=== PATIENT | male | born 1975 | race African-American/Black ===

== ENCOUNTER 2016-07-02 17:03 | Inpatient (IN) | payer OTHER ==
[~2016-07-02] VITALS: Ht 177.8 cm; Wt 140.6 kg
--- NOTE | ~2016-07-02 | EKG ---
[address] [address] ELECTROCARDIOGRAM REPORT Name: JOSEFA DAILY Room #: 443-P ADM IN M.R.#: [id number] Admission: 07/02/16 Attend Phys: Jakub Olvera MD Discharge: Date of : 75 Report #: [id number] THIS REPORT FOR: //name// 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
--- NOTE | ~2016-07-02 | HC ---
[facility] [place] [address] CONSULTATION Name: ABIMBOLAJOSEFA ROBBIE Room #: 443-P ADM IN M.R.#: [id number] Admission: 07/02/16 Attend Phys: Jakub Olvera MD Discharge: Date of : 75 Report #: [id number] THIS REPORT FOR: //name// CC: Leon Olvera DATE OF CONSULTATION: 07/03/2016. REASON FOR CONSULTATION: Chronic kidney disease. HISTORY OF PRESENT ILLNESS: The patient is extremely well known to our service, had several recent admissions [facility] with longstanding diabetes, poorly controlled and now progressive renal disease with creatinine usually running between 2.5 and 3. Last admitted in last month. 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 PAST MEDICAL HISTORY: Hypertension, diabetes, poorly controlled, previous TIA. he has had some diastolic cardiac dysfunction as well. HOME MEDICATIONS: Include losartan I believe 50 mg a day, Bystolic 20 mg a day, insulin, atorvastatin, torsemide 40 mg a day. PAST SURGICAL HISTORY: Also had a laparoscopic cholecystectomy. FAMILY HISTORY: Positive for diabetes and hypertension as well as renal disease. SOCIAL HISTORY: No smoking, no recreational drug use. He is an occasional drinker. REVIEW OF SYSTEMS: GENERAL: He is just having a lot of trouble getting around, easily short-winded. EYES: Vision reasonably good. ENT: Hearing okay, swallows okay. No mouth sores or ulcers. ENDOCRINE: Positive for diabetes. RESPIRATORY: Very easily short-winded with orthopnea. CARDIAC: No chest pain. EXTREMITIES: Massive swelling of lower extremities. GASTROINTESTINAL: No nausea, vomiting, diarrhea or bloody stools. GENITOURINARY: Reasonably good urinary stream without dysuria, hematuria or renal stones. NEUROLOGIC: He has had some previous TIA, but apparently gets around okay, maybe just a little bit of neuropathy in his feet. [facility] [address] [place] [address] CONSULTATION Name: JOSEFA DAILY ROBBIE Room #: 443-P [facility] IN .R.#: [id number] Admission: 07/02/16 Attend Phys: Jakub Olvera MD Discharge: Date of : 75 Report #: [id number] PHYSICAL EXAMINATION: VITAL SIGNS: This is a reasonably comfortable patient in bed and gets very short-winded with minimal exertion. SKIN: Otherwise, unremarkable. SKELETAL: Very obese, developed, well nourished. HEENT: Extraocular movements are full. No icterus. Hearing and vision are intact. Mucous membranes moist. NECK: Supple. CHEST: Shows decreased breath sounds at the bases with some rhonchi. HEART: Regular. ABDOMEN: Soft. EXTREMITIES: There is massive lower extremity edema noted. NEUROLOGIC: Otherwise, grossly intact. LABORATORY DATA: In the past, he has had heavy proteinuria greater than 3 grams. Urinalysis at this time showed 2+ protein, his hemoglobin is 8.8, sodium 142, potassium 3.7, chloride 103, bicarbonate 25, creatinine 2.7, BUN 75. ASSESSMENT AND PLAN: 1. Diabetic nephropathy. He will need to get back on his losartan, try to decrease his proteinuria. 2. Massive fluid overload with nephrotic syndrome, aggressive diuresis underway with IV Lasix and spironolactone. 3. Elevated alkaline phosphatase, could be passive congestion, doubt metabolic bone disease. 4. Diabetes mellitus with poor control. <ELECTRONICALLY SIGNED> By: Tom Manriquez MD 07/04/16 1212 1204 1246 Tom Manriquez MD /nt
--- NOTE | ~2016-07-02 | HC ---
[facility] [place] [address] CONSULTATION Name: ABIMBOLAJOSEFA LEE Room #: 443-P [facility] IN .R.#: [id number] Admission: 07/02/16 Attend Phys: Jakub Olvera MD Discharge: 07/06/16 Date of : 75 Report #: [id number] THIS REPORT FOR: //name// CC: Leon Olvera DATE OF SERVICE: 07/03/2016 ATTENDING PHYSICIAN: Jakub Olvera M.D. REASON FOR CONSULTATION: The patient is a 40-year-old -[place] gentleman, seen in consultation for Dr. Jakub Olvera to assist with management of uncontrolled diabetes mellitus. HISTORY OF PRESENT ILLNESS: This very pleasant young man has been a diabetic for over 15 years. Glycemic control seems to have been chronically poor, with hemoglobin A1c usually in the 12-14 range. Late last year, his C-peptide level was noted to be undetectable. He is on q.i.d. insulin therapy. Presently, he is working with Dr. Leon Dalton and has made some progress in diabetes control, with the latest A1c relatively improved to 11. He has multiple other medical problems, including morbid obesity, malignant hypertension and chronic kidney disease. He was admitted yesterday with significant breathing difficulties and massive edema. Since then, he has been on IV diuretics and is relatively improved at this time. Blood glucose level on admission was over 500, but has now been restored to a normal range after IV insulin therapy on admission. He is now receiving Levemir twice a day and mealtime insulin is to be started soon. PAST MEDICAL HISTORY: 1. Insulin-requiring diabetes mellitus. 2. Hypertension. 3. History of TIA. 4. History of pancreatitis. 5. CKD stage 3. 6. ? CHF. MEDICATIONS: His medications at home include Levemir insulin 30 units b.i.d., Humalog insulin approximately 15-20 units before meals, losartan 50 mg a day, Bystolic 20 mg a day, atorvastatin 40 mg a day and torsemide 40 mg a day. ALLERGIES: No known drug allergies. PAST SURGICAL HISTORY: Status post laparoscopic cholecystectomy. SOCIAL HISTORY: The patient consumes alcohol occasionally. He denies cigarette smoking or any use of other recreational drugs. [address] [address] CONSULTATION Name: JOSEFA DAILY ROBBIE Room #: 443-P [facility] IN .R.#: [id number] Admission: 07/02/16 Attend Phys: Jakub Olvera MD Discharge: 07/06/16 Date of : 75 Report #: [id number] FAMILY MEDICAL HISTORY: Notable for diabetes mellitus, hypertension as well as renal disease. REVIEW OF SYSTEMS: Essentially notable for the features mentioned in the HPI. He denied any recent febrile syndrome. There is history of frequent headache. His visual acuity is fair. He denied any hearing problems. No recent sinus issues. Has not had any anterior neck swelling or pain. Denied dysphonia or dysphagia. He does have significant orthopnea and dyspnea on even mild exertion. Denied any chest pain or palpitations. His appetite is fair. No recent alteration of bowel or bladder habits. He denied any paresthesia. No recent history of any seizures or syncope. No new skin problems. PHYSICAL EXAMINATION: GENERAL: On examination, this is a very pleasant young man. He is morbidly obese. He is lying in bed and seems in no acute distress. There is mild mucosal pallor. No scleral icterus, peripheral cyanosis or clubbing. VITAL SIGNS: His temperature is normal. Heart rate is 82, blood pressure is 182/74 and respiratory rate is 18. He is 5 feet 10 inches and weighs 321 pounds. HEENT EXAMINATION: Mild facial puffiness. Oropharyngeal mucosa is moist. NECK: Supple. No masses. HEART: Heart tones are regular. LUNGS: Reveal decreased breath sounds, both bases. Low rhonchi at this time. ABDOMEN: Obese, nontender. EXTREMITIES: A 2-3+ pedal edema. NEUROLOGIC: No focal deficits. LABORATORY DATA: White count is 5.2, hemoglobin 8.8, hematocrit 27.4 and platelets 252,000. Sodium is 142, potassium 3.7, chloride 103, CO2 of 25, anion gap is 14, BUN is 75 and creatinine is 2.7. ALT is 41, AST is 30. Troponin is negative. ASSESSMENT: 1. Uncontrolled insulin-requiring diabetes mellitus. 2. Malignant hypertension. 3. Chronic kidney disease stage 3. 4. Fluid overload/congestive heart failure. 5. Morbid obesity. PLAN: 1. Continue the ADA diet and Accu-Chek schedule. 2. Agree with current treatment plan, i.e., b.i.d. Levemir. 3. Resume mealtime NovoLog - 15 units q.a.c. 4. I will follow along peripherally during this hospitalization. He will need outpatient followup with Dr. Leon Dalton and the diabetes education team. [facility] [address] [place] [address] CONSULTATION Name: JOSEFA DAILY Room #: 443-P DIS IN M.R.#: [id number] Admission: 07/02/16 Attend Phys: Jakub Olvera MD Discharge: 07/06/16 Date of : 75 Report #: [id number] I appreciate this opportunity to be of assistance in your patient's care. Thank you very much for this consultation. <ELECTRONICALLY SIGNED> By: Ronald Kennedy MD 07/15/16 1228 2024 2335 Ronald Kennedy MD /nt
[~2016-07-02 17:03] MED LIST: AMLODIPINE BESY10 MG PO; AMLODIPINE BESYL5 M1 PO; ASPIR 8181 MG PO; ATORVASTATIN CA10 MG PO; ATORVASTATIN CA40 MG PO; BYSTOLIC 5 MG5 M1 PO; BYSTOLIC10 MG PO; CATAPRES-TTS 20.2 MG TRANSDERM; CATAPRES0.1 MG PO; CATAPRES0.2 MG PO; CIALIS20 MG PO; CLONIDINE-TTS0.3 MG TRANSDERM; COZAAR100 MG PO; DEMADEX20 MG PO; DIOVAN HCT 3201 EAC1 PO; HUMALOG PE100 UNIT/M SC; HUMALOG100 UNIT/1 SUBQ; HUMALOG100 UNIT/2 SQ; HYDROCHLOROTH12.5 M1 PO; IRBESARTAN-HCT1 EAC1 PO; LANTUS100 UNIT/M SUBQ; LEVEMIR SUBQ; NEURONTIN 300300 M1 PO; NORVASC5 MG PO; NOVOLOG100 UNIT/1 SUBQ; POTASSIUM20 PO; TESTOSTERO200 MG/1 M IM; TORSEMIDE20 MG PO; TOUJEO SOL300 UNIT/1 SUBQ; TYLENOL325 MG PO; VICTOZA 3-0.6 MG/0.1 SQ; VICTOZA0.6 MG/0.1 SUBQ
[2016-07-02 17:04] VITALS: BP 213/106
[2016-07-02 18:15] LABS: ABSOLUTE NEUTROPHILS 3.4 thou/uL (1.4-8.2); EOSINOPHILS 8.7 % (0.0-3.0); HEMATOCRIT 27.4 % (42.0-52.0); HEMOGLOBIN 8.8 gm/dL (14.0-18.0); LYMPHOCYTES 15.1 % (24.0-44.0); MCH 25.6 pg (26.0-34.0); MCV 80.1 fL (80.0-100.0); MONOCYTES 10.2 % (1.0-8.0); PLATELET COUNT 252 thou/uL (150-400); RBC 3.42 mil/uL (4.50-6.00); WBC 5.2 thou/uL (4.0-11.0)
[2016-07-02 18:20] LABS: MANUAL DIFF NO
[2016-07-02 18:30] LABS: ANION GAP 13 mmol/L (7-16); BUN 73 mg/dL (7-18); CALCIUM 8.9 mg/dL (8.5-10.1); CHLORIDE 95 mmol/L (98-107); CO2 23 mmol/L (21-32); CREATININE 3.1 mg/dL (0.6-1.3); POTASSIUM 4.9 mmol/L (3.5-5.1); SODIUM 131 mmol/L (136-145)
[2016-07-02 18:40] LABS: NT-PRO BRAIN NAT PEPTIDE 2649 pg/mL (<300); TROPONIN-I < 0.04 ng/mL (<0.04-0.07)
[2016-07-02 18:52] LABS: GLUCOSE 799 mg/dL (70-99)
[2016-07-02 19:20] LABS: ABG SAMPLE TYPE ARTERIAL; BE(vivo) -4.3 mmol/L (-2 to +3); O2(CT) 12.3 mL/dL (15.0-23.0); O2Hb 93.5 % (92.0-98.0); PCO2 33.4 mmHg (35.0-45.0); PO2 78.1 mmHg (80.0-100.0); pH 7.395 (7.360-7.450); sO2 95.6 % (92.0-98.0)
[2016-07-02 19:21] LABS: STICK SITE L.RADIAL
[2016-07-02 21:38] LABS: URINE BILIRUBIN NEGATIVE (Negative); URINE BLOOD 1+ (Negative); URINE COLOR YELLOW; URINE GLUCOSE-RANDOM* 3+ (Negative); URINE KETONES TRACE (Negative); URINE NITRITE NEGATIVE (Negative); URINE PROTEIN (DIPSTICK) 2+ (Negative); URINE SPECIFIC GRAVITY 1.015 (1.003-1.035); URINE UROBILINOGEN 0.2 E.U./dl (0.2-1.0)
[2016-07-02 21:46] LABS: BACTERIA 1-9 Few /HPF (None Seen); CASTS None Seen /LPF (None Seen); CRYSTALS None Seen /LPF (None Seen); SQUAMOUS None Seen /LPF (0-3); URINE RBC 0-2 Rare /HPF (0-2); URINE WBC None Seen /HPF (0-5)
[2016-07-02 23:30] VITALS: BP 178/76
[2016-07-02 23:40] VITALS: BP 170/89
[2016-07-03] VITALS (7 sets, daily range): BP systolic 138–188; BP diastolic 54–88
[2016-07-03 07:25] LABS: ALBUMIN 2.8 g/dL (3.4-5.0); CALCIUM 9.3 mg/dL (8.5-10.1); CREATININE 2.7 mg/dL (0.6-1.3); TOTAL BILIRUBIN 0.4 mg/dL (<0.1-1.0); TOTAL PROTEIN 6.7 g/dL (6.4-8.2)
[2016-07-03 07:28] LABS: POTASSIUM 3.7 mmol/L (3.5-5.1)
[2016-07-04] VITALS (16 sets, daily range): BP systolic 148–197; BP diastolic 63–104
[2016-07-04 06:14] LABS: HEMATOCRIT 26.3 % (42.0-52.0); HEMOGLOBIN 8.6 gm/dL (14.0-18.0); MCH 25.3 pg (26.0-34.0); MCHC 32.8 % (28.0-37.0); MCV 77.2 fL (80.0-100.0); PLATELET COUNT 265 thou/uL (150-400); RBC 3.41 mil/uL (4.50-6.00)
[2016-07-04 06:22] LABS: MANUAL DIFF YES
[2016-07-04 06:29] LABS: ALBUMIN 2.6 g/dL (3.4-5.0); CALCIUM 9.3 mg/dL (8.5-10.1); CREATININE 2.9 mg/dL (0.6-1.3); PHOSPHORUS 4.1 mg/dL (2.5-4.9); POTASSIUM 3.6 mmol/L (3.5-5.1)
[2016-07-04 08:17] LABS: ABSOLUTE NEUTROPHILS 3.1 thou/uL (1.4-8.2); PLATELET ESTIMATE NORMAL; TOTAL CELL COUNT 100
[2016-07-05 00:07] VITALS: BP 146/64
[2016-07-05 03:39] VITALS: BP 193/95
[2016-07-05 04:44] LABS: HEMOGLOBIN 8.1 gm/dL (14.0-18.0); MCH 25.6 pg (26.0-34.0); MCHC 32.2 % (28.0-37.0); MCV 79.3 fL (80.0-100.0); PLATELET COUNT 238 thou/uL (150-400); RBC 3.16 mil/uL (4.50-6.00); RDW 15.5 % (10.5-14.5); WBC 5.6 thou/uL (4.0-11.0)
[2016-07-05 04:45] LABS: MANUAL DIFF YES
[2016-07-05 04:52] LABS: ALBUMIN 2.4 g/dL (3.4-5.0); CALCIUM 9.1 mg/dL (8.5-10.1); CREATININE 2.8 mg/dL (0.6-1.3); PHOSPHORUS 4.9 mg/dL (2.5-4.9)
[2016-07-05 07:32] VITALS: BP 186/88
[2016-07-05 07:49] LABS: ABSOLUTE NEUTROPHILS 2.6 thou/uL (1.4-8.2); TOTAL CELL COUNT 100
[2016-07-05 07:50] LABS: ANISOCYTOSIS 1+
[2016-07-05 11:43] VITALS: BP 149/70
[2016-07-05 14:13] LABS: % SATURATION 13 % (15-55); IRON 35 ug/dL (38-169); TIBC 267 ug/dL (250-450); UIBC 232 ug/dL (111-343)
[2016-07-05 15:45] VITALS: BP 167/86
[2016-07-05 20:41] VITALS: BP 158/73
[2016-07-06 05:15] VITALS: BP 143/57
[2016-07-06 05:39] VITALS: BP 198/98
[2016-07-06 05:47] LABS: HEMOGLOBIN 7.9 gm/dL (14.0-18.0); MCH 25.6 pg (26.0-34.0); MCHC 32.8 % (28.0-37.0); MCV 77.8 fL (80.0-100.0); PLATELET COUNT 246 thou/uL (150-400); RBC 3.08 mil/uL (4.50-6.00); RDW 15.4 % (10.5-14.5); WBC 5.5 thou/uL (4.0-11.0)
[2016-07-06 05:52] LABS: MANUAL DIFF YES
[2016-07-06 06:27] LABS: ALBUMIN 2.4 g/dL (3.4-5.0); CREATININE 2.8 mg/dL (0.6-1.3); MAGNESIUM 1.9 mg/dL (1.8-2.4); PHOSPHORUS 5.3 mg/dL (2.5-4.9); POTASSIUM 4.4 mmol/L (3.5-5.1)
[2016-07-06 08:32] LABS: ABSOLUTE NEUTROPHILS 2.7 thou/uL (1.4-8.2); ANISOCYTOSIS 1+; TOTAL CELL COUNT 100
[2016-07-06 08:59] VITALS: BP 187/78
[2016-07-06 12:58] VITALS: BP 153/65
[2016-07-06] MEDS ORDERED: VENTOLIN HFA 1818 GM INH (14:44)
[2016-07-06] MEDS ORDERED: CEFUROXIME500 MG PO (14:44)
[2016-07-06] MEDS ORDERED: SPIRONOLACTONE25 M1 PO (14:44)
[2016-07-06] MEDS ORDERED: CHLORTHALIDONE25 MG PO (14:44)
[2016-07-06] MEDS ORDERED: LEVEMIR SUBQ (14:44)
[2016-07-06] MEDS ORDERED: AZITHROMYCIN 2250 MG PO (14:44)
[2016-07-06] MEDS ORDERED: AMLODIPINE BESYL5 M1 PO (14:44)
[2016-07-06] MEDS ORDERED: TORSEMIDE20 MG PO (14:44)
[2016-07-06 14:56] VITALS: BP 153/65
[2016-08-08] MEDS ORDERED: BYSTOLIC 5 MG5 M1 PO (10:48)
[2016-08-18] MEDS ORDERED: LOSARTAN POTAS100 MG PO (19:59)
[2016-08-18] MEDS ORDERED: METOLAZONE 5 MG5 MG PO (20:00)
[2016-08-18] MEDS ORDERED: AMLODIPINE BESY10 MG PO (20:01)
[2016-08-18] MEDS ORDERED: HYDRALAZINE 2525 MG PO (21:52)
== END 2016-07-06 15:45 | disposition home or self-care (01) | DRG 177 ==
LOC: ER 17:03 → EROBS 22:40 → 4S 22:40
PROVIDERS: Emergency Medicine; Family Medicine; Internal Medicine; Internal Medicine Nephrology; Nurse Practitioner; Physician Assistant
PROC: 5A09457 Assistance with Respiratory Ventilation, 24-96 Consecutive Hours, Continuous Positive Airway Pressure (ICD-10-PCS; principal; 2016-07-02)
DX: J15.6 Pneumonia due to other Gram-negative bacteria (principal); N17.0 Acute kidney failure with tubular necrosis; I50.32 Chronic diastolic (congestive) heart failure; N18.4 Chronic kidney disease, stage 4 (severe); I13.0 Hypertensive heart and chronic kidney disease with heart failure and stage 1 through stage 4 chronic kidney disease, or unspecified chronic kidney disease; Z68.41 Body mass index [BMI] 40.0-44.9, adult; E11.22 Type 2 diabetes mellitus with diabetic chronic kidney disease; D64.9 Anemia, unspecified; E66.01 Morbid (severe) obesity due to excess calories; E11.21 Type 2 diabetes mellitus with diabetic nephropathy; E11.65 Type 2 diabetes mellitus with hyperglycemia; Z82.49 Family history of ischemic heart disease and other diseases of the circulatory system; Z91.19 Patient's noncompliance with other medical treatment and regimen; Z83.3 Family history of diabetes mellitus; Z83.6 Family history of other diseases of the respiratory system; Z84.1 Family history of disorders of kidney and ureter; Z86.73 Personal history of transient ischemic attack (TIA), and cerebral infarction without residual deficits; Z90.49 Acquired absence of other specified parts of digestive tract; Z79.899 Other long term (current) drug therapy; Z91.013 Allergy to seafood; Z79.4 Long term (current) use of insulin; Z23 Encounter for immunization
CPT/HCPCS: 10100

== ENCOUNTER 2016-09-23 12:49 | Inpatient (IN) | payer OTHER ==
[~2016-09-23] VITALS: Ht 177.8 cm; Wt 133.8 kg
--- NOTE | ~2016-09-23 | HC ---
[facility] [place] [address] CONSULTATION Name: ABIMBOLAJOSEFA LEE Room #: 308-P [facility] IN M.R.#: [id number] Admission: 09/23/16 Attend Phys: Maira Santiago Discharge: Date of : 75 Report #: [id number] THIS REPORT FOR: //name// CC: Leon Santiago DATE OF SERVICE: 09/24/2016 REASON FOR CONSULTATION: Progressive renal failure, edema, and uncontrolled blood pressure. HISTORY OF PRESENT ILLNESS: This is a 41-year-old male who we have seen on multiple prior admissions here to [facility]. He has a history of longstanding diabetes mellitus, progressive diabetic nephropathy. I last saw him in February of 2016, but he has been back in the hospital in March, April, May of 2016 and in June of 2016. During that time, he has shown progression of his diabetic nephropathy and chronic kidney disease. He has difficulty to control blood pressure. He has undergone multiple changes in his blood pressure medications. He has no nephrotic range proteinuria. When we first checked it late last year, it was in the about 3 gram range, but on a recent check in the office it was up to 9 grams. With that he has had further volume overload and edema. He has been unable to control with oral diuretics. He has been working hard on trying to control his diet, particularly from a sodium restriction standpoint. With that blood pressure has been difficult to control. He has had multiple different caregivers adjusting his blood pressure meds, so that has been a bit of an issue. Says he does not have any trouble voiding. He has had more dyspnea on exertion. Blood pressures have been documented and continued to be fairly elevated. PAST MEDICAL HISTORY: Diabetes mellitus since his mid 20s, longstanding severe obesity. He has also had severe hypertension, poorly controlled. He also last fall had episode of acute pancreatitis. That eventually resolved. Otherwise, as noted above. MEDICATIONS: From admission has listed here. I would note there are slight differences between this and our office list. Aspirin 81 mg daily, chlorthalidone 25 mg daily, hydralazine 25 mg b.i.d., Levemir 35 units b.i.d., Humalog on a sliding scale, losartan 100 mg daily, Bystolic 20 mg daily, spironolactone 50 mg daily and that had been at 50 mg b.i.d., but it was recently decreased due to some mild hyperkalemia. Torsemide is listed as 40 mg b.i.d., but that had also been changed in the office to 60 mg once a day. He denies any nonsteroidal exposures. ALLERGIES: Include CONTRAST MEDIA. FAMILY HISTORY: Grandmother had some renal failure at the time of her . [address] [address] CONSULTATION Name: JOSEFA DAILY Room #: 308-P [facility] IN M.R.#: [id number] Admission: 09/23/16 Attend Phys: Maira Santiago Discharge: Date of : 75 Report #: [id number] Great uncle also had renal disease and was on dialysis. No first order relatives with renal failure. SOCIAL HISTORY: The patient is , lives in [place], [place]. 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 He also is involved in caring for an elderly granddaughter. He is nonsmoker. REVIEW OF SYSTEMS: Worsening dyspnea with exertion. He has had some mild cough with occasional green sputum. No pleuritic chest pain. No exertional chest pain or palpitations. No nausea. He has been trying to work on his diet including his sodium restriction. He has noticed increasing swelling including abdominal girth as well as lower extremities and that has made him more difficult to ambulate. He is unaware of fevers, chills or sweats. No difficulty voiding urine. PHYSICAL EXAMINATION: GENERAL: A 41-year-old male, awake and responsive. VITAL SIGNS: Blood pressure 155/75, heart rate is 61, temperature 97.3. He was 191/80 actually on presentation to the emergency room. HEENT: Shows pupils are equal and reactive. Sclerae are nonicteric. Oral mucosa is moist. NECK: Veins are mildly distended more on the left than the right. Neck is otherwise supple without adenopathy. CHEST: Shows some decreased breath sounds in the bases. No CVA tenderness. HEART: Has a regular rate and rhythm. I hear no gallop at this time. ABDOMEN: Has active bowel sounds, is obese, is nontender. He has 2+ abdominal wall edema. I cannot palpate organomegaly or masses. EXTREMITIES: Show 1+ bilateral upper extremity edema, 2+ bilateral of the thighs and 3+ bilateral lower extremity edema below the knees. LABORATORY DATA: On admission, sodium 133, potassium 5.3, chloride 103, bicarbonate 18, BUN 94, creatinine 4.9, glucose 531, calcium 8.7, phosphorus 1.9, total protein 6.9, albumin 2.3, which is the lowest it has been in 6 months or more. White count 6.6, hemoglobin 8.5, hematocrit 26.5. That is the similar range that his hemoglobin has been in. Platelets 254,000. Blood gas, pH 7.33, pCO2 of 36, pO2 of 88. Urine was not done in the emergency room. Chest x-ray shows mild decrease in volume. No orestes pulmonary edema or infiltrates. ASSESSMENT: 1. Progressive chronic kidney disease, now stage V. Creatinine level is elevated above its baseline. On a recent office check, he had 9 g of proteinuria. Based upon his very low serum albumin and the amount of his edema, this nephrotic proteinuria is no doubt continued. At this point, we need to diuresis. We need to get his blood pressure down. Hopefully we will see [facility] [address] [place] [address] CONSULTATION Name: JOSEFA DAILY Room #: 308-P [facility] IN ..#: [id number] Admission: 09/23/16 Attend Phys: Maira Santiago Discharge: Date of : 75 Report #: [id number] some stabilization of his kidney function, but I reviewed with the patient that over the past year he has had a steady progressive decline in his overall renal function. He has been in the presence of discussion in the office concerning potential need for dialysis therapy. He does not absolutely need dialysis at this time, but he is having that direction. So we will work with him on that. I would like to get a vein mapping done and get a fistula of his arm for potentially needing that down the line. 2. Nephrotic proteinuria with massive edema. He fits the criteria of nephrotic syndrome. For some reason, he was not put on his angiotensin receptor dread on admission. I am going to put him back on that and actually double the dose to try to get his proteinuria down. 3. Edema, which is severe. Again we need blood pressure control, attempts in improving his proteinuria, and then intensify both his furosemide drip and adding a secondary diuretic in the form of a metolazone. We will likely want to add back some spironolactone down the line depending what his potassium level does. 4. Hypertension. He has been on a lot of different vasodilators. It does not make any sense to have him on amlodipine plus hydralazine plus taking the nebivolol. I will get him back on the losartan. I will continue some amlodipine and then we will try to get him diuresed and adjust from there going forward. 5. Longstanding diabetes mellitus, poorly controlled. We need to work in getting sugar improved. 6. Longstanding obesity. PLAN: 1. Increase Lasix to 20 mg per hour. 2. Start metolazone 5 mg daily as a secondary diuretic. 3. Continue amlodipine. 4. Get him back on losartan, but I will increase the dose to 100 mg b.i.d. 5. Recheck labs. 6. Recheck proteinuria. 7. Recheck hemoglobin and iron studies as he recently got on iron infusion as an outpatient. We will make sure that level is up adequately. If that is the case, we will get him started on some erythropoietin stimulating agents. 8. We will follow along closely in the care of this chronically ill patient. <ELECTRONICALLY SIGNED> By: Clement Otoole MD 09/24/16 1739 1011 1209 Clement Otoole MD /nt
--- NOTE | ~2016-09-23 | EKG ---
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
[~2016-09-23 12:49] MED LIST changes: +AZITHROMYCIN 2250 MG PO; +CEFUROXIME500 MG PO; +CHLORTHALIDONE25 MG PO; +HYDRALAZINE 2525 MG PO; +LOSARTAN POTAS100 MG PO; +METOLAZONE 5 MG5 MG PO; +SPIRONOLACTONE25 M1 PO; +VENTOLIN HFA 1818 GM INH
[2016-09-23 12:51] VITALS: BP 191/80
[2016-09-23 13:35] LABS: ABSOLUTE NEUTROPHILS 4.8 thou/uL (1.4-8.2); EOSINOPHILS 4.1 % (0.0-3.0); HEMATOCRIT 26.5 % (42.0-52.0); HEMOGLOBIN 8.5 gm/dL (14.0-18.0); LYMPHOCYTES 12.7 % (24.0-44.0); MCH 26.2 pg (26.0-34.0); MCHC 32.3 g/dL (28.0-37.0); MCV 81.2 fL (80.0-100.0); MONOCYTES 9.1 % (1.0-8.0); PLATELET COUNT 254 thou/uL (150-400); POLYS 73.1 % (36.0-66.0); RBC 3.26 mil/uL (4.50-6.00); RDW 17.1 % (10.5-14.5); WBC 6.6 thou/uL (4.0-11.0)
[2016-09-23 13:43] LABS: MANUAL DIFF NO
[2016-09-23] MEDS ORDERED: ASPIR 8181 MG PO (13:52)
[2016-09-23 13:58] LABS: ALBUMIN 2.3 g/dL (3.4-5.0); CALCIUM 8.7 mg/dL (8.5-10.1); CREATININE 4.9 mg/dL (0.6-1.3); TOTAL BILIRUBIN 0.4 mg/dL (<0.1-1.0); TOTAL PROTEIN 6.9 g/dL (6.4-8.2)
[2016-09-23 14:02] LABS: POTASSIUM 5.3 mmol/L (3.5-5.1)
[2016-09-23 14:36] LABS: ABG SAMPLE TYPE ARTERIAL; BE(vivo) -6.6 mmol/L (-2 to +3); HCO3 18.7 mmol/L (22.0-26.0); LACTATE 1.23 mmol/L (0.5-2.0); O2(CT) 12.4 mL/dL (15.0-23.0); O2Hb 95.1 % (92.0-98.0); PCO2 36.3 mmHg (35.0-45.0); PO2 88.1 mmHg (80.0-100.0); STICK SITE R.RADIAL; pH 7.329 (7.360-7.450); sO2 96.2 % (92.0-98.0); tCO2 19.8 mmol/L (24.0-30.0)
[2016-09-23 16:50] VITALS: BP 181/79
[2016-09-23 19:41] VITALS: BP 180/99
[2016-09-23 21:50] VITALS: BP 168/83
[2016-09-24 00:10] VITALS: BP 140/65
[2016-09-24 04:00] VITALS: BP 125/61
[2016-09-24 07:56] VITALS: BP 155/75
[2016-09-24 20:00] VITALS: BP 148/69
[2016-09-25 00:11] LABS: URINE CREATININE-RANDOM* 33.9 mg/dL (Not Estab.)
[2016-09-25 02:09] LABS: URINE PROTEIN-RANDOM* 180.1 mg/dL (Not Estab.)
[2016-09-25 04:15] VITALS: BP 143/42
[2016-09-25 05:24] LABS: HEMOGLOBIN 8.8 gm/dL (14.0-18.0); MCHC 32.8 g/dL (28.0-37.0); MCV 79.4 fL (80.0-100.0); RBC 3.4 mil/uL (4.50-6.00); WBC 5.9 thou/uL (4.0-11.0)
[2016-09-25 05:56] LABS: ALBUMIN 2.4 g/dL (3.4-5.0); CALCIUM 9.1 mg/dL (8.5-10.1); CREATININE 4.2 mg/dL (0.7-1.3); POTASSIUM 4.6 mmol/L (3.5-5.1)
[2016-09-25 07:55] VITALS: BP 184/88
[2016-09-25 16:24] VITALS: BP 140/60
[2016-09-25 20:00] VITALS: BP 118/76
[2016-09-26 01:06] LABS: GLYCOHEMOGLOBIN (HGB A1C) 9.1 % (4.8-5.6)
[2016-09-26 04:20] VITALS: BP 186/93
[2016-09-26 07:34] LABS: ALBUMIN 2.3 g/dL (3.4-5.0); CALCIUM 9.2 mg/dL (8.5-10.1); CREATININE 4.4 mg/dL (0.7-1.3); PHOSPHORUS 5.2 mg/dL (2.5-4.9); POTASSIUM 4.7 mmol/L (3.5-5.1)
[2016-09-26 08:02] VITALS: BP 178/84
[2016-09-26 15:09] VITALS: BP 155/72
[2016-09-26 20:00] VITALS: BP 141/73
[2016-09-27 04:00] VITALS: BP 156/88
[2016-09-27 05:39] LABS: ALBUMIN 2.3 g/dL (3.4-5.0); CALCIUM 9.1 mg/dL (8.5-10.1); CREATININE 4.6 mg/dL (0.7-1.3); POTASSIUM 4.6 mmol/L (3.5-5.1)
[2016-09-27 09:20] VITALS: BP 168/84
[2016-09-27 21:04] VITALS: BP 147/73
[2016-09-28 04:00] VITALS: BP 159/91
[2016-09-28 05:56] LABS: ALBUMIN 2.5 g/dL (3.4-5.0); CREATININE 4.6 mg/dL (0.7-1.3); PHOSPHORUS 5.9 mg/dL (2.5-4.9); POTASSIUM 4.4 mmol/L (3.5-5.1)
[2016-09-28 07:21] VITALS: BP 170/83
[2016-09-28] MEDS ORDERED: HUMALOG100 UNIT/1 SUBQ (13:19)
[2016-09-28] MEDS ORDERED: CARVEDILOL25 MG PO (13:19)
[2016-09-28] MEDS ORDERED: METOLAZONE 5 MG5 MG PO (13:19)
[2016-09-28 13:43] VITALS: BP 170/83
[2016-09-28 15:33] VITALS: BP 153/76
== END 2016-09-28 18:25 | disposition home or self-care (01) | DRG 682 ==
LOC: ER 12:49 → EROBS 15:19 → 3N 15:19
PROVIDERS: Hospitalist; Internal Medicine Nephrology; Physician Assistant
DX: N17.9 Acute kidney failure, unspecified (principal); J96.00 Acute respiratory failure, unspecified whether with hypoxia or hypercapnia; I12.0 Hypertensive chronic kidney disease with stage 5 chronic kidney disease or end stage renal disease; Z68.41 Body mass index [BMI] 40.0-44.9, adult; E10.65 Type 1 diabetes mellitus with hyperglycemia; N18.5 Chronic kidney disease, stage 5; E10.22 Type 1 diabetes mellitus with diabetic chronic kidney disease; E66.9 Obesity, unspecified; D64.9 Anemia, unspecified; Z86.73 Personal history of transient ischemic attack (TIA), and cerebral infarction without residual deficits; Z90.49 Acquired absence of other specified parts of digestive tract; Z91.14 Patient's other noncompliance with medication regimen; Z88.8 Allergy status to other drugs, medicaments and biological substances; Z91.013 Allergy to seafood; Z84.2 Family history of other diseases of the genitourinary system
CPT/HCPCS: 10096

== ENCOUNTER 2016-09-30 22:57 | Inpatient (IN) | payer OTHER ==
[~2016-09-30] VITALS: Ht 177.8 cm; Wt 129.3 kg
--- NOTE | ~2016-09-30 | EKG ---
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 <ELECTRONICALLY SIGNED> By: Tejinder Graff MD, [facility] 10/01/16 0836 2355 2355 Tejinder Graff MD, [facility] /EPI
[~2016-09-30 22:57] MED LIST changes: +CARVEDILOL25 MG PO
[2016-09-30 22:58] VITALS: BP 149/81
[2016-09-30 23:25] LABS: HEMOGLOBIN 9.9 gm/dL (14.0-18.0); MCHC 33.1 g/dL (28.0-37.0); MCV 78.5 fL (80.0-100.0); RBC 3.82 mil/uL (4.50-6.00); RDW 15.9 % (10.5-14.5); WBC 6.5 thou/uL (4.0-11.0)
[2016-09-30 23:38] LABS: APTT 27.1 Seconds (24.5-32.8); PROTIME 10.3 Seconds (9.3-11.4)
[2016-09-30 23:39] LABS: ANION GAP 10 mmol/L (7-16); BUN 114 mg/dL (7-18); CALCIUM 9.6 mg/dL (8.5-10.1); CHLORIDE 98 mmol/L (98-107); CO2 28 mmol/L (21-32); GLUCOSE 129 mg/dL (74-106); POTASSIUM 4.1 mmol/L (3.5-5.1); SODIUM 136 mmol/L (136-145); TROPONIN-I < 0.04 ng/mL (<0.04-0.07)
[2016-09-30 23:40] LABS: CREATININE 5.6 mg/dL (0.7-1.3)
[2016-10-01] VITALS (9 sets, daily range): BP systolic 92–187; BP diastolic 55–82
[2016-10-01] MEDS ORDERED: ASPIR 8181 MG PO (00:49)
[2016-10-01] MEDS ORDERED: HYDRALAZINE 2525 MG (00:49)
[2016-10-02 04:24] VITALS: BP 161/86
[2016-10-02 06:11] LABS: ABSOLUTE NEUTROPHILS 2.7 thou/uL (1.4-8.2); BASOPHILS 1.6 % (0.0-2.0); EOSINOPHILS 7.1 % (0.0-3.0); HEMATOCRIT 30.2 % (42.0-52.0); LYMPHOCYTES 21.4 % (24.0-44.0); MCH 26.2 pg (26.0-34.0); MCHC 33.3 g/dL (28.0-37.0); MCV 78.6 fL (80.0-100.0); MONOCYTES 11.7 % (1.0-8.0); PLATELET COUNT 331 thou/uL (150-400); POLYS 58.2 % (36.0-66.0); RBC 3.84 mil/uL (4.50-6.00); RDW 16.2 % (10.5-14.5); WBC 4.7 thou/uL (4.0-11.0)
[2016-10-02 06:18] LABS: MANUAL DIFF NO
[2016-10-02 06:31] LABS: ALBUMIN 2.5 g/dL (3.4-5.0); CREATININE 4.7 mg/dL (0.7-1.3); MAGNESIUM 2.2 mg/dL (1.8-2.4); PHOSPHORUS 5.3 mg/dL (2.5-4.9); TOTAL BILIRUBIN 0.3 mg/dL (<0.1-1.0); TOTAL PROTEIN 7.4 g/dL (6.4-8.2)
[2016-10-02 08:00] VITALS: BP 171/92
[2016-10-02 12:00] VITALS: BP 162/80
[2016-10-02 16:00] VITALS: BP 177/72
[2016-10-02 17:43] VITALS: BP 137/64
[2016-10-02 19:18] VITALS: BP 150/68
[2016-10-03 03:34] VITALS: BP 161/79
[2016-10-03 05:43] LABS: ALBUMIN 2.3 g/dL (3.4-5.0); CREATININE 4.7 mg/dL (0.7-1.3)
[2016-10-03 07:49] VITALS: BP 161/83
[2016-10-03] MEDS ORDERED: HYDRALAZINE 5050 MG PO (11:37)
[2016-10-03] MEDS ORDERED: LEVEMIR SUBQ ×2 (11:37)
[2016-10-03 12:40] VITALS: BP 161/83
[2016-10-03 13:37] VITALS: BP 161/83
== END 2016-10-03 13:30 | disposition home or self-care (01) | DRG 312 ==
LOC: ER 22:57 → 4S 10-01 01:18 → EROBS 10-01 01:18 → 4S 10-01 01:50
PROVIDERS: Emergency Medicine; Hospitalist; Nurse Practitioner
DX: I95.1 Orthostatic hypotension (principal); E43 Unspecified severe protein-calorie malnutrition; N17.9 Acute kidney failure, unspecified; I12.0 Hypertensive chronic kidney disease with stage 5 chronic kidney disease or end stage renal disease; N18.5 Chronic kidney disease, stage 5; E11.65 Type 2 diabetes mellitus with hyperglycemia; E11.22 Type 2 diabetes mellitus with diabetic chronic kidney disease; D63.8 Anemia in other chronic diseases classified elsewhere; Z90.49 Acquired absence of other specified parts of digestive tract; Z86.73 Personal history of transient ischemic attack (TIA), and cerebral infarction without residual deficits; Z91.041 Radiographic dye allergy status; Z91.013 Allergy to seafood; Z87.01 Personal history of pneumonia (recurrent); Z83.3 Family history of diabetes mellitus; Z82.49 Family history of ischemic heart disease and other diseases of the circulatory system; Z79.82 Long term (current) use of aspirin; Z79.899 Other long term (current) drug therapy; Z82.5 Family history of asthma and other chronic lower respiratory diseases
CPT/HCPCS: 10100

== ENCOUNTER 2016-10-11 01:46 | Inpatient (IN) | payer OTHER ==
[~2016-10-11] VITALS: Ht 172.7 cm; Wt 125.6 kg
[2016-10-11] VITALS (19 sets, daily range): BP systolic 98–172; BP diastolic 33–85
--- NOTE | ~2016-10-11 | HC ---
[facility] [place] [address] CONSULTATION Name: ABIMBOLAJOSEFA ROBBIE Room #: 237-P [facility] IN M.R.#: [id number] Admission: 10/11/16 Attend Phys: Wilfredo Smith MD Discharge: Date of : 75 Report #: [id number] THIS REPORT FOR: //name// CC: Leon Garrison [facility] REASON FOR PRESENTATION: Nausea and vomiting, lethargy. REASON FOR CONSULTATION: Acute on top of chronic kidney disease. HISTORY OF PRESENT ILLNESS: This is a very well known patient to me. He just got discharged from the hospital on the 10/03/2016. He has an extreme noncompliance history. He has long-standing diabetes mellitus and hypertension. He also has chronic kidney disease with baseline creatinine running in the 4. He presented to the hospital with a constellation of symptoms and was found to be in profound hyperglycemic status with profound acidosis, hyperkalemia, hyponatremia. The patient is currently not able to provide me with history as he has some mental status changes. Most of the history was obtained from his previous records. As I have stated, he is known to have chronic kidney disease with proteinuria, thought to be related to his diabetes mellitus. He has an extremely high hemoglobin A1c in the last couple of years. His blood pressure had been a major issue and there had been numerous adjustment of his blood pressure medications. PAST MEDICAL HISTORY: 1. Diabetes mellitus. 2. Obesity. 3. Hypertension. 4. Advanced chronic kidney disease. 5. Alkalosis status post cholecystitis. 6. Obstructive sleep apnea. 7. Anemia. 8. Remote history of diabetic ketoacidosis . MEDICATIONS: . 1. Torsemide. 2. Levemir. 3. Carvedilol. 4. Metolazone. 5. Lispro. ALLERGIES: IODINE. SOCIAL HISTORY: No drug or alcohol abuse. FIRST REVIEW OF SYSTEMS: [facility] [address] [place] [address] CONSULTATION Name: ABIMBOLAJOSEFA LEE Room #: 237-P [facility] IN [facility].#: [id number] Admission: 10/11/16 Attend Phys: Wilfredo Smith MD Discharge: Date of : 75 Report #: [id number] GENERAL: No fever or chills. CARDIOVASCULAR: No chest pain or palpitation. PULMONARY: No cough or hemoptysis. GASTROINTESTINAL: Significant for nausea, vomiting, diarrhea. GENITOURINARY: No frequency, no urgency. NEUROLOGICAL: Significant weakness. PHYSICAL EXAMINATION: GENERAL: The patient is currently asleep, he is a little lethargic. VITAL SIGNS: Most recent blood pressure values reviewed. He has a blood pressure of 108/42. He is afebrile with a temperature 36.3. HEAD AND NECK: Dry mucous membranes. CHEST: Decreased air entry bilaterally with no crackles. CARDIOVASCULAR: Regular with no rub detected. ABDOMEN: Soft, nontender with no hepatosplenomegaly. LOWER EXTREMITIES: No edema with intact peripheral pulses. LABORATORY VALUES: Reviewed. Blood gas revealed a pH of 7.20 with bicarbonate of . Hemoglobin 9.5. Chemistry from yesterday revealed a sodium of 111, potassium 7.3, chloride 73, carbon dioxide of 5 for BUN of 134 and a creatinine of 6.7, blood sugar of . KUB was not remarkable. ASSESSMENT, IMPRESSION AND PLAN: 1. Diabetic ketoacidosis with severe electrolyte derangements including the following. 2. Hyponatremia. 3. Hyperkalemia. 4. Ketosis status. 5. Agree with the ICU admission. 6. Initiate DKA protocol. 7. Serial blood gases. 8. Serial BMP. 9. IV fluids, add normal saline for now once the blood sugar gets down to around 250, will switch to D5 half normal. 10. Pending the repeat labs, we will decide about further treatment of his hyperkalemia; however, with correction of acidosis, his hyperkalemia should resolve. 11. Hold all antihypertensive medications. 12. Hold diuretics for now. 13. Compliance remains to be a major issue, he is an critically ill situation. <ELECTRONICALLY SIGNED> By: Santosh Perez MD 10/12/16 0921 0759 1001 Santosh Perez MD /nt
--- NOTE | ~2016-10-11 | EKG ---
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 : 1975 Requested By: Eddie Colon Order Number: [id number] MD: Tejinder Graff Measurements Intervals [place] Rate: 81 P: 71 NE: 172 QRS: 106 QRSD: 129 T: 20 QT: 428 QTc: 497 Interpretive Statements Sinus rhythm Hyperacute T wave abnormality, consider hyperkalemia Compared to ECG 09/30/2016 23:55:25 Intraventricular conduction delay now present ST (T wave) deviation now present Ventricular premature complex(es) no longer present Electronically Signed On 10-11-2016 9:02:25 CDT by Tejinder Graff [email or web address] <ELECTRONICALLY SIGNED> By: Tejinder Graff MD, [facility] 10/11/16 0902 0157 0157 Tejinder Graff MD, [facility] /EPI
--- NOTE | ~2016-10-11 | 2DMMODE ---
[facility] [address] [place] [address] 2 D/M-MODE ECHOCARDIOGRAM Name: ABIMBOLAJOSEFA ROBBIE Room #: 237-P [facility] IN .R.#: [id number] Admission: 10/11/16 Attend Phys: Meli Warren MD Discharge: Date of : 75 Date of Service: 10/11/16 1439 Report #: [id number] THIS REPORT FOR: //name// APPROVED REPORT Study performed: 10/11/2016 12:12:33 EXAM: Comprehensive 2D, Doppler, and color-flow Echocardiogram Patient Location: Bedside Room #: 237 Blood Pressure: 118/52 mmHg HR: 72 bpm Rhythm: NSR Other Information Study Quality: Good Indications Diabetes Chest Pain Hypertension/HDD 2D Dimensions LVEF(%): 66.43 (>50%) IVSd: 14.08 (7-11mm) LVOT Diam: 22.42 (18-24mm) LVDd: 50.43 mm PWd: 13.61 (7-11mm) Ascending Aorta: 26.66 mm LVDs: 31.85 (25-40mm) Aortic Root: 30.83 mm Younger's LVEF: 66.43 % Volumes Left Atrial Volume (Systole) Single Plane 4CH: 68.08 mL Single Plane 2CH: 50.59 mL LA ESV Index: 29.00 mL/m2 Aortic Valve AoV Peak Sandro.: 1.43 m/s AO Peak Gr.: 8.54 mmHg LV Max P.15 mmHg LV Max: 1.02 m/s Mitral Valve E/A Ratio: 1.2 [facility] [address] [place] [address] 2 D/M-MODE ECHOCARDIOGRAM Name: JOSEFA DAILY Room #: 237-P [facility] IN [facility]#: [id number] Admission: 10/11/16 Attend Phys: Meli Warren MD Discharge: Date of : 75 Date of Service: 10/11/16 1439 Report #: [id number] MV Decel. Time: 246.99 ms MV E Max Sandro.: 1.01 m/s MV A Sandro.: 0.81 m/s MV PHT: 71.63 ms Pulmonary Valve PV Peak Sandro.: 1.02 m/s PV Peak Gr.: 4.16 mmHg Pulmonary Vein P Vein S: 46.6 m/s P Vein D: 64.3 m/s P Vein A Dur.: 27.9 m/s PVa Duration: 125 Tricuspid Valve RAP Estimate: 10.00 mmHg Left Ventricle The left ventricle is normal size. There is normal LV segmental wall motion. Mild to moderate concentric left ventricular hypertrophy. Left ventricular systolic function is normal. The left ventricular ejection fraction is within the normal range. LVEF: 66% The left ventricular diastolic function is normal. Right Ventricle The right ventricle is normal size. The right ventricular systolic function is normal. Atria The left atrium size is normal. The right atrium size is normal. Aortic Valve The aortic valve is normal in structure. No aortic regurgitation is present. There is no aortic valvular stenosis. Mitral Valve The mitral valve is normal in structure. There is no mitral valve regurgitation noted. No evidence of mitral valve stenosis. Tricuspid Valve The tricuspid valve is normal in structure. There is no tricuspid valve regurgitation noted. Pulmonic Valve The pulmonary valve is normal in structure. Trace pulmonic regurgitation. [facility] [place] [address] 2 D/M-MODE ECHOCARDIOGRAM Name: JOSEFA DAILY Room #: 237-P [facility] IN M.R.#: [id number] Admission: 10/11/16 Attend Phys: Meli Warren MD Discharge: Date of : 75 Date of Service: 10/11/16 1439 Report #: [id number] Great Vessels The aortic root is normal in size. IVC is normal in size and collapses with >50% inspiration Pericardium There is no pericardial effusion. <Conclusion> The left ventricle is normal size. LVEF: 66% The aortic valve is normal in structure. No aortic regurgitation is present. The mitral valve is normal in structure. There is no mitral valve regurgitation noted. The tricuspid valve is normal in structure. The pulmonary valve is normal in structure. Trace pulmonic regurgitation. <ELECTRONICALLY SIGNED> By: Altaf Corado MD 10/11/16 1439 1439 1439 Altaf Corado MD /INF
--- NOTE | ~2016-10-11 | EKG ---
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 : 1975 Requested By: Eddie Colon Order Number: [id number] MD: Tejinder Graff Measurements Intervals [place] Rate: 83 P: 57 [place]: 169 QRS: 102 QRSD: 131 T: 19 QT: 412 QTc: 485 Interpretive Statements Sinus rhythm Nonspecific intraventricular conduction delay Hyperacute T wave abnormality, consider hyperkalemia Compared to ECG 09/30/2016 23:55:25 no significant change was found Electronically Signed On 10-11-2016 9:03:04 CDT by Tejinder Graff [email or web address] <ELECTRONICALLY SIGNED> By: Tejinder Graff MD, [facility] 10/11/16 0903 2 2 Tejinder Graff MD, [facility] /EPI
[~2016-10-11 01:46] MED LIST changes: +HYDRALAZINE 2525 MG; +HYDRALAZINE 5050 MG PO
[2016-10-11 02:13] LABS: HEMATOCRIT 33.4 % (42.0-52.0); HEMOGLOBIN 9.5 gm/dL (14.0-18.0); MCH 26.5 pg (26.0-34.0); MCHC 28.5 g/dL (28.0-37.0); MCV 92.9 fL (80.0-100.0); PLATELET COUNT 244 thou/uL (150-400); RBC 3.59 mil/uL (4.50-6.00); RDW 15.9 % (10.5-14.5)
[2016-10-11 02:14] LABS: MANUAL DIFF YES
[2016-10-11 02:25] LABS: APTT 32.4 Seconds (24.5-32.8); PROTIME 10.6 Seconds (9.3-11.4)
[2016-10-11 02:40] LABS: ALBUMIN 2.6 g/dL (3.4-5.0); ALKALINE PHOSPHATASE 390 U/L (46-116); BUN 134 mg/dL (7-18); CHLORIDE 73 mmol/L (98-107); CK-MB MASS 5.5 ng/mL (<0.5-3.6); CREATININE 6.7 mg/dL (0.7-1.3); MAGNESIUM 2.6 mg/dL (1.8-2.4); NT-PRO BRAIN NAT PEPTIDE 1495 pg/mL (<300); SGOT 21 U/L (15-37); SGPT 25 U/L (30-65); TOTAL BILIRUBIN 0.7 mg/dL (<0.1-1.0); TOTAL PROTEIN 7.3 g/dL (6.4-8.2); TROPONIN-I < 0.04 ng/mL (<0.04-0.07)
[2016-10-11 02:41] LABS: ANION GAP 33 mmol/L (7-16)
[2016-10-11 02:45] LABS: SODIUM 111 mmol/L (136-145)
[2016-10-11 02:46] LABS: CO2 5 mmol/L (21-32); GLUCOSE 1539 mg/dL (74-106); POTASSIUM 7.3 mmol/L (3.5-5.1)
[2016-10-11 02:52] LABS: ABSOLUTE NEUTROPHILS 8.2 thou/uL (1.4-8.2); TOTAL CELL COUNT 100
[2016-10-11 03:06] LABS: URINE BILIRUBIN NEGATIVE (Negative); URINE BLOOD 1+ (Negative); URINE COLOR YELLOW; URINE GLUCOSE-RANDOM* 3+ (Negative); URINE KETONES TRACE (Negative); URINE LEUKOCYTES-REFLEX NEGATIVE (Negative); URINE PROTEIN (DIPSTICK) 3+ (Negative); URINE SPECIFIC GRAVITY 1.025 (1.003-1.035); URINE UROBILINOGEN 0.2 E.U./dl (0.2-1.0)
[2016-10-11 03:17] LABS: CASTS None Seen /LPF (None Seen); SQUAMOUS 0-3 Few /LPF (0-3); URINE WBC-REFLEX None Seen /HPF (0-5)
[2016-10-11 03:18] LABS: CRYSTALS None Seen /LPF (None Seen); FINE GRANULAR CASTS 0-3 Few /LPF (None Seen); HYALINE CASTS 0-3 Few /LPF (None Seen); URINE RBC None Seen /HPF (0-2)
[2016-10-11 04:21] LABS: PHOSPHORUS 11.3 mg/dL (2.5-4.9); TROPONIN-I < 0.04 ng/mL (<0.04-0.07)
[2016-10-11 04:25] LABS: GLUCOSE 1528 mg/dL (74-106); POTASSIUM 6.9 mmol/L (3.5-5.1)
[2016-10-11 04:53] LABS: ABG SAMPLE TYPE ARTERIAL; BE(vivo) -24.2 mmol/L (-2 to +3); HCO3 5.2 mmol/L (22.0-26.0); LACTATE 3.42 mmol/L (0.5-2.0); O2(CT) 12.9 mL/dL (15.0-23.0); O2Hb 96.7 % (92.0-98.0); PO2 123.6 mmHg (80.0-100.0); sO2 96.5 % (92.0-98.0); tCO2 5.9 mmol/L (24.0-30.0)
[2016-10-11 04:57] LABS: PCO2 21.3 mmHg (35.0-45.0); STICK SITE R.RADIAL; pH 7.007 (7.360-7.450)
[2016-10-11 08:22] LABS: ABG SAMPLE TYPE ARTERIAL; BE(vivo) -17.4 mmol/L (-2 to +3); HCO3 9.5 mmol/L (22.0-26.0); LACTATE 2.06 mmol/L (0.5-2.0); O2(CT) 12.3 mL/dL (15.0-23.0); O2Hb 95.8 % (92.0-98.0); PCO2 26.4 mmHg (35.0-45.0); PO2 98.2 mmHg (80.0-100.0); STICK SITE R.RADIAL; pH 7.175 (7.360-7.450); sO2 95.9 % (92.0-98.0); tCO2 10.3 mmol/L (24.0-30.0)
[2016-10-11 08:50] LABS: ALBUMIN 2.2 g/dL (3.4-5.0); BUN 138 mg/dL (7-18); CALCIUM 8.8 mg/dL (8.5-10.1); CHLORIDE 81 mmol/L (98-107); CREATININE 6.8 mg/dL (0.7-1.3); MAGNESIUM 2.5 mg/dL (1.8-2.4); TROPONIN-I < 0.04 ng/mL (<0.04-0.07)
[2016-10-11 08:53] LABS: ANION GAP 24 mmol/L (7-16); POTASSIUM 4.6 mmol/L (3.5-5.1)
[2016-10-11 09:08] LABS: CO2 11 mmol/L (21-32); GLUCOSE 1287 mg/dL (74-106); SODIUM 116 mmol/L (136-145)
[2016-10-11 12:22] LABS: ABG SAMPLE TYPE ARTERIAL; BE(vivo) -11.6 mmol/L (-2 to +3); HCO3 14.3 mmol/L (22.0-26.0); LACTATE 1.88 mmol/L (0.5-2.0); O2(CT) 11.6 mL/dL (15.0-23.0); O2Hb 95.6 % (92.0-98.0); PCO2 32.1 mmHg (35.0-45.0); PO2 97.2 mmHg (80.0-100.0); sO2 96.6 % (92.0-98.0); tCO2 15.3 mmol/L (24.0-30.0)
[2016-10-11 12:23] LABS: STICK SITE R.RADIAL; pH 7.266 (7.360-7.450)
[2016-10-11 13:22] LABS: ALBUMIN 2.2 g/dL (3.4-5.0); CALCIUM 8.4 mg/dL (8.5-10.1); CREATININE 6.8 mg/dL (0.7-1.3); MAGNESIUM 2.2 mg/dL (1.8-2.4); PHOSPHORUS 6.5 mg/dL (2.5-4.9); POTASSIUM 3.8 mmol/L (3.5-5.1)
[2016-10-11 18:19] LABS: ALBUMIN 2.3 g/dL (3.4-5.0); CALCIUM 8.9 mg/dL (8.5-10.1); CREATININE 6.7 mg/dL (0.7-1.3); MAGNESIUM 2.2 mg/dL (1.8-2.4); PHOSPHORUS 4.8 mg/dL (2.5-4.9); POTASSIUM 3.3 mmol/L (3.5-5.1)
[2016-10-12] VITALS (27 sets, daily range): BP systolic 106–213; BP diastolic 57–93
[2016-10-12 02:10] LABS: GLYCOHEMOGLOBIN (HGB A1C) 11.1 % (4.8-5.6)
[2016-10-12 04:29] LABS: HEMATOCRIT 26.9 % (42.0-52.0); HEMOGLOBIN 9.3 gm/dL (14.0-18.0); MCH 26.2 pg (26.0-34.0); MCHC 34.7 g/dL (28.0-37.0); PLATELET COUNT 259 thou/uL (150-400); RBC 3.55 mil/uL (4.50-6.00); RDW 15.4 % (10.5-14.5); WBC 11.5 thou/uL (4.0-11.0)
[2016-10-12 04:37] LABS: ABG SAMPLE TYPE ARTERIAL; BE(vivo) -3.9 mmol/L (-2 to +3); HCO3 21.6 mmol/L (22.0-26.0); LACTATE 2.13 mmol/L (0.5-2.0); O2(CT) 13.1 mL/dL (15.0-23.0); O2Hb 95.4 % (92.0-98.0); PCO2 40.9 mmHg (35.0-45.0); PO2 84.2 mmHg (80.0-100.0); sO2 95.8 % (92.0-98.0); tCO2 22.8 mmol/L (24.0-30.0)
[2016-10-12 04:37] LABS: MCV 75.7 fL (80.0-100.0)
[2016-10-12 04:38] LABS: STICK SITE L.RADIAL
[2016-10-12 04:38] LABS: MANUAL DIFF YES
[2016-10-12 04:41] LABS: ALBUMIN 2.3 g/dL (3.4-5.0); CALCIUM 8.8 mg/dL (8.5-10.1); CREATININE 6.5 mg/dL (0.7-1.3); MAGNESIUM 2.1 mg/dL (1.8-2.4); TOTAL BILIRUBIN 0.3 mg/dL (<0.1-1.0); TOTAL PROTEIN 6.5 g/dL (6.4-8.2)
[2016-10-12 05:51] LABS: ABSOLUTE NEUTROPHILS 10.4 thou/uL (1.4-8.2); METAMYELOCYTES 1 %; TOTAL CELL COUNT 100
[2016-10-12 12:25] LABS: CALCIUM 8.6 mg/dL (8.5-10.1); POTASSIUM 3.4 mmol/L (3.5-5.1)
[2016-10-13 04:05] VITALS: BP 164/87
[2016-10-13 06:28] LABS: ALBUMIN 2.1 g/dL (3.4-5.0); CALCIUM 8.4 mg/dL (8.5-10.1); CREATININE 5.2 mg/dL (0.7-1.3); POTASSIUM 3.4 mmol/L (3.5-5.1); TOTAL BILIRUBIN 0.2 mg/dL (<0.1-1.0); TOTAL PROTEIN 6.4 g/dL (6.4-8.2)
[2016-10-13 07:35] VITALS: BP 189/101
[2016-10-13 12:00] VITALS: BP 167/93
[2016-10-13 16:00] VITALS: BP 180/98
[2016-10-13 20:00] VITALS: BP 169/93
[2016-10-14 04:00] VITALS: BP 155/72
[2016-10-14 04:30] LABS: ALBUMIN 2.2 g/dL (3.4-5.0); PHOSPHORUS 3.2 mg/dL (2.5-4.9); POTASSIUM 3.6 mmol/L (3.5-5.1)
[2016-10-14 04:32] LABS: CREATININE 4.2 mg/dL (0.7-1.3)
[2016-10-14 08:00] VITALS: BP 165/85
[2016-10-14 10:20] LABS: HEMATOCRIT 28.1 % (42.0-52.0); HEMOGLOBIN 9.5 gm/dL (14.0-18.0); MCH 26.2 pg (26.0-34.0); MCHC 33.9 g/dL (28.0-37.0); MCV 77.2 fL (80.0-100.0); RBC 3.64 mil/uL (4.50-6.00); RDW 15.8 % (10.5-14.5)
[2016-10-14 12:00] VITALS: BP 158/98
[2016-10-14 16:00] VITALS: BP 149/87
[2016-10-14 19:18] VITALS: BP 151/85
[2016-10-15 04:23] VITALS: BP 173/94
[2016-10-15 06:16] LABS: ALBUMIN 2.2 g/dL (3.4-5.0); CALCIUM 8.8 mg/dL (8.5-10.1); CREATININE 3.6 mg/dL (0.7-1.3); POTASSIUM 3.7 mmol/L (3.5-5.1)
[2016-10-15 08:06] VITALS: BP 180/87
[2016-10-15 11:23] VITALS: BP 150/83
[2016-10-15 15:30] VITALS: BP 134/77
[2016-10-15 20:00] VITALS: BP 167/92
[2016-10-16 04:00] VITALS: BP 194/105
[2016-10-16 06:53] LABS: HEMOGLOBIN 9.3 gm/dL (14.0-18.0); MCH 25.8 pg (26.0-34.0); MCHC 33.2 g/dL (28.0-37.0); MCV 77.8 fL (80.0-100.0); RBC 3.6 mil/uL (4.50-6.00)
[2016-10-16 07:11] LABS: ALBUMIN 2.2 g/dL (3.4-5.0); CALCIUM 8.6 mg/dL (8.5-10.1); PHOSPHORUS 3.4 mg/dL (2.5-4.9); POTASSIUM 3.8 mmol/L (3.5-5.1)
[2016-10-16 08:21] VITALS: BP 188/82
[2016-10-16 11:23] VITALS: BP 145/96
[2016-10-16 16:29] VITALS: BP 162/80
[2016-10-16 19:20] VITALS: BP 140/74
[2016-10-17 03:30] VITALS: BP 205/97
[2016-10-17 06:36] LABS: HEMATOCRIT 27.2 % (42.0-52.0); MCH 25.8 pg (26.0-34.0); MCHC 33.1 g/dL (28.0-37.0); MCV 78.1 fL (80.0-100.0); RBC 3.48 mil/uL (4.50-6.00); WBC 4.7 thou/uL (4.0-11.0)
[2016-10-17 06:53] LABS: ALBUMIN 2.2 g/dL (3.4-5.0); ALKALINE PHOSPHATASE 231 U/L (46-116); DIRECT BILIRUBIN < 0.1 mg/dL (<0.1-0.3); SGOT 59 U/L (15-37); SGPT 33 U/L (30-65); TOTAL BILIRUBIN 0.2 mg/dL (<0.1-1.0); TOTAL PROTEIN 6.2 g/dL (6.4-8.2)
[2016-10-17 06:54] LABS: ALBUMIN 2.3 g/dL (3.4-5.0); CALCIUM 8.3 mg/dL (8.5-10.1); CREATININE 2.8 mg/dL (0.7-1.3); PHOSPHORUS 3.8 mg/dL (2.5-4.9); POTASSIUM 4.7 mmol/L (3.5-5.1)
[2016-10-17 08:46] VITALS: BP 168/78
[2016-10-17 13:42] VITALS: BP 151/88
[2016-10-17 15:49] VITALS: BP 146/74
[2016-10-17 19:55] VITALS: BP 135/79
[2016-10-18 03:30] VITALS: BP 181/96
[2016-10-18 06:00] LABS: HEMATOCRIT 27.9 % (42.0-52.0); HEMOGLOBIN 9.3 gm/dL (14.0-18.0); MCHC 33.3 g/dL (28.0-37.0); RBC 3.57 mil/uL (4.50-6.00); RDW 15.2 % (10.5-14.5); WBC 5.9 thou/uL (4.0-11.0)
[2016-10-18 06:14] LABS: ALBUMIN 2.5 g/dL (3.4-5.0); ALKALINE PHOSPHATASE 280 U/L (46-116); DIRECT BILIRUBIN < 0.1 mg/dL (<0.1-0.3); SGOT 72 U/L (15-37); SGPT 44 U/L (30-65); TOTAL BILIRUBIN 0.2 mg/dL (<0.1-1.0); TRIGLYCERIDE 98 mg/dL (<150)
[2016-10-18 06:14] LABS: ALBUMIN 2.4 g/dL (3.4-5.0); CALCIUM 8.9 mg/dL (8.5-10.1); CREATININE 3.1 mg/dL (0.7-1.3); PHOSPHORUS 3.8 mg/dL (2.5-4.9); POTASSIUM 4.9 mmol/L (3.5-5.1)
[2016-10-18 09:52] VITALS: BP 200/104
[2016-10-18] MEDS ORDERED: HYDRALAZINE 2525 MG PO (09:57)
[2016-10-18] MEDS ORDERED: METOLAZONE 5 MG5 MG PO (09:57)
[2016-10-18] MEDS ORDERED: LOSARTAN POTAS100 MG PO (09:57)
[2016-10-18] MEDS ORDERED: HUMALOG100 UNIT/1 SUBQ (09:57)
[2016-10-18 11:01] VITALS: BP 200/104
== END 2016-10-18 12:55 | disposition home or self-care (01) | DRG 682 ==
LOC: ER 01:46 → ICU 03:06 → EROBS 03:06 → ICU 03:40 → 3N 10-12 23:50
PROVIDERS: Emergency Medicine; Family Medicine; Hospitalist; Internal Medicine; Internal Medicine Gastroenterology; Nurse Practitioner; Nurse Practitioner Adult Health
DX: N17.9 Acute kidney failure, unspecified (principal); G93.41 Metabolic encephalopathy; E13.10 Other specified diabetes mellitus with ketoacidosis without coma; K85.90 Acute pancreatitis without necrosis or infection, unspecified; I12.0 Hypertensive chronic kidney disease with stage 5 chronic kidney disease or end stage renal disease; E87.1 Hypo-osmolality and hyponatremia; Z68.41 Body mass index [BMI] 40.0-44.9, adult; N18.5 Chronic kidney disease, stage 5; E13.22 Other specified diabetes mellitus with diabetic chronic kidney disease; E87.5 Hyperkalemia; E66.9 Obesity, unspecified; G47.33 Obstructive sleep apnea (adult) (pediatric); D63.8 Anemia in other chronic diseases classified elsewhere; I95.9 Hypotension, unspecified; E78.00 Pure hypercholesterolemia, unspecified; K59.00 Constipation, unspecified; E78.5 Hyperlipidemia, unspecified; D50.9 Iron deficiency anemia, unspecified; Z82.49 Family history of ischemic heart disease and other diseases of the circulatory system; Z83.3 Family history of diabetes mellitus; Z86.73 Personal history of transient ischemic attack (TIA), and cerebral infarction without residual deficits; Z90.49 Acquired absence of other specified parts of digestive tract; Z91.013 Allergy to seafood; Z91.041 Radiographic dye allergy status; Z82.3 Family history of stroke; Z91.19 Patient's noncompliance with other medical treatment and regimen; Z83.6 Family history of other diseases of the respiratory system
CPT/HCPCS: 10078; 10096

== ENCOUNTER 2016-11-08 11:29 | Emergency (ER) | payer OTHER ==
[~2016-11-08] VITALS: Ht 175.3 cm; Wt 131.5 kg
[2016-11-08 11:44] LABS: HEMATOCRIT 25.2 % (42.0-52.0); HEMOGLOBIN 8.5 gm/dL (14.0-18.0); MCH 26.7 pg (26.0-34.0); MCHC 33.6 g/dL (28.0-37.0); MCV 79.6 fL (80.0-100.0); PLATELET COUNT 219 thou/uL (150-400); RBC 3.17 mil/uL (4.50-6.00); RDW 15.4 % (10.5-14.5); WBC 6.1 thou/uL (4.0-11.0)
[2016-11-08 11:45] LABS: MANUAL DIFF YES
[2016-11-08 11:52] LABS: ANION GAP 10 mmol/L (7-16); BUN 104 mg/dL (7-18); CALCIUM 8.6 mg/dL (8.5-10.1); CHLORIDE 102 mmol/L (98-107); CO2 27 mmol/L (21-32); GLUCOSE 80 mg/dL (74-106); POTASSIUM 4.1 mmol/L (3.5-5.1); SODIUM 139 mmol/L (136-145)
[2016-11-08 11:56] LABS: ALBUMIN 2.5 g/dL (3.4-5.0); ALKALINE PHOSPHATASE 266 U/L (46-116); SGOT 27 U/L (15-37); SGPT 26 U/L (30-65); TOTAL BILIRUBIN 0.2 mg/dL (<0.1-1.0); TOTAL PROTEIN 6.7 g/dL (6.4-8.2)
[2016-11-08 12:05] LABS: DIRECT BILIRUBIN < 0.1 mg/dL (<0.1-0.3)
[2016-11-08 12:39] LABS: ABSOLUTE NEUTROPHILS 2.9 thou/uL (1.4-8.2); PLATELET ESTIMATE NORMAL; TOTAL CELL COUNT 100
== END 2016-11-08 12:58 | disposition home or self-care (01) ==
LOC: ER 11:29
PROVIDERS: Emergency Medicine
DX: E11.649 Type 2 diabetes mellitus with hypoglycemia without coma (principal); I12.0 Hypertensive chronic kidney disease with stage 5 chronic kidney disease or end stage renal disease; E11.22 Type 2 diabetes mellitus with diabetic chronic kidney disease; N18.5 Chronic kidney disease, stage 5; Z90.49 Acquired absence of other specified parts of digestive tract; Z86.2 Personal history of diseases of the blood and blood-forming organs and certain disorders involving the immune mechanism; Z86.73 Personal history of transient ischemic attack (TIA), and cerebral infarction without residual deficits; Z91.041 Radiographic dye allergy status; Z91.013 Allergy to seafood; Z79.4 Long term (current) use of insulin

== ENCOUNTER 2016-11-13 12:25 | Inpatient (IN) | payer OTHER ==
[~2016-11-13] VITALS: Ht 177.8 cm; Wt 131.1 kg
--- NOTE | ~2016-11-13 | EKG ---
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 : 1975 Requested By: Eddie Colon Order Number: [id number] MD: Tejinder Graff Measurements Intervals [place] Rate: 72 P: 62 VT: 136 QRS: 70 QRSD: 102 T: -27 QT: 377 QTc: 413 Interpretive Statements Sinus rhythm Nonspecific ST and T-wave abnormality Compared to ECG 10/11/2016 03:03:28 Hyperacute T-wave abnormality no longer present Electronically Signed On 11-14-2016 7:41:48 CDT by Tejinder Graff [email or web address] <ELECTRONICALLY SIGNED> By: Tejinder Graff MD, [facility] 11/14/16 0741 1237 1237 Tejinder Graff MD, [facility] /EPI
--- NOTE | ~2016-11-13 | EEG ---
[facility] [place] [address] ELECTROENCEPHALOGRAM Name: JOSEFA DAILY Room #: 218-P [facility] IN M.R.#: [id number] Admission: 11/13/16 Attend Phys: Jakub Olvera MD Discharge: Date of : 75 Report #: [id number] THIS REPORT FOR: //name// CC: Leon Olvera DATE OF SERVICE: 11/15/2016 This patient is being evaluated for altered mental status and the possibility of seizure. EEG was done by placing the electrodes by standard 10-20 system of electrode placement. Both referential and sequential montages were used for recording. Background activity in this patient's EEG is about 10 Hz and 30 microvolts. Significant portion of this EEG was obtained when the patient was asleep and that is associated with bilaterally symmetrical sleep spindle and vertex sharp waves. Photic stimulation was unremarkable. Throughout the record, no active epileptiform activity was noticed. IMPRESSION: This patient's EEG is within normal limit. Thank you very much for this referral. <ELECTRONICALLY SIGNED> By: Bello Wade MD 11/18/16 1246 1718 0038 Bello Wade MD /nt
--- NOTE | ~2016-11-13 | HC ---
[facility] [place] [address] CONSULTATION Name: ABIMBOLAJOSEFA LEE Room #: 218-P ADM IN M.R.#: [id number] Admission: 11/13/16 Attend Phys: Jakub Olvera MD Discharge: Date of : 75 Report #: [id number] THIS REPORT FOR: //name// CC: Leon Olvera DATE OF SERVICE: 11/13/2016 PATIENT IDENTIFICATION: This 41-year-old male has a longstanding history of diabetes mellitus and chronic kidney disease. His baseline creatinine is in the 2 range. He has had repeated [facility] hospitalizations over the last 18 months related to poorly controlled diabetes mellitus and acute kidney injury. His serum creatinine has been elevated as high as 6.8 in the past and subsequently returned to a baseline value of 2.8. The patient reports that he has not been feeling well for several days. He was in fact seen in the emergency room on November 08 at which time, his creatinine was elevated from his previous value in September of 2.8 to 5.0. He presents on the day of admission with a creatinine elevated at 6.1 and a glucose of greater than 600. He is poorly communicative and not able to provide much history. PAST MEDICAL HISTORY: Otherwise remarkable for longstanding diabetes mellitus and hypertension. He has undergone previous laparoscopic cholecystectomy. He has a history of pancreatitis. He has a history of prior TIA. MEDICATIONS: On admission include aspirin 81 mg daily, hydralazine 25 mg t.i.d., torsemide 40 mg daily, metolazone 5 mg daily, amlodipine 10 mg daily, gabapentin 300 mg at bedtime, carvedilol 25 mg p.o. b.i.d., Humalog sliding scale insulin, losartan 100 mg daily, Levemir 40 mg daily. ALLERGIES: Reported to IODINE AND SHELL FISH. FAMILY HISTORY: Negative for renal disease. PERSONAL AND SOCIAL HISTORY: The patient does not smoke, use alcohol or have any history of substance abuse. REVIEW OF SYSTEMS: Remarkable for intermittent pedal edema. He denies cellulitis, loss of consciousness, vertigo. He denies shortness of breath, productive cough, hemoptysis, chest pain, palpitations, nausea, vomiting, diarrhea or constipation. PHYSICAL EXAMINATION: GENERAL: Reveals a well-developed, well-nourished male appearing his stated age, in no acute distress. VITAL SIGNS: Blood pressure 114/65, temperature 97.9, pulse 78, respirations [address] [address] CONSULTATION Name: JOSEFA DAILY Room #: 218-P [facility] IN ..#: [id number] Admission: 11/13/16 Attend Phys: Jakub Olvera MD Discharge: Date of : 75 Report #: [id number]. SKIN: Warm and dry without rash or erythema. There is no gross clubbing, cyanosis, edema or adenopathy. HEENT: The head is normocephalic and atraumatic. The sclerae are white. Conjunctivae are not injected. The pharynx is benign. NECK: Supple. LUNGS: Swenson reveal scattered rhonchi without evidence of consolidation. CARDIOVASCULAR: Reveals a regular rate and rhythm without rub. ABDOMEN: Soft and nontender, without palpable mass or organomegaly. NEUROLOGIC: Reveals the patient to be alert and cooperative with a nonfocal exam. LABORATORY STUDIES: Available at the time of consultation include sodium 135, potassium 4.1, chloride 98, CO2 of 27, BUN 116, creatinine 6.1, glucose 208. White blood cell count 5300, hemoglobin 9.5, hematocrit 28.0, platelet count 268,000. Urinalysis reveals 2+ protein, 1+ blood. ASSESSMENT: 1. Acute kidney injury secondary to dehydration. He has had poor glucose control and I am certain has had osmotic diuresis related to his hyperglycemia as well as ongoing combination diuretic therapy. We will administer isotonic fluids and discontinue the diuretics at this time. I expect his creatinine value to improve as it has in the past and hopefully it will return to his previous baseline value in the 2 range. 2. Poorly controlled diabetes mellitus. 3. Diet and medication noncompliance. 4. History of prior transient ischemic attack. PLAN: The patient needs vigorous counseling with regard to proper medical management as these recurrent episodes will ultimately lead to either his demise or his need for dialysis therapy. Please see orders. <ELECTRONICALLY SIGNED> By: Diallo Pruitt MD 11/17/16 0747 1433 2212 Diallo Pruitt MD /nt
[2016-11-13 12:27] VITALS: BP 114/65
[2016-11-13] MEDS ORDERED: HYDRALAZINE 2525 MG PO (12:52)
[2016-11-13] MEDS ORDERED: TORSEMIDE20 MG PO (12:53)
[2016-11-13] MEDS ORDERED: METOLAZONE 5 MG5 MG PO (12:54)
[2016-11-13] MEDS ORDERED: NORVASC10 MG PO (12:55)
[2016-11-13] MEDS ORDERED: NEURONTIN 300300 M1 PO (12:56)
[2016-11-13 12:58] LABS: HEMOGLOBIN 9.5 gm/dL (14.0-18.0); MANUAL DIFF YES; MCH 26.6 pg (26.0-34.0); MCV 78.5 fL (80.0-100.0); PLATELET COUNT 268 thou/uL (150-400); RBC 3.57 mil/uL (4.50-6.00); RDW 15.2 % (10.5-14.5); WBC 5.3 thou/uL (4.0-11.0)
[2016-11-13 13:03] LABS: ANION GAP 10 mmol/L (7-16); BUN 116 mg/dL (7-18); CALCIUM 9.1 mg/dL (8.5-10.1); CHLORIDE 98 mmol/L (98-107); CO2 27 mmol/L (21-32); CREATININE 6.1 mg/dL (0.7-1.3); GLUCOSE 208 mg/dL (74-106); POTASSIUM 4.1 mmol/L (3.5-5.1); SODIUM 135 mmol/L (136-145)
[2016-11-13 13:13] LABS: ALBUMIN 2.7 g/dL (3.4-5.0); ALKALINE PHOSPHATASE 270 U/L (46-116); MAGNESIUM 2.1 mg/dL (1.8-2.4); NT-PRO BRAIN NAT PEPTIDE 1145 pg/mL (<300); SGOT 24 U/L (15-37); SGPT 23 U/L (30-65); TOTAL BILIRUBIN 0.3 mg/dL (<0.1-1.0); TOTAL PROTEIN 7.2 g/dL (6.4-8.2); TROPONIN-I < 0.04 ng/mL (<0.04-0.07)
[2016-11-13 13:40] LABS: ABSOLUTE NEUTROPHILS 2.8 thou/uL (1.4-8.2); PLATELET ESTIMATE NORMAL; TOTAL CELL COUNT 100
[2016-11-13 14:57] VITALS: BP 161/87
[2016-11-13 15:40] VITALS: BP 152/82
[2016-11-13 20:05] VITALS: BP 109/52
[2016-11-13 23:44] VITALS: BP 157/81
[2016-11-14 03:46] LABS: ALBUMIN 2.3 g/dL (3.4-5.0); CALCIUM 8.5 mg/dL (8.5-10.1); CREATININE 5.7 mg/dL (0.7-1.3); PHOSPHORUS 5.1 mg/dL (2.5-4.9); POTASSIUM 3.6 mmol/L (3.5-5.1)
[2016-11-14 04:18] LABS: ABSOLUTE NEUTROPHILS 2.5 thou/uL (1.4-8.2); BASOPHILS 1.1 % (0.0-2.0); EOSINOPHILS 6.1 % (0.0-3.0); HEMATOCRIT 25.5 % (42.0-52.0); HEMOGLOBIN 8.6 gm/dL (14.0-18.0); LYMPHOCYTES 32.4 % (24.0-44.0); MCH 26.5 pg (26.0-34.0); MCHC 33.8 g/dL (28.0-37.0); MCV 78.7 fL (80.0-100.0); MONOCYTES 11.8 % (1.0-8.0); PLATELET COUNT 234 thou/uL (150-400); POLYS 48.6 % (36.0-66.0); RBC 3.25 mil/uL (4.50-6.00); RDW 15.4 % (10.5-14.5); WBC 5.1 thou/uL (4.0-11.0)
[2016-11-14 04:21] LABS: MANUAL DIFF NO
[2016-11-14 04:32] VITALS: BP 162/95
[2016-11-14 05:10] LABS: GLYCOHEMOGLOBIN (HGB A1C) 9.8 % (4.8-5.6)
[2016-11-14 08:24] LABS: URINE BILIRUBIN NEGATIVE (Negative); URINE BLOOD 1+ (Negative); URINE COLOR YELLOW; URINE GLUCOSE-RANDOM* NEGATIVE (Negative); URINE KETONES NEGATIVE (Negative); URINE NITRITE NEGATIVE (Negative); URINE PROTEIN (DIPSTICK) 2+ (Negative); URINE UROBILINOGEN 0.2 E.U./dl (0.2-1.0)
[2016-11-14 09:00] LABS: CASTS None Seen /LPF (None Seen); CRYSTALS None Seen /LPF (None Seen); SQUAMOUS 4-10 Moderate /LPF (0-3)
[2016-11-14 09:01] LABS: URINE RBC 0-2 Rare /HPF (0-2); URINE WBC None Seen /HPF (0-5)
[2016-11-14 09:03] LABS: BACTERIA 1-9 Few /HPF (None Seen)
[2016-11-14 09:25] VITALS: BP 163/91
[2016-11-14 11:46] VITALS: BP 164/83
[2016-11-14 14:12] LABS: URINE CREATININE-RANDOM* 73.2 mg/dL (Not Estab.)
[2016-11-14 16:03] VITALS: BP 121/62
[2016-11-14 21:12] VITALS: BP 152/70
[2016-11-15] VITALS (7 sets, daily range): BP systolic 142–188; BP diastolic 70–95
[2016-11-15 04:00] LABS: ALBUMIN 2.4 g/dL (3.4-5.0); CALCIUM 8.3 mg/dL (8.5-10.1); CREATININE 5.2 mg/dL (0.7-1.3); PHOSPHORUS 4.6 mg/dL (2.5-4.9); POTASSIUM 4.1 mmol/L (3.5-5.1)
[2016-11-15 04:20] LABS: HEMATOCRIT 25.3 % (42.0-52.0); HEMOGLOBIN 8.6 gm/dL (14.0-18.0); MCH 27.1 pg (26.0-34.0); MCHC 34.1 g/dL (28.0-37.0); MCV 79.4 fL (80.0-100.0); RBC 3.19 mil/uL (4.50-6.00); RDW 15.4 % (10.5-14.5); WBC 4.5 thou/uL (4.0-11.0)
[2016-11-15 06:08] LABS: GLYCOHEMOGLOBIN (HGB A1C) 10.3 % (4.8-5.6)
[2016-11-15 10:10] LABS: URINE PROTEIN-RANDOM* 239.2 mg/dL (Not Estab.)
[2016-11-16] VITALS (8 sets, daily range): BP systolic 111–193; BP diastolic 49–96
[2016-11-16 11:33] LABS: CALCIUM 8.6 mg/dL (8.5-10.1); CREATININE 4.4 mg/dL (0.7-1.3); POTASSIUM 4.4 mmol/L (3.5-5.1)
[2016-11-17 00:15] VITALS: BP 145/77
[2016-11-17 02:48] LABS: HEMATOCRIT 24.4 % (42.0-52.0); HEMOGLOBIN 8.1 gm/dL (14.0-18.0); MCH 26.6 pg (26.0-34.0); MCHC 33.2 g/dL (28.0-37.0); MCV 79.9 fL (80.0-100.0); RBC 3.06 mil/uL (4.50-6.00); RDW 15.2 % (10.5-14.5); WBC 5.3 thou/uL (4.0-11.0)
[2016-11-17 03:07] LABS: ALBUMIN 2.3 g/dL (3.4-5.0); CALCIUM 8.6 mg/dL (8.5-10.1); CREATININE 4.7 mg/dL (0.7-1.3); PHOSPHORUS 4.2 mg/dL (2.5-4.9); POTASSIUM 4.3 mmol/L (3.5-5.1)
[2016-11-17 03:13] VITALS: BP 132/67
[2016-11-17 07:48] VITALS: BP 157/90
[2016-11-17 12:11] VITALS: BP 144/76
[2016-11-17 16:11] VITALS: BP 142/68
[2016-11-17 19:14] VITALS: BP 150/72
[2016-11-18 03:22] LABS: CALCIUM 8.6 mg/dL (8.5-10.1); CREATININE 4.8 mg/dL (0.7-1.3)
[2016-11-18 03:55] VITALS: BP 139/68
[2016-11-18 08:45] VITALS: BP 162/83
[2016-11-18 11:00] VITALS: BP 150/74
[2016-11-18 15:55] VITALS: BP 151/78
[2016-11-18 20:21] VITALS: BP 146/76
[2016-11-19 03:42] LABS: HEMATOCRIT 23.9 % (42.0-52.0); HEMOGLOBIN 7.9 gm/dL (14.0-18.0); MCH 26.7 pg (26.0-34.0); MCHC 33.1 g/dL (28.0-37.0); MCV 80.7 fL (80.0-100.0); RBC 2.96 mil/uL (4.50-6.00); RDW 15.8 % (10.5-14.5)
[2016-11-19 03:54] LABS: ALBUMIN 2.2 g/dL (3.4-5.0); CALCIUM 8.3 mg/dL (8.5-10.1); CREATININE 4.6 mg/dL (0.7-1.3); PHOSPHORUS 4.9 mg/dL (2.5-4.9); POTASSIUM 4.5 mmol/L (3.5-5.1)
[2016-11-19 04:26] VITALS: BP 152/83
[2016-11-19 08:15] VITALS: BP 158/84
[2016-11-19 09:51] LABS: % SATURATION 18 % (20-39); IRON 38 ug/dL (65-175); TIBC 217 ug/dL (250-450); UIBC 179 ug/dL
[2016-11-19 11:50] VITALS: BP 151/72
[2016-11-19 16:30] VITALS: BP 123/66
[2016-11-19 19:31] VITALS: BP 136/72
[2016-11-20 03:04] VITALS: BP 141/66
[2016-11-20 03:53] LABS: CALCIUM 8.6 mg/dL (8.5-10.1); CREATININE 4.6 mg/dL (0.7-1.3); POTASSIUM 4.7 mmol/L (3.5-5.1)
[2016-11-20 07:45] VITALS: BP 154/80
[2016-11-20 11:30] VITALS: BP 146/79
[2016-11-20 20:15] VITALS: BP 150/76
[2016-11-21 04:12] VITALS: BP 150/57
[2016-11-21 04:21] LABS: ALBUMIN 2.3 g/dL (3.4-5.0); CALCIUM 8.4 mg/dL (8.5-10.1); CREATININE 4.7 mg/dL (0.7-1.3); PHOSPHORUS 5.2 mg/dL (2.5-4.9); POTASSIUM 4.7 mmol/L (3.5-5.1)
[2016-11-21 07:59] VITALS: BP 170/82
[2016-11-21] MEDS ORDERED: AMLODIPINE BESYL5 M1 PO (10:00)
[2016-11-21] MEDS ORDERED: TORSEMIDE20 MG PO (10:01)
[2016-11-21] MEDS ORDERED: LANTUS100 UNIT/M SUBQ (10:02)
[2016-11-21] MEDS ORDERED: NORVASC10 MG PO (10:16)
[2016-11-21 11:02] VITALS: BP 170/82
== END 2016-11-21 12:01 | disposition home or self-care (01) | DRG 682 ==
LOC: ER 12:25 → EROBS 13:41 → 2N 13:41
PROVIDERS: Emergency Medicine; Family Medicine; Hospitalist; Internal Medicine Nephrology
DX: N17.9 Acute kidney failure, unspecified (principal); G93.41 Metabolic encephalopathy; I13.0 Hypertensive heart and chronic kidney disease with heart failure and stage 1 through stage 4 chronic kidney disease, or unspecified chronic kidney disease; Z68.41 Body mass index [BMI] 40.0-44.9, adult; E86.0 Dehydration; D64.9 Anemia, unspecified; I95.9 Hypotension, unspecified; E11.22 Type 2 diabetes mellitus with diabetic chronic kidney disease; G47.33 Obstructive sleep apnea (adult) (pediatric); E66.9 Obesity, unspecified; E11.42 Type 2 diabetes mellitus with diabetic polyneuropathy; F32.9 Major depressive disorder, single episode, unspecified; E11.649 Type 2 diabetes mellitus with hypoglycemia without coma; N18.4 Chronic kidney disease, stage 4 (severe); E11.65 Type 2 diabetes mellitus with hyperglycemia; Z91.14 Patient's other noncompliance with medication regimen; Z90.49 Acquired absence of other specified parts of digestive tract; Z86.73 Personal history of transient ischemic attack (TIA), and cerebral infarction without residual deficits; Z87.01 Personal history of pneumonia (recurrent); Z79.4 Long term (current) use of insulin; Z79.899 Other long term (current) drug therapy; Z91.041 Radiographic dye allergy status; Z91.013 Allergy to seafood; Z82.5 Family history of asthma and other chronic lower respiratory diseases; Z84.1 Family history of disorders of kidney and ureter; Z83.3 Family history of diabetes mellitus; Z82.49 Family history of ischemic heart disease and other diseases of the circulatory system
CPT/HCPCS: 10081

== ENCOUNTER 2016-12-03 14:11 | Emergency (ER) | payer OTHER ==
[~2016-12-03] VITALS: Ht 177.8 cm; Wt 127.0 kg
[~2016-12-03 14:11] MED LIST changes: +NORVASC10 MG PO
[2016-12-03 14:53] LABS: ABSOLUTE NEUTROPHILS 4.5 thou/uL (1.4-8.2); BASOPHILS 1.3 % (0.0-2.0); EOSINOPHILS 5.6 % (0.0-3.0); HEMATOCRIT 31.9 % (42.0-52.0); HEMOGLOBIN 10.6 gm/dL (14.0-18.0); LYMPHOCYTES 13.3 % (24.0-44.0); MANUAL DIFF NO; MCH 26.7 pg (26.0-34.0); MCHC 33.2 g/dL (28.0-37.0); MCV 80.3 fL (80.0-100.0); MONOCYTES 7.3 % (1.0-8.0); PLATELET COUNT 246 thou/uL (150-400); POLYS 72.5 % (36.0-66.0); RBC 3.98 mil/uL (4.50-6.00); WBC 6.3 thou/uL (4.0-11.0)
[2016-12-03 15:09] LABS: ANION GAP 9 mmol/L (7-16); BUN 78 mg/dL (7-18); CALCIUM 8.8 mg/dL (8.5-10.1); CHLORIDE 106 mmol/L (98-107); CO2 23 mmol/L (21-32); CREATININE 4.4 mg/dL (0.7-1.3); GLUCOSE 437 mg/dL (74-106); POTASSIUM 4.1 mmol/L (3.5-5.1); SODIUM 138 mmol/L (136-145)
[2016-12-03 15:14] LABS: ALBUMIN 2.6 g/dL (3.4-5.0); ALKALINE PHOSPHATASE 259 U/L (46-116); DIRECT BILIRUBIN < 0.1 mg/dL (<0.1-0.3); SGOT 22 U/L (15-37); SGPT 20 U/L (30-65); TOTAL BILIRUBIN 0.4 mg/dL (<0.1-1.0); TOTAL PROTEIN 6.6 g/dL (6.4-8.2)
[2016-12-03] MEDS ORDERED: PHENERGAN 25 MG25 M1 PO (15:44)
[2016-12-03] MEDS ORDERED: ZOFRAN ODT4 MG PO (15:44)
[2016-12-03] MEDS ORDERED: PROMS25 WY RECTAL (15:44)
== END 2016-12-03 16:25 | disposition home or self-care (01) ==
LOC: ER 14:11
PROVIDERS: Emergency Medicine
DX: K52.9 Noninfective gastroenteritis and colitis, unspecified (principal); E66.9 Obesity, unspecified; I12.0 Hypertensive chronic kidney disease with stage 5 chronic kidney disease or end stage renal disease; E11.22 Type 2 diabetes mellitus with diabetic chronic kidney disease; N18.5 Chronic kidney disease, stage 5; Z86.2 Personal history of diseases of the blood and blood-forming organs and certain disorders involving the immune mechanism; Z86.73 Personal history of transient ischemic attack (TIA), and cerebral infarction without residual deficits; Z79.4 Long term (current) use of insulin; Z68.41 Body mass index [BMI] 40.0-44.9, adult; Z91.041 Radiographic dye allergy status; Z91.013 Allergy to seafood

== ENCOUNTER 2016-12-17 10:47 | Emergency (ER) | payer OTHER ==
[~2016-12-17] VITALS: Ht 177.8 cm; Wt 127.0 kg
--- NOTE | ~2016-12-17 | EKG ---
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
[~2016-12-17 10:47] MED LIST changes: +PHENERGAN 25 MG25 M1 PO; +PROMS25 WY RECTAL; +ZOFRAN ODT4 MG PO
[2016-12-17 12:04] LABS: HEMATOCRIT 30.3 % (42.0-52.0); MANUAL DIFF YES; MCH 26.8 pg (26.0-34.0); MCHC 32.9 g/dL (28.0-37.0); MCV 81.5 fL (80.0-100.0); PLATELET COUNT 361 thou/uL (150-400); RBC 3.72 mil/uL (4.50-6.00); RDW 15.8 % (10.5-14.5); WBC 5.5 thou/uL (4.0-11.0)
[2016-12-17 12:09] LABS: CALCIUM 8.3 mg/dL (8.5-10.1); CREATININE 4.8 mg/dL (0.7-1.3); POTASSIUM 3.5 mmol/L (3.5-5.1)
[2016-12-17 12:25] LABS: ABSOLUTE NEUTROPHILS 3.1 thou/uL (1.4-8.2); PLATELET ESTIMATE NORMAL; TOTAL CELL COUNT 100
== END 2016-12-17 13:04 | disposition home or self-care (01) ==
LOC: ER 10:47
PROVIDERS: Emergency Medicine
DX: I12.0 Hypertensive chronic kidney disease with stage 5 chronic kidney disease or end stage renal disease (principal); E11.22 Type 2 diabetes mellitus with diabetic chronic kidney disease; N18.5 Chronic kidney disease, stage 5; R51 Headache; Z90.49 Acquired absence of other specified parts of digestive tract; Z86.2 Personal history of diseases of the blood and blood-forming organs and certain disorders involving the immune mechanism; Z86.73 Personal history of transient ischemic attack (TIA), and cerebral infarction without residual deficits; Z91.041 Radiographic dye allergy status; Z91.013 Allergy to seafood; Z79.4 Long term (current) use of insulin

== ENCOUNTER 2017-01-01 05:45 | Inpatient (IN) | payer OTHER ==
[~2017-01-01] VITALS: Ht 177.8 cm; Wt 128.4 kg
[2017-01-01 08:38] LABS: HEMATOCRIT 35.4 % (42.0-52.0); HEMOGLOBIN 11.4 gm/dL (14.0-18.0); MANUAL DIFF YES; MCH 26.3 pg (26.0-34.0); MCHC 32.3 % (28.0-37.0); MCV 81.6 fL (80.0-100.0); PLATELET COUNT 241 thou/uL (150-400); RBC 4.33 mil/uL (4.50-6.00); RDW 14.2 % (10.5-14.5); WBC 4.8 thou/uL (4.0-11.0)
[2017-01-01 08:41] LABS: ABSOLUTE NEUTROPHILS 2.4 thou/uL (1.4-8.2); TOTAL CELL COUNT 100
[2017-01-01 08:43] LABS: ANISOCYTOSIS SLIGHT
[2017-01-01 09:45] VITALS: BP 237/108
[2017-01-01 10:15] LABS: APTT 27.7 Seconds (24.5-32.8); SODIUM 142 mmol/L (136-145)
[2017-01-01 10:16] LABS: ALBUMIN 2.8 g/dL (3.4-5.0); ALKALINE PHOSPHATASE 200 U/L (46-116); ANION GAP 12 mmol/L (7-16); BUN 102 mg/dL (7-18); CHLORIDE 104 mmol/L (98-107); CO2 26 mmol/L (21-32); CREATININE 6.2 mg/dL (0.7-1.3); GLUCOSE 231 mg/dL (74-106); SGOT 24 U/L (15-37); SGPT 21 U/L (30-65); TOTAL BILIRUBIN 0.3 mg/dL (<0.1-1.0); TOTAL PROTEIN 7.4 g/dL (6.4-8.2)
[2017-01-01 10:17] LABS: TROPONIN-I < 0.04 ng/mL (<0.04-0.07)
[2017-01-01 10:50] LABS: URINE BILIRUBIN NEGATIVE (Negative); URINE BLOOD 1+ (Negative); URINE COLOR YELLOW; URINE GLUCOSE-RANDOM* 1+ (Negative); URINE KETONES NEGATIVE (Negative); URINE NITRITE NEGATIVE (Negative); URINE PROTEIN (DIPSTICK) 3+ (Negative); URINE SPECIFIC GRAVITY 1.015 (1.003-1.035); URINE UROBILINOGEN 0.2 E.U./dl (0.2-1.0)
[2017-01-01 10:54] LABS: AMP/METHAMP Negative (Negative); BARBITURATES Negative (Negative); BENZODIAZEPINES Negative (Negative); COCAINE Negative (Negative); METHADONE Negative (Negative); OPIATES Negative (Negative); PCP Negative (Negative); THC Negative (Negative)
[2017-01-01 11:06] VITALS: BP 165/84
[2017-01-01 11:06] LABS: FINE GRANULAR CASTS 0-3 Few /LPF (None Seen); HYALINE CASTS 0-3 Few /LPF (None Seen); SQUAMOUS 0-3 Few /LPF (0-3)
[2017-01-01 11:07] LABS: CRYSTALS None Seen /LPF (None Seen); URINE RBC 3-10 Few /HPF (0-2); URINE WBC 0-5 Rare /HPF (0-5)
[2017-01-01 11:08] LABS: BACTERIA 1-9 Few /HPF (None Seen)
[2017-01-01 15:05] VITALS: BP 182/94
[2017-01-01 20:00] VITALS: BP 152/81
[2017-01-02 04:00] VITALS: BP 186/89
[2017-01-02 04:12] LABS: HEMATOCRIT 31.9 % (42.0-52.0); HEMOGLOBIN 10.5 gm/dL (14.0-18.0); MCH 26.6 pg (26.0-34.0); MCHC 32.8 g/dL (28.0-37.0); PLATELET COUNT 223 thou/uL (150-400); RBC 3.94 mil/uL (4.50-6.00); RDW 14.2 % (10.5-14.5); WBC 4.3 thou/uL (4.0-11.0)
[2017-01-02 04:14] LABS: MANUAL DIFF YES
[2017-01-02 04:26] LABS: ALBUMIN 2.5 g/dL (3.4-5.0); CALCIUM 8.4 mg/dL (8.5-10.1); CREATININE 6.2 mg/dL (0.7-1.3); MAGNESIUM 1.8 mg/dL (1.8-2.4); POTASSIUM 3.8 mmol/L (3.5-5.1); TOTAL BILIRUBIN 0.3 mg/dL (<0.1-1.0); TOTAL PROTEIN 6.4 g/dL (6.4-8.2)
[2017-01-02 04:54] LABS: ANISOCYTOSIS 1+; ATYPICAL LYMPHS 1 %; TOTAL CELL COUNT 100
[2017-01-02 05:19] LABS: LARGE PLATELETS OCCASIONAL
[2017-01-02 07:34] VITALS: BP 178/91
[2017-01-02 11:08] VITALS: BP 138/80
[2017-01-02 20:30] VITALS: BP 145/83
[2017-01-03 04:04] VITALS: BP 204/100
[2017-01-03 05:38] VITALS: BP 183/78
[2017-01-03 06:27] LABS: HEMATOCRIT 33.2 % (42.0-52.0); HEMOGLOBIN 10.8 gm/dL (14.0-18.0); MCH 26.1 pg (26.0-34.0); MCHC 32.6 g/dL (28.0-37.0); MCV 80.1 fL (80.0-100.0); PLATELET COUNT 225 thou/uL (150-400); RBC 4.14 mil/uL (4.50-6.00); RDW 14.4 % (10.5-14.5); WBC 5.1 thou/uL (4.0-11.0)
[2017-01-03 06:41] LABS: ALBUMIN 2.5 g/dL (3.4-5.0); CALCIUM 8.6 mg/dL (8.5-10.1); CREATININE 5.7 mg/dL (0.7-1.3); PHOSPHORUS 4.5 mg/dL (2.5-4.9); POTASSIUM 4.1 mmol/L (3.5-5.1)
[2017-01-03 06:52] LABS: MANUAL DIFF YES
[2017-01-03 08:00] VITALS: BP 164/85
[2017-01-03 08:08] LABS: ABSOLUTE NEUTROPHILS 2.8 thou/uL (1.4-8.2); PLATELET ESTIMATE NORMAL; TOTAL CELL COUNT 100
[2017-01-03 16:00] VITALS: BP 173/91
[2017-01-03 19:53] VITALS: BP 173/76
[2017-01-03 23:41] VITALS: BP 202/99
[2017-01-04] VITALS (7 sets, daily range): BP systolic 123–206; BP diastolic 63–106
[2017-01-04 03:54] LABS: HEMATOCRIT 31.5 % (42.0-52.0); HEMOGLOBIN 10.4 gm/dL (14.0-18.0); MCH 26.6 pg (26.0-34.0); MCHC 32.9 g/dL (28.0-37.0); MCV 80.8 fL (80.0-100.0); PLATELET COUNT 204 thou/uL (150-400); RDW 14.3 % (10.5-14.5); WBC 4.3 thou/uL (4.0-11.0)
[2017-01-04 03:55] LABS: MANUAL DIFF YES
[2017-01-04 04:18] LABS: ALBUMIN 2.2 g/dL (3.4-5.0); CALCIUM 8.3 mg/dL (8.5-10.1); CREATININE 5.2 mg/dL (0.7-1.3); MAGNESIUM 1.7 mg/dL (1.8-2.4); PHOSPHORUS 4.6 mg/dL (2.5-4.9); POTASSIUM 4.5 mmol/L (3.5-5.1)
[2017-01-04 05:21] LABS: ABSOLUTE NEUTROPHILS 2.1 thou/uL (1.4-8.2); TOTAL CELL COUNT 100
[2017-01-05 04:27] VITALS: BP 198/99
[2017-01-05 05:52] LABS: ALBUMIN 2.4 g/dL (3.4-5.0); CALCIUM 8.8 mg/dL (8.5-10.1); CREATININE 5.3 mg/dL (0.7-1.3); PHOSPHORUS 4.4 mg/dL (2.5-4.9); POTASSIUM 4.4 mmol/L (3.5-5.1)
[2017-01-05 08:00] VITALS: BP 198/106
[2017-01-05 10:00] VITALS: BP 208/95
[2017-01-05 16:00] VITALS: BP 156/76
[2017-01-05 19:56] VITALS: BP 154/74
[2017-01-06 03:04] VITALS: BP 178/90
[2017-01-06 05:45] LABS: ALBUMIN 2.3 g/dL (3.4-5.0); CALCIUM 8.7 mg/dL (8.5-10.1); CREATININE 4.9 mg/dL (0.7-1.3); PHOSPHORUS 4.2 mg/dL (2.5-4.9); POTASSIUM 4.3 mmol/L (3.5-5.1)
[2017-01-06 08:14] VITALS: BP 190/93
[2017-01-06 16:09] VITALS: BP 184/93
[2017-01-06 19:30] VITALS: BP 181/85
[2017-01-07 00:21] VITALS: BP 131/70
[2017-01-07 04:33] VITALS: BP 179/93
[2017-01-07 05:08] LABS: HEMATOCRIT 31.2 % (42.0-52.0); HEMOGLOBIN 10.3 gm/dL (14.0-18.0); MCH 26.7 pg (26.0-34.0); MCV 80.9 fL (80.0-100.0); PLATELET COUNT 205 thou/uL (150-400); RBC 3.86 mil/uL (4.50-6.00); RDW 14.5 % (10.5-14.5); WBC 4.2 thou/uL (4.0-11.0)
[2017-01-07 05:10] LABS: MANUAL DIFF YES
[2017-01-07 05:19] LABS: CALCIUM 8.6 mg/dL (8.5-10.1); CREATININE 5.1 mg/dL (0.7-1.3); POTASSIUM 4.5 mmol/L (3.5-5.1)
[2017-01-07 08:00] VITALS: BP 188/86
[2017-01-07 08:18] LABS: ABSOLUTE NEUTROPHILS 2.3 thou/uL (1.4-8.2); TOTAL CELL COUNT 100
[2017-01-07 08:19] LABS: ANISOCYTOSIS SLIGHT
[2017-01-07 09:41] VITALS: BP 150/76
[2017-01-07] MEDS ORDERED: COZAAR100 MG PO (12:04)
[2017-01-07] MEDS ORDERED: LANTUS100 UNIT/M SUBQ (12:04)
[2017-01-07] MEDS ORDERED: HYDRALAZINE 2525 MG PO (12:11)
[2017-01-07 12:24] VITALS: BP 150/76
== END 2017-01-07 13:37 | disposition home or self-care (01) | DRG 682 ==
LOC: ER 05:45 → EROBS 09:32 → 3N 09:32
PROVIDERS: Emergency Medicine; Hospitalist; Internal Medicine Endocrinology, Diabetes & Metabolism; Internal Medicine Nephrology; Nurse Practitioner
DX: N17.9 Acute kidney failure, unspecified (principal); G93.41 Metabolic encephalopathy; I16.1 Hypertensive emergency; E44.1 Mild protein-calorie malnutrition; Z68.41 Body mass index [BMI] 40.0-44.9, adult; E11.22 Type 2 diabetes mellitus with diabetic chronic kidney disease; G43.909 Migraine, unspecified, not intractable, without status migrainosus; E86.0 Dehydration; E11.65 Type 2 diabetes mellitus with hyperglycemia; D63.8 Anemia in other chronic diseases classified elsewhere; E66.9 Obesity, unspecified; G47.30 Sleep apnea, unspecified; N18.4 Chronic kidney disease, stage 4 (severe); I12.9 Hypertensive chronic kidney disease with stage 1 through stage 4 chronic kidney disease, or unspecified chronic kidney disease; Z91.14 Patient's other noncompliance with medication regimen; Z83.3 Family history of diabetes mellitus; Z82.49 Family history of ischemic heart disease and other diseases of the circulatory system; Z90.49 Acquired absence of other specified parts of digestive tract; Z86.73 Personal history of transient ischemic attack (TIA), and cerebral infarction without residual deficits; Z87.01 Personal history of pneumonia (recurrent); Z79.899 Other long term (current) drug therapy; Z91.041 Radiographic dye allergy status; Z91.013 Allergy to seafood; Z82.5 Family history of asthma and other chronic lower respiratory diseases; Z84.1 Family history of disorders of kidney and ureter; Z87.891 Personal history of nicotine dependence
CPT/HCPCS: 10096

== ENCOUNTER 2017-01-16 09:12 | Inpatient (IN) | payer OTHER ==
[2017-01-16] VITALS (39 sets, daily range): BP systolic 175–246; BP diastolic 65–188
[~2017-01-16] VITALS: Ht 177.8 cm; Wt 136.1 kg
--- NOTE | ~2017-01-16 | 2DMMODE ---
[facility] [address] [place] [address] 2 D/M-MODE ECHOCARDIOGRAM Name: JOSEFA DAILY Room #: 240-P [facility] IN ..#: [id number] Admission: 01/16/17 Attend Phys: Torey Blake, Discharge: Date of : 75 Date of Service: 01/17/17 0908 Report #: [id number] THIS REPORT FOR: //name// APPROVED REPORT Study performed: 01/17/2017 06:59:30 EXAM: Comprehensive 2D, Doppler, and color-flow Echocardiogram Patient Location: Bedside Room #: 240 Other Information Study Quality: Adequate Technically limited study due to inability to position patient, body habitus, uncooperative patient. Indications COPD CVA/TIA Diabetes Chest Pain Hypertension/HDD Echo Enhancing Agent Indication: Rule out Shunt Agent(s) / Amount(s) Used: Agitated Saline 6 cc 2D Dimensions RVDd: 32.61 mm LVEF(%): 64.78 (>50%) IVSd: 17.00 (7-11mm) LVOT Diam: 22.47 (18-24mm) LVDd: 48.77 mm PWd: 17.15 (7-11mm) Ascending Ao: 29.91 (22-36mm) LVDs: 31.46 (25-40mm) Aortic Root: 29.80 mm IVC: 24.00 mm Younger's LVEF: 64.78 % Volumes Left Atrial Volume (Systole) Single Plane 4CH: 36.94 mL Single Plane 2CH: 54.27 mL LA ESV Index: 22.00 mL/m2 Aortic Valve AoV Peak Sandro.: 1.34 m/s AO Peak Gr.: 7.18 mmHg LVOT Max P.97 mmHg [facility] [address] [place] [address] 2 D/M-MODE ECHOCARDIOGRAM Name: JOSEFA DAILY Room #: [facility] IN ..#: [id number] Admission: 01/16/17 Attend Phys: Torey Blake, Discharge: Date of : 75 Date of Service: 01/17/17 0908 Report #: [id number] LVOT Max V: 1.11 m/s BRETT Vmax: 3.30 cm2 Mitral Valve E/A Ratio: 1.1 MV Decel. Time: 217.04 ms MV E Max Sadnro.: 0.95 m/s MV A Sandro.: 0.84 m/s MV PHT: 62.94 ms IVRT: 76.12 ms Pulmonary Valve PV Peak Sandro.: 1.15 m/s PV Peak Gr.: 5.30 mmHg Pulmonary Vein P Vein S: 0.44 m/s P Vein A: 0.13 m/s P Vein D: 0.40 m/s P Vein A Dur.: 79.6 msec P Vein S/D Ratio: 1.10 Tricuspid Valve RAP Estimate: 10.00 mmHg Left Ventricle The left ventricle is normal size. There is normal LV segmental wall motion. Moderate concentric left ventricular hypertrophy. Left ventricular systolic function is normal. LVEF is 65%. The left ventricular diastolic function appears normal. Right Ventricle The right ventricle is normal size. The right ventricular systolic function is normal. Atria The left atrium size is normal. Injection of bubbles documented no interatrial shunt. The right atrium size is normal. Aortic Valve The aortic valve is normal in structure. No aortic regurgitation is present. There is no aortic valvular stenosis. Mitral Valve The mitral valve is normal in structure. There is no mitral valve regurgitation noted. No evidence of mitral valve stenosis. Tricuspid Valve The tricuspid valve is normal in structure. There is no tricuspid [address] [address] 2 D/M-MODE ECHOCARDIOGRAM Name: JOSEFA DAILY Room #: 240-P [facility] IN [facility]#: [id number] Admission: 01/16/17 Attend Phys: Torey Blake, Discharge: Date of : 75 Date of Service: 01/17/17 0908 Report #: [id number] valve regurgitation noted. Pulmonic Valve The pulmonary valve is normal in structure. Trace pulmonic regurgitation. Great Vessels The aortic root is normal in size. IVC is dilated and collapses >50% with inspiration. Pericardium There is no pericardial effusion. <Conclusion> Left ventricular systolic function is normal. There is normal LV segmental wall motion. Moderate concentric left ventricular hypertrophy. LVEF is 65%. Injection of bubbles documented no interatrial shunt. The aortic valve is normal in structure. No aortic regurgitation or stenosis The mitral valve is normal in structure, no mitral valve regurgitation noted. Pulmonary artery pressure could not be reilaibly ascertained. There is no pericardial effusion. <ELECTRONICALLY SIGNED> By: Tejinder Graff MD, FACC 01/17/17907 7 7 Tejinder Graff MD, FACC /INF
--- NOTE | ~2017-01-16 | HC ---
[facility] [place] [address] CONSULTATION Name: ABIMBOLAJOSEFA LEE Room #: 306-P [facility] IN .R.#: [id number] Admission: 01/16/17 Attend Phys: Torey Blake DO Discharge: Date of : 75 Report #: [id number] THIS REPORT FOR: //name// CC: Leon Blake DATE OF SERVICE: 01/20/2017 SUBJECTIVE: One of multiple admissions for this 41-year-old black male with diabetes mellitus out of control, chronic renal disease and other problems. The patient is an extremely poor and evasive historian. He states he developed diabetes in approximately the year 1999. He does not remember his weight at that time. He states that he has never been on a specific diet. He was started on oral therapy, but switched to insulin approximately 1-2 years after diagnosis. Most recently, he has been on what appears to be 30 units of Glargine insulin at bedtime and some scheduled dose and sliding scale of lispro during the day. The patient has not been on any specific diet. He has very limited physical activity. He monitors his sugar with an OneTouch meter but less than once daily and does not remember any of the results. He thinks his last hemoglobin A1c may have been 9 or 10%, but he does not remember when that was done. He does not recall his last comprehensive eye exam. He has had multiple recent admissions for chronic renal failure as well as what appears to be an episode of hyperosmolar coma. The patient has a very significant family history of diabetes, occurring in maternal grandmother, mother, 2 brothers and a number of cousins. During his hospitalization, the patient has been given b.i.d. detemir and prandial lispro with variable glucose control. CURRENT MEDICATIONS: Include diltiazem, torsemide, detemir insulin as mentioned above, carvedilol, spironolactone, losartan, lispro insulin by sliding scale, ondansetron, acetaminophen, labetalol, lorazepam, potassium chloride, and possibly other medication. Otherwise, there is no past or family history available at this time that has not previously been dictated. LABORATORY DATA: From earlier on this admission, sodium 138, potassium 3.8, chloride 106, CO2 of 21, BUN 75, creatinine 5.9. Variable glucoses as high as 940 and as low as 75, AST 17, lipase 428, bilirubin 0.4, calcium 8.3, phosphorus 4.7, magnesium 1.6, SGPT 14, total protein 5.5, albumin 2.0. PHYSICAL EXAMINATION: GENERAL: Well-nourished, well-developed, significantly obese 41-year-old black male who is somewhat lethargic, but able to answer questions and appears to be in no acute distress. VITAL SIGNS: The patient is afebrile, heart rate 72 and regular, blood pressure 180/80, height is reported to be 5 feet 10 inches, weight [address] [place] [address] CONSULTATION Name: JOSEFA DAILY Room #: 306-P [facility] IN M.R.#: [id number] Admission: 01/16/17 Attend Phys: Torey Blake DO Discharge: Date of : 75 Report #: [id number] SKIN: Warm and moist without abnormality. HEENT: PERRL. NECK: Supple, without masses, tenderness or thyromegaly. CHEST: Shows scattered rhonchi. HEART: Regular rhythm without murmurs, rubs or gallops. ABDOMEN: Obese without masses, tenderness or organomegaly. Bowel sounds active. EXTREMITIES: Show mild edema. Peripheral pulses slightly decreased bilaterally. NEUROLOGIC: Grossly intact. ASSESSMENT: 1. Diabetes mellitus, out of control. 2. Significant obesity with severe insulin resistant and hyperinsulinemia. 3. Complications of diabetes including chronic renal failure with significant azotemia. PLAN: 1. I have given the patient initial diet and diabetes education, suggested full outpatient education since those services are not available during this hospitalization. 2. Will evaluate prior control with hemoglobin A1c and check for endogenous insulin secretion with C-peptide to see whether oral therapy and/or noninsulin injections would be of value for glucose control. 3. Will place the patient on a calorie restricted diet to decrease weight, insulin resistance and insulin requirement, will then readjust insulin using Glargine for true 24-hour basal insulin coverage and lispro as needed prandially in an effort to improve glucose control in an attempt to prevent further progression of diabetes complications. Thank you very much for this consultation. I will follow the patient with you and attempt to improve glucose control, which will depend significantly on future patient compliance. <ELECTRONICALLY SIGNED> By: Brady Darby MD 01/21/17 0825 1322 2148 Brady Darby MD /nt
--- NOTE | ~2017-01-16 | HC ---
[facility] [place] [address] CONSULTATION Name: ABIMBOLAJOSEFA LEE Room #: 306-P [facility] IN M.R.#: [id number] Admission: 01/16/17 Attend Phys: Torey Blake DO Discharge: Date of : 75 Report #: [id number] THIS REPORT FOR: //name// CC: Leon Blake REASON FOR CONSULTATION: I was asked to evaluate concerning fever, encephalopathy, and diabetic ketoacidosis. HISTORY OF PRESENT ILLNESS: The patient was a 41-year-old diabetic with a stage 5 kidney disease and hypertension, hospitalized several times in the last year, most recently in November with confusion, nausea, vomiting, . This persisted and he was brought into the emergency room where he was found to have a fever with temperature of 101 degrees, hypertension. He was transferred to the intensive care unit. His blood sugar was over 900. His creatinine was 7. He was placed on oxygen at 2 liters of oxygen per nasal cannula. He has remained lethargic. No further vomiting. He had a large liquid stool. He has now an indwelling Leong catheter with good urine output. There have been no rashes or decubiti. There has been no cough or sputum production. No reported urinary discomfort prior to his admission. He has had no travel. PAST MEDICAL HISTORY: Hypertension, diabetes, chronic kidney disease, cholecystectomy, TIA, anemia, pancreatitis, ataxia, pneumonia, DKA. MEDICATIONS: As noted on his MAR, which were reviewed. His antibiotics currently include vancomycin, Levaquin, and Zosyn. FAMILY HISTORY: Otherwise, noncontributory. SOCIAL HISTORY: Otherwise, noncontributory. PHYSICAL EXAMINATION: VITAL SIGNS: The patient's temperature 101 degrees, heart rate 108, respiratory rate 26, blood pressure 214/104, on 2 liters of oxygen per nasal cannula. GENERAL: He has a right IJ catheter in place. He was obtunded, would awaken to verbal stimuli and would move all 4 extremities. He would not; however, maintain a conversation. He would answer occasional yes or no answer. Was trying to get out of bed and was in restraints from his previous actions. HEENT: Eyes were unremarkable. Pupils reacted to light. Had no oral lesions. NECK: Supple. LUNGS: Clear. HEART: Regular, without murmur. ABDOMEN: Soft and nontender. No hepatosplenomegaly or mass. GENITOURINARY: External genitalia unremarkable with indwelling Leong catheter. EXTREMITIES: Unremarkable. [facility] [address] [place] [address] CONSULTATION Name: JOSEFA DAILY Room #: 306-P [facility] IN [facility]#: [id number] Admission: 01/16/17 Attend Phys: Torey Blake DO Discharge: Date of : 75 Report #: [id number] SKIN: Unremarkable with no decubiti. NEUROLOGICAL: Unremarkable other than his lethargy. LABORATORY STUDIES: Sodium 138, potassium 3.9, bicarbonate 22, creatinine 6.9, blood glucose 900 initially and now 537. Lactate was 2.5. Hemoglobin 10.9, white count 7.5 with 86% segs and platelet count 302,000. Urinalysis, 3+ protein and glucose, otherwise unremarkable. Chest x-ray was clear. Liver function test normal. ABG on presentation showed a pO2 75, pCO2 32 and pH 7.34. IMPRESSION: A 41-year old with diabetes, chronic kidney disease, hypertension, presents now with hypertension urgency along with diabetic ketoacidosis, fever, gastrointestinal upset with nausea, vomiting and now with diarrhea. Source of infection that would cause is fever is yet to be determined. Concerned about enteritis right now. No other evidence of pneumonia, urinary tract infection or skin or soft tissue infection at this point in time. We will also evaluate for pancreatitis. RECOMMENDATIONS: We will continue IV antibiotic adjusted for his renal failure. Continue ICU care. Control his blood sugars and his hypertension. We will adjust his antibiotics as his renal function improves. I have discussed the case with nursing and family. <ELECTRONICALLY SIGNED> By: Eddie Perry MD 01/18/17 1534 33 Eddie Perry MD /nt
--- NOTE | ~2017-01-16 | HC ---
[facility] [place] [address] CONSULTATION Name: JOSEFA DAILY Room #: 306-P [facility] IN M.R.#: [id number] Admission: 01/16/17 Attend Phys: Torey Blake DO Discharge: Date of : 75 Report #: [id number] THIS REPORT FOR: //name// CC: Leon Blake DATE OF SERVICE: 01/22/2017 Glucose continued to improve on insulin readjustment. FBS stable at 148. Highest glucose past day equals 236 at 2200. Total insulin dosage yesterday decreased to less than 50 units. The patient is scheduled for dismissal. We will provide him with insulin doses and medication that have been appropriate for him over the last 48 hours. If he follows dietary restrictions and increased level physical activity these parameters should be successful in keeping glucoses in a much improved condition and he can follow up with his primary care physician. <ELECTRONICALLY SIGNED> By: Brady Darby MD 01/22/17 1319 1254 1307 Brady Darby MD /nt
--- NOTE | ~2017-01-16 | HC ---
[place] [address] CONSULTATION Name: ABIMBOLAJOSEFA ROBBIE Room #: 240-[facility] IN M.R.#: [id number] Admission: 01/16/17 Attend Phys: Torey Blake DO Discharge: Date of : 75 Report #: [id number] THIS REPORT FOR: //name// CC: Leon Blake DATE OF SERVICE: 01/16/2017 HISTORY OF PRESENT ILLNESS: This is a 41-year-old male patient admitted through the emergency room due to mental status changes. The patient apparently had missed 2 of his dosing of his diuretic medications due to nausea, vomiting and became obtunded. He was brought to the emergency room hyperglycemic and confused. The history was obtained from the , son, chart and nursing. Apparently, the patient has not had any chest pain, pressure, tightness or heaviness, but has had significant hypertension for quite some time. States that usually in the last 3-4 years, his blood pressure readings have been in the 150s systolic and 90s diastolic. He does not describe in the past any significant visual changes or secondary hypertensive findings. No chest pain, pressure, tightness or heaviness is described. PAST MEDICAL HISTORY: Significant for: 1. Hypertension. 2. Diabetes mellitus. 3. Chronic kidney disease, end-stage. 4. TIA times 4. 5. History of pancreatitis. 6. Acute respiratory failure due to multiple factors. PAST SURGICAL HISTORY: Significant for laparoscopic cholecystectomy. MEDICATIONS: At home are torsemide, insulin lispro, carvedilol, losartan, Lantus, hydralazine. ALLERGIES: IODINE. SOCIAL HISTORY: The patient is . Does not smoke or consume alcohol. Does not follow a particular exercise regimen or dietary restriction. REVIEW OF SYSTEMS: Except for symptoms previously mentioned and those commensurate with comorbid states, the 10-point review of systems is negative. ELECTROCARDIOGRAM: Sinus rhythm, nonspecific ST-T wave changes. RADIOLOGIC: Noted in the chart. LABORATORY DATA: Reviewed and can be identified in the chart. [address] [address] CONSULTATION Name: ABIMBOLAJOSEFA LEE Room #: [facility] IN M.R.#: [id number] Admission: 01/16/17 Attend Phys: Torey Blake DO Discharge: Date of : 75 Report #: [id number] PHYSICAL EXAMINATION: GENERAL: An obese -Stateless male, resting comfortably and poorly arousable. HEENT: Normocephalic, atraumatic. Pupils are equal, round, reactive to light and accommodation. Extraocular muscles are intact. Sclerae and conjunctivae are anicteric. NECK: JVD is normal. Carotid upstrokes are bilaterally symmetrical. No bruits are heard. No thyromegaly. No lymphadenopathy. LUNGS: Clear to auscultation. No wheezes, rhonchi or crackles. No CVA tenderness. CARDIAC: Demonstrates a regular rhythm. Normal first and second heart sounds. No ventricular or atrial gallops, no rubs noted. No murmurs. No lifts or heaves, PMI normal. ABDOMEN: Soft, nontender, nondistended. Normal bowel sounds. EXTREMITIES: Without cyanosis, clubbing or edema. Distal pulses are intact. DTR symmetrical. NEUROLOGIC: Cranial nerves 2-12 are grossly normal and symmetrical. PSYCHIATRIC: Alert, oriented with normal affect. SKIN: Warm and dry. IMPRESSION: 1. Hypertension crisis. I am going to initiate Cardene drip since the is not affecting him at all. We may need to consider a central agent in view of his kidney function, likely being the aggravating cause to an underlying essential hypertension. We will try and bring his blood pressure down, but not lower than 150 systolic, since we do not want to create any neurologic issues. 2. Diabetes mellitus, slowly coming down, apparently secondary to an infection of some type, which is being treated. 3. End-stage renal disease, as per nephrology and primary care. <ELECTRONICALLY SIGNED> By: Altaf Corado MD 01/17/17 1849 2117 0027 Altaf Corado MD /nt
--- NOTE | ~2017-01-16 | HC ---
[facility] [place] [address] CONSULTATION Name: ABIMBOLAJOSEFA ROBBIE Room #: 240-P [facility] IN M.R.#: [id number] Admission: 01/16/17 Attend Phys: Torey Blake DO Discharge: Date of : 75 Report #: [id number] THIS REPORT FOR: //name// CC: Leon Blake DATE OF SERVICE: 01/16/2017 REASON FOR CONSULTATION: Known chronic kidney disease. REASON FOR PRESENTATION: Nausea, vomiting, abdominal pain, decreased p.o. intake. HISTORY OF PRESENT ILLNESS: The patient is well known to me. He is a 41-year-old with extreme noncompliance. He is known to have obstructive sleep apnea, CKD. He had repeated admissions, was seen in clinic presentation including high blood pressure, out of control blood sugar with episodes of diabetic ketoacidosis. He has decreased p.o. intake in the last few days with emesis. He became more lethargic. His was not able to record his blood sugar at home and he presented to the emergency room where he was found to be in acute diabetic ketoacidosis. He was admitted to the Intensive Care Unit for further evaluation and management. I was consulted to manage his chronic kidney disease. PAST MEDICAL HISTORY: Numerous and extensive includin. Chronic kidney disease with baseline creatinine of around 2. 2. Diabetes mellitus. 3. Hypertension. 4. Repeated episodes of diabetic ketoacidosis. 5. Obstructive sleep apnea. 6. Status post lap cholecystectomy. MEDICATIONS: 1. Torsemide. 2. Losartan. 3. Carvedilol. 4. Hydralazine. 5. Lantus. ALLERGIES: IODINE . FAMILY HISTORY: Significant for diabetes mellitus and hypertension. SOCIAL HISTORY: No drug or alcohol abuse. [facility] [place] [address] CONSULTATION Name: JOSEFA DAILY Room #: 240-P [facility] IN M.R.#: [id number] Admission: 01/16/17 Attend Phys: Torey Blake DO Discharge: Date of : 75 Report #: [id number] REVIEW OF SYSTEMS: Unobtainable from the patient due to the mental status. PHYSICAL EXAMINATION: GENERAL: He is alert, oriented, in no apparent distress. VITAL SIGNS: Blood pressure is 136/74. HEAD AND NECK: Dry mucous membrane. CHEST: Decreased air entry bilaterally. CARDIOVASCULAR: No rub detected. LOWER EXTREMITIES: +2 edema. LABORATORY DATA: Reviewed. Most recent values revealed that his BUN is 91, creatinine 6.7, his anion gap is down to 12. Sodium is 141, potassium is 3.7. Chest x-ray from today was reviewed. ASSESSMENT, IMPRESSION, PLAN: 1. Chronic kidney disease. 2. Diabetic ketoacidosis. 3. Acute kidney injury. 4. Hypertension. 5. Extreme noncompliance with medical care. 6. The patient was admitted to the Intensive Care Unit. 7. Currently, he is being managed with diabetic ketoacidosis protocol. We will slow reintroduce his home blood pressure medications. 8. As for now, continue to hold his ARB. Continue to hold his torsemide. We will continue to follow along. <ELECTRONICALLY SIGNED> By: Santosh Perez MD 01/17/17829 9 7 Santosh Perez MD /nt
--- NOTE | ~2017-01-16 | HC ---
[facility] [place] [address] CONSULTATION Name: ABIMBOLAJOSEFA ROBBIE Room #: 306-P [facility] IN M.R.#: [id number] Admission: 01/16/17 Attend Phys: Torey Blake DO Discharge: Date of : 75 Report #: [id number] THIS REPORT FOR: //name// CC: Leon Blake DATE OF SERVICE: 01/21/2017 Endocrine Progress Note Glucose is lower with readjustment in diet and insulin. The patient is now on Glargine insulin, which is a true basal insulin. He is also receiving oral linagliptin to stimulate endogenous insulin secretion as well as a caloric restricted diet. FBS today 142 (lower). Total insulin dosage after consultation began significantly lower than prior sliding scale and will attempt to continue to reduce insulin dosage while improving glucose control if possible. <ELECTRONICALLY SIGNED> By: Brady Darby MD 01/21/17 1300 0831 0847 Brady Darby MD /nt
[2017-01-16 09:44] LABS: HEMATOCRIT 34.3 % (42.0-52.0); HEMOGLOBIN 10.9 gm/dL (14.0-18.0); MCH 26.6 pg (26.0-34.0); MCHC 31.7 g/dL (28.0-37.0); MCV 83.9 fL (80.0-100.0); PLATELET COUNT 302 thou/uL (150-400); RBC 4.08 mil/uL (4.50-6.00); RDW 14.4 % (10.5-14.5); WBC 7.5 thou/uL (4.0-11.0)
[2017-01-16 09:46] LABS: MANUAL DIFF YES
[2017-01-16 09:54] LABS: CALCIUM 8.7 mg/dL (8.5-10.1); CREATININE 7.3 mg/dL (0.7-1.3); POTASSIUM 5.6 mmol/L (3.5-5.1)
[2017-01-16 09:54] LABS: ABG SAMPLE TYPE VENOUS; BE(vivo) -7.6 mmol/L (-2 to +3); HCO3 16.9 mmol/L (22.0-26.0); O2(CT) 14.7 mL/dL (15.0-23.0); O2Hb VENOUS 91.2 (65.0-85.0); PCO2 VENOUS 30.8 mmHg (41.0-51.0); PO2 VENOUS 65.8 mmHg (35.0-45.0); sO2 VENOUS 92.5 % (65.0-85.0); tCO2 17.8 mmol/L (24.0-30.0)
[2017-01-16 09:55] LABS: STICK SITE LINE
[2017-01-16 09:56] LABS: ABG COMMENT NO COMPLICATIONS
[2017-01-16 09:57] LABS: ALBUMIN 2.8 g/dL (3.4-5.0); TOTAL BILIRUBIN 0.6 mg/dL (<0.1-1.0); TOTAL PROTEIN 7.2 g/dL (6.4-8.2)
[2017-01-16 10:30] LABS: ABSOLUTE NEUTROPHILS 6.6 thou/uL (1.4-8.2); PLATELET ESTIMATE NORMAL; TOTAL CELL COUNT 100
[2017-01-16 10:52] LABS: URINE BILIRUBIN NEGATIVE (Negative); URINE BLOOD 2+ (Negative); URINE COLOR YELLOW; URINE GLUCOSE-RANDOM* 3+ (Negative); URINE KETONES 1+ (Negative); URINE NITRITE NEGATIVE (Negative); URINE PROTEIN (DIPSTICK) 3+ (Negative); URINE SPECIFIC GRAVITY 1.015 (1.003-1.035); URINE UROBILINOGEN 0.2 E.U./dl (0.2-1.0)
[2017-01-16 11:00] LABS: AMP/METHAMP Negative (Negative); BARBITURATES Negative (Negative); BENZODIAZEPINES Negative (Negative); COCAINE Negative (Negative); METHADONE Negative (Negative); OPIATES Negative (Negative); PCP Negative (Negative); THC Negative (Negative)
[2017-01-16 11:01] LABS: AMORPHOUS URATES Few /LPF (None Seen); BACTERIA 1-9 Few /HPF (None Seen); CASTS None Seen /LPF (None Seen); CRYSTALS None Seen /LPF (None Seen); SQUAMOUS None Seen /LPF (0-3); URINE RBC None Seen /HPF (0-2); URINE WBC 0-5 Rare /HPF (0-5)
[2017-01-16 12:37] LABS: CALCIUM 8.2 mg/dL (8.5-10.1); CREATININE 6.8 mg/dL (0.7-1.3); POTASSIUM 4.9 mmol/L (3.5-5.1)
[2017-01-16 15:27] LABS: CALCIUM 8.1 mg/dL (8.5-10.1); CREATININE 6.9 mg/dL (0.7-1.3); POTASSIUM 4.9 mmol/L (3.5-5.1)
[2017-01-16 17:20] LABS: ABG SAMPLE TYPE ARTERIAL; BE(vivo) -7.6 mmol/L (-2 to +3); HCO3 17.2 mmol/L (22.0-26.0); LACTATE 3.15 mmol/L (0.5-2.0); O2(CT) 14.9 mL/dL (15.0-23.0); PCO2 32.4 mmHg (35.0-45.0); PO2 75.1 mmHg (80.0-100.0); pH 7.342 (7.360-7.450); sO2 94.5 % (92.0-98.0); tCO2 18.2 mmol/L (24.0-30.0)
[2017-01-16 17:23] LABS: STICK SITE R.RADIAL
[2017-01-16 18:49] LABS: ALBUMIN 2.6 g/dL (3.4-5.0); CALCIUM 8.1 mg/dL (8.5-10.1); MAGNESIUM 1.9 mg/dL (1.8-2.4); PHOSPHORUS 5.1 mg/dL (2.5-4.9); POTASSIUM 4.1 mmol/L (3.5-5.1)
[2017-01-16 20:29] LABS: CALCIUM 8.5 mg/dL (8.5-10.1); CREATININE 6.9 mg/dL (0.7-1.3); POTASSIUM 3.9 mmol/L (3.5-5.1)
[2017-01-16 23:01] LABS: ALBUMIN 2.5 g/dL (3.4-5.0); CALCIUM 8.6 mg/dL (8.5-10.1); CREATININE 6.9 mg/dL (0.7-1.3); MAGNESIUM 1.8 mg/dL (1.8-2.4); PHOSPHORUS 4.5 mg/dL (2.5-4.9); POTASSIUM 3.4 mmol/L (3.5-5.1)
[2017-01-17] VITALS (34 sets, daily range): BP systolic 127–202; BP diastolic 61–165
[2017-01-17 02:08] LABS: ALBUMIN 2.5 g/dL (3.4-5.0); CALCIUM 8.7 mg/dL (8.5-10.1); CREATININE 6.6 mg/dL (0.7-1.3); MAGNESIUM 1.9 mg/dL (1.8-2.4); PHOSPHORUS 4.6 mg/dL (2.5-4.9); POTASSIUM 3.8 mmol/L (3.5-5.1)
[2017-01-17 04:27] LABS: CALCIUM 8.5 mg/dL (8.5-10.1); CREATININE 6.7 mg/dL (0.7-1.3); POTASSIUM 3.9 mmol/L (3.5-5.1)
[2017-01-17 05:16] LABS: ABG SAMPLE TYPE ARTERIAL; BE(vivo) -2.9 mmol/L (-2 to +3); HCO3 21.4 mmol/L (22.0-26.0); LACTATE 1.59 mmol/L (0.5-2.0); O2(CT) 14.2 mL/dL (15.0-23.0); O2Hb 97.1 % (92.0-98.0); PCO2 35.5 mmHg (35.0-45.0); PO2 105.8 mmHg (80.0-100.0); pH 7.399 (7.360-7.450); sO2 97.9 % (92.0-98.0); tCO2 22.5 mmol/L (24.0-30.0)
[2017-01-17 05:22] LABS: STICK SITE L.RADIAL
[2017-01-17 05:23] LABS: Pressure Support 8 cm H20
[2017-01-17 06:15] LABS: ALBUMIN 2.3 g/dL (3.4-5.0); CALCIUM 8.5 mg/dL (8.5-10.1); CREATININE 6.7 mg/dL (0.7-1.3); MAGNESIUM 1.8 mg/dL (1.8-2.4); PHOSPHORUS 4.5 mg/dL (2.5-4.9); POTASSIUM 3.7 mmol/L (3.5-5.1)
[2017-01-17 09:32] LABS: ALBUMIN 2.2 g/dL (3.4-5.0); CALCIUM 8.2 mg/dL (8.5-10.1); CREATININE 6.7 mg/dL (0.7-1.3); MAGNESIUM 1.7 mg/dL (1.8-2.4); PHOSPHORUS 4.6 mg/dL (2.5-4.9); POTASSIUM 3.5 mmol/L (3.5-5.1)
[2017-01-18] VITALS (26 sets, daily range): BP systolic 116–158; BP diastolic 59–79
[2017-01-18 04:59] LABS: MAGNESIUM 1.6 mg/dL (1.8-2.4)
[2017-01-18 05:00] LABS: ABSOLUTE NEUTROPHILS 4.5 thou/uL (1.4-8.2); BASOPHILS 0.7 % (0.0-2.0); EOSINOPHILS 5.3 % (0.0-3.0); HEMOGLOBIN 9.3 gm/dL (14.0-18.0); LYMPHOCYTES 17.9 % (24.0-44.0); MCH 26.8 pg (26.0-34.0); MCHC 33.3 g/dL (28.0-37.0); MCV 80.4 fL (80.0-100.0); POLYS 66.1 % (36.0-66.0); RBC 3.49 mil/uL (4.50-6.00); RDW 14.4 % (10.5-14.5); WBC 6.9 thou/uL (4.0-11.0)
[2017-01-18 05:02] LABS: ALBUMIN 1.9 g/dL (3.4-5.0); CALCIUM 7.8 mg/dL (8.5-10.1); CREATININE 6.8 mg/dL (0.7-1.3); POTASSIUM 3.8 mmol/L (3.5-5.1); TOTAL BILIRUBIN 0.4 mg/dL (<0.1-1.0); TOTAL PROTEIN 5.5 g/dL (6.4-8.2)
[2017-01-18 05:12] LABS: PLATELET COUNT 227 thou/uL (150-400)
[2017-01-18 05:14] LABS: MANUAL DIFF NO
[2017-01-18 05:42] LABS: ABG SAMPLE TYPE ARTERIAL; BE(vivo) -4.1 mmol/L (-2 to +3); HCO3 19.9 mmol/L (22.0-26.0); LACTATE 0.94 mmol/L (0.5-2.0); O2(CT) 14.3 mL/dL (15.0-23.0); O2Hb 95.2 % (92.0-98.0); PCO2 32.7 mmHg (35.0-45.0); PO2 83.1 mmHg (80.0-100.0); pH 7.402 (7.360-7.450); sO2 96.3 % (92.0-98.0); tCO2 20.9 mmol/L (24.0-30.0)
[2017-01-18 05:43] LABS: ABG COMMENT ROOM AIR; STICK SITE R.RADIAL
[2017-01-19 03:53] LABS: CREATININE 6.5 mg/dL (0.7-1.3); PHOSPHORUS 4.2 mg/dL (2.5-4.9); POTASSIUM 3.7 mmol/L (3.5-5.1)
[2017-01-19 04:50] VITALS: BP 158/63
[2017-01-19 08:25] VITALS: BP 174/69
[2017-01-19 16:15] VITALS: BP 156/76
[2017-01-19 20:00] VITALS: BP 129/72
[2017-01-20 04:00] VITALS: BP 187/85
[2017-01-20 06:31] LABS: CALCIUM 8.3 mg/dL (8.5-10.1); CREATININE 5.9 mg/dL (0.7-1.3); PHOSPHORUS 4.7 mg/dL (2.5-4.9); POTASSIUM 3.8 mmol/L (3.5-5.1)
[2017-01-20 07:35] VITALS: BP 185/75
[2017-01-20 10:27] VITALS: BP 184/86
[2017-01-20 20:00] VITALS: BP 182/90
[2017-01-20 23:06] LABS: GLYCOHEMOGLOBIN (HGB A1C) 9.8 % (4.8-5.6)
[2017-01-21] VITALS (8 sets, daily range): BP systolic 158–208; BP diastolic 76–108
[2017-01-21 02:05] LABS: C-PEPTIDE 0.1 ng/mL (1.1-4.4)
[2017-01-21 04:48] LABS: HEMATOCRIT 26.2 % (42.0-52.0); HEMOGLOBIN 8.8 gm/dL (14.0-18.0); MCH 26.6 pg (26.0-34.0); MCHC 33.6 g/dL (28.0-37.0); MCV 79.4 fL (80.0-100.0); PLATELET COUNT 209 thou/uL (150-400); RDW 13.8 % (10.5-14.5); WBC 5.2 thou/uL (4.0-11.0)
[2017-01-21 04:52] LABS: MANUAL DIFF YES
[2017-01-21 05:25] LABS: CALCIUM 8.3 mg/dL (8.5-10.1); CREATININE 5.5 mg/dL (0.7-1.3); PHOSPHORUS 5.1 mg/dL (2.5-4.9); POTASSIUM 3.8 mmol/L (3.5-5.1); TOTAL BILIRUBIN 0.2 mg/dL (<0.1-1.0); TOTAL PROTEIN 5.8 g/dL (6.4-8.2)
[2017-01-21 07:18] LABS: TOTAL CELL COUNT 100
[2017-01-21 07:19] LABS: ANISOCYTOSIS SLIGHT; POLYCHROMASIA OCCASIONAL
[2017-01-22] VITALS (7 sets, daily range): BP systolic 162–188; BP diastolic 82–91
[2017-01-22 07:20] LABS: ALBUMIN 2.3 g/dL (3.4-5.0); CALCIUM 8.2 mg/dL (8.5-10.1); CREATININE 5.4 mg/dL (0.7-1.3); PHOSPHORUS 5.5 mg/dL (2.5-4.9); POTASSIUM 3.8 mmol/L (3.5-5.1)
[2017-01-22] MEDS ORDERED: TRADJENTA5 MG PO (09:31)
[2017-01-22] MEDS ORDERED: CARDIZEM CD 30300 M1 PO (09:31)
== END 2017-01-22 13:36 | disposition home health service (06) | DRG 871 ==
LOC: ER 09:12 → ICU 10:35 → EROBS 10:35 → ICU 13:57 → 3N 01-18 11:38
PROVIDERS: Family Medicine; Hospitalist; Internal Medicine Endocrinology, Diabetes & Metabolism; Internal Medicine Nephrology; Internal Medicine Pulmonary Disease; Nurse Practitioner Acute Care; Nurse Practitioner Family; Physician Assistant
PROC: 02HV33Z Insertion of Infusion Device into Superior Vena Cava, Percutaneous Approach (ICD-10-PCS; principal; 2017-01-16)
PROC: 5A09457 Assistance with Respiratory Ventilation, 24-96 Consecutive Hours, Continuous Positive Airway Pressure (ICD-10-PCS; 2017-01-17)
DX: A41.9 Sepsis, unspecified organism (principal); E13.10 Other specified diabetes mellitus with ketoacidosis without coma; N18.6 End stage renal disease; E13.01 Other specified diabetes mellitus with hyperosmolarity with coma; K85.90 Acute pancreatitis without necrosis or infection, unspecified; G93.40 Encephalopathy, unspecified; E43 Unspecified severe protein-calorie malnutrition; I12.0 Hypertensive chronic kidney disease with stage 5 chronic kidney disease or end stage renal disease; N17.9 Acute kidney failure, unspecified; Z68.41 Body mass index [BMI] 40.0-44.9, adult; I16.0 Hypertensive urgency; E78.5 Hyperlipidemia, unspecified; E13.22 Other specified diabetes mellitus with diabetic chronic kidney disease; G47.33 Obstructive sleep apnea (adult) (pediatric); E66.9 Obesity, unspecified; Z91.19 Patient's noncompliance with other medical treatment and regimen; Z90.49 Acquired absence of other specified parts of digestive tract; Z91.041 Radiographic dye allergy status; Z91.013 Allergy to seafood; Z82.49 Family history of ischemic heart disease and other diseases of the circulatory system; Z83.3 Family history of diabetes mellitus; Z82.5 Family history of asthma and other chronic lower respiratory diseases; Z86.73 Personal history of transient ischemic attack (TIA), and cerebral infarction without residual deficits; Z87.01 Personal history of pneumonia (recurrent); Z87.891 Personal history of nicotine dependence
CPT/HCPCS: 10078; 10795; 27000

== ENCOUNTER 2017-07-07 10:18 | Emergency (ER) | payer OTHER ==
[~2017-07-07] VITALS: Ht 175.3 cm; Wt 119.8 kg
[~2017-07-07 10:18] MED LIST changes: +BASAGLAR K100 UNIT/1 SUBQ; +CARDIZEM CD 30300 M1 PO; +LASIX 80 MG TAB80 MG PO; +LISINOPRIL20 MG PO; +PAXIL10 MG PO; +RENVELA800 MG PO; +TRADJENTA5 MG PO
[2017-07-07 10:38] LABS: HEMATOCRIT 36.3 % (42.0-52.0); MCH 26.6 pg (26.0-34.0); MCV 80.7 fL (80.0-100.0); PLATELET COUNT 314 thou/uL (150-400); RDW 15.1 % (10.5-14.5); WBC 4.7 thou/uL (4.0-11.0)
[2017-07-07 10:45] LABS: CALCIUM 8.6 mg/dL (8.5-10.1); CREATININE 6.3 mg/dL (0.7-1.3); POTASSIUM 3.9 mmol/L (3.5-5.1)
[2017-07-07 10:54] LABS: ABSOLUTE NEUTROPHILS 2.3 thou/uL (1.4-8.2); PLATELET ESTIMATE NORMAL
[2017-07-07 12:13] VITALS: BP 185/93
[2017-10-20] MEDS ORDERED: CLONIDINE HCL0.3 M3 PO (23:56)
[2017-10-23] MEDS ORDERED: AMLODIPINE BESYL5 M1 PO (16:47)
== END 2017-07-07 12:54 | disposition home or self-care (01) ==
LOC: ER 10:18
PROVIDERS: Nurse Practitioner
DX: E11.649 Type 2 diabetes mellitus with hypoglycemia without coma (principal); R51 Headache; E11.22 Type 2 diabetes mellitus with diabetic chronic kidney disease; I12.0 Hypertensive chronic kidney disease with stage 5 chronic kidney disease or end stage renal disease; N18.5 Chronic kidney disease, stage 5; E11.10 Type 2 diabetes mellitus with ketoacidosis without coma; Z90.49 Acquired absence of other specified parts of digestive tract; Z86.73 Personal history of transient ischemic attack (TIA), and cerebral infarction without residual deficits; Z86.2 Personal history of diseases of the blood and blood-forming organs and certain disorders involving the immune mechanism; Z79.4 Long term (current) use of insulin; Z91.013 Allergy to seafood; Z91.041 Radiographic dye allergy status

== ENCOUNTER 2017-08-27 17:44 | Inpatient (IN) | payer OTHER ==
[~2017-08-27] VITALS: Ht 177.8 cm; Wt 118.9 kg
--- NOTE | ~2017-08-27 | HC ---
[facility] [place] [address] CONSULTATION Name: ABIMBOLAJOSEFA ROBBIE Room #: 353-P [facility]#: [id number] Admission: 08/27/17 Attend Phys: Nilesh Marino MD Discharge: 08/29/17 Date of : 75 Report #: [id number] THIS REPORT FOR: //name// CC: [place]ATO physician/PCP Nilesh Marino REASON FOR PRESENTATION: Nausea and vomiting. REASON FOR CONSULTATION: End-stage renal disease. HISTORY OF PRESENT ILLNESS: This is a very well known patient to me. He is an extremely noncompliant patient with past medical history of diabetes mellitus, hypertension and all complications related to that. He has repeated episodes of ketoacidosis, gastroparesis. He presented from his dialysis unit reporting that his blood pressure was high and he had some vomiting. I had been trying to manage his blood pressure as an outpatient; however, due to extreme noncompliance we were never able to get his blood pressure under control. I am being asked to evaluate his dialysis needs. PAST MEDICAL HISTORY: 1. End-stage renal disease. 2. Longstanding diabetes mellitus. 3. Hypertension. 4. Obstructive sleep apnea. 5. Noncompliance. 6. Post laparoscopic cholecystectomy. 7. Ketoacidosis. 8. Gastroparesis. ALLERGIES: IODINE. FAMILY HISTORY: Significant for diabetes mellitus and hypertension. SOCIAL HISTORY: No drug or alcohol abuse. He is currently disabled. REVIEW OF SYSTEMS: GENERAL: No fever or chills. CARDIOVASCULAR: Significant for some shortness of breath. PULMONARY: Shortness of breath, but no cough or hemoptysis. GASTROINTESTINAL: As per the history of present illness. GENITOURINARY: No frequency, no urgency, he still makes some urine. MEDICATIONS: 1. Carvedilol. 2. Lisinopril. 3. Aspirin. 4. Renagel. [facility] [address] [place] [address] CONSULTATION Name: JOSEFA DAILY Room #: 353-P [facility]#: [id number] Admission: 08/27/17 Attend Phys: Nilesh Marino MD Discharge: 08/29/17 Date of : 75 Report #: [id number] 5. Furosemide. 6. Recently switched from clonidine to hydralazine. PHYSICAL EXAMINATION: GENERAL: Alert, oriented, no apparent distress, sitting on the edge of the bed, comfortable. VITAL SIGNS: Pulse rate is 87, blood pressure is 169/78. HEAD AND NECK: No jugular venous distention, no bruit, no thyromegaly. CHEST: Clear to auscultation bilaterally. CARDIOVASCULAR: Regular with no rub. ABDOMEN: Soft, nontender with no hepatosplenomegaly. LOWER EXTREMITIES: No edema. LABORATORY DATA: Reviewed. Hemoglobin 12.5, blood sugar is greater than 500. BUN is 28, creatinine is 5. Head CT negative. ASSESSMENT, IMPRESSION AND PLAN: 1. End-stage renal disease. 2. Hypertensive urgency. 3. Diabetes mellitus. 4. Noncompliance with medical care. 5. Admission. 6. Blood pressure control. 7. Dialysis will be arranged for tomorrow. 8. Resume his outpatient blood pressure medications. 9. Titrate off Cardene. 10. Blood sugar control. 11. Counseling about his compliance issues. <ELECTRONICALLY SIGNED> By: Santosh Perez MD 09/02/17 0957 1018 1027 Santosh Perez MD /nt
--- NOTE | ~2017-08-27 | EKG ---
[address] [address] ELECTROCARDIOGRAM REPORT Name: DAQUAN DAIYLVIN AVALOS Room #: 170-9 ADM IN M.R.#: [id number] Admission: 08/27/17 Attend Phys: Nilesh Marino MD Discharge: Date of : 75 Report #: [id number] THIS REPORT FOR: //name// [facility] ED Test Date: 2017-08-27 Test Time: 20:39:20 Pat Name: JOSEFA DAILY Department: Room: 170 Gender: M Web Programmer: LISA : 1975 Requested By: Cruz Curtis Order Number: [id number] MD: Tejinder Graff Measurements Intervals [place] Rate: 73 P: 63 PA: 135 QRS: 55 QRSD: 95 T: -15 QT: 425 QTc: 469 Interpretive Statements Sinus rhythm Left atrial enlargement Borderline T wave abnormalities Compared to ECG 06/07/2017 07:50:29 No significant change was found Electronically Signed On 08-28-2017 8:08:51 MAIL ORDER CLERK by Tejinder Graff [email or web address] <ELECTRONICALLY SIGNED> By: Tejinder Graff MD, [facility] 08/28/17 0808 38 38 Tejinder Graff MD, [facility] /EPI
[2017-08-27 17:45] VITALS: BP 231/88
[2017-08-27 19:10] LABS: ABSOLUTE NEUTROPHILS 5.5 thou/uL (1.4-8.2); BASOPHILS 0.9 % (0.0-2.0); EOSINOPHILS 4.3 % (0.0-3.0); HEMATOCRIT 37.5 % (42.0-52.0); HEMOGLOBIN 12.5 gm/dL (14.0-18.0); MCH 27.3 pg (26.0-34.0); MCHC 33.4 g/dL (28.0-37.0); MCV 81.7 fL (80.0-100.0); MONOCYTES 7.7 % (1.0-8.0); PLATELET COUNT 302 thou/uL (150-400); POLYS 78.1 % (36.0-66.0); RBC 4.59 mil/uL (4.50-6.00); RDW 16.7 % (10.5-14.5)
[2017-08-27 19:21] LABS: CALCIUM 8.9 mg/dL (8.5-10.1)
[2017-08-27 19:26] LABS: ALBUMIN 3.1 g/dL (3.4-5.0); TOTAL BILIRUBIN 0.5 mg/dL (<0.1-1.0); TOTAL PROTEIN 8.6 g/dL (6.4-8.2)
[2017-08-27 22:10] VITALS: BP 181/85
[2017-08-28] VITALS (8 sets, daily range): BP systolic 156–176; BP diastolic 78–96
[2017-08-28 20:09] LABS: HAV IgM AB (ANTI-HAV IgM) Negative (Negative); HEPATITIS B SURFACE AG Negative (Negative); HEPATITIS C VIRUS AB <0.1 (0.0-0.9)
[2017-08-29 04:41] VITALS: BP 170/83
[2017-08-29 10:34] VITALS: BP 231/117
[2017-08-29 11:50] VITALS: BP 180/83
[2017-10-20] MEDS ORDERED: CLONIDINE HCL0.3 M3 PO (23:56)
[2017-10-23] MEDS ORDERED: AMLODIPINE BESYL5 M1 PO (16:47)
== END 2017-08-29 12:59 | disposition home or self-care (01) | DRG 304 ==
LOC: ER 17:44 → EROBS 20:45 → 3W 20:45 → ENTRNSPT 08-29 12:49 → EDTRNSPTSTS 08-29 12:56 → 3W 08-29 12:59
PROVIDERS: Nurse Practitioner Acute Care; Physician Assistant
PROC: 5A1D70Z Performance of Urinary Filtration, Intermittent, Less than 6 Hours Per Day (ICD-10-PCS; principal; 2017-08-28)
DX: I16.0 Hypertensive urgency (principal); N18.6 End stage renal disease; I13.2 Hypertensive heart and chronic kidney disease with heart failure and with stage 5 chronic kidney disease, or end stage renal disease; K59.00 Constipation, unspecified; E11.22 Type 2 diabetes mellitus with diabetic chronic kidney disease; R74.0 Nonspecific elevation of levels of transaminase and lactic acid dehydrogenase [LDH]; G47.33 Obstructive sleep apnea (adult) (pediatric); Z91.14 Patient's other noncompliance with medication regimen; Z90.49 Acquired absence of other specified parts of digestive tract; Z86.73 Personal history of transient ischemic attack (TIA), and cerebral infarction without residual deficits; Z91.041 Radiographic dye allergy status; Z91.013 Allergy to seafood; Z83.3 Family history of diabetes mellitus; Z82.49 Family history of ischemic heart disease and other diseases of the circulatory system; Z83.6 Family history of other diseases of the respiratory system; Z84.1 Family history of disorders of kidney and ureter; Z79.82 Long term (current) use of aspirin; Z79.899 Other long term (current) drug therapy
CPT/HCPCS: 10879; 32100

== ENCOUNTER 2018-07-08 04:54 | Emergency (ER) | payer OTHER ==
[~2018-07-08] VITALS: Ht 175.3 cm; Wt 117.9 kg
[~2018-07-08 04:54] MED LIST changes: +CLONIDINE HCL0.3 M3 PO
[2018-07-08 05:11] LABS: HEMATOCRIT 37.8 % (42.0-52.0); HEMOGLOBIN 12.4 gm/dL (14.0-18.0); MCH 27.6 pg (26.0-34.0); MCHC 32.7 g/dL (28.0-37.0); MCV 84.5 fL (80.0-100.0); RBC 4.48 mil/uL (4.50-6.00); RDW 14.3 % (10.5-14.5); WBC 4.3 thou/uL (4.0-11.0)
[2018-07-08] MEDS ORDERED: NOVOLOG100 UNIT/1 SUBQ (05:11)
[2018-07-08] MEDS ORDERED: TRESIBA FL100 UNIT/1 SUBQ (05:11)
[2018-07-08] MEDS ORDERED: REGLAN 5 MG TAB5 MG PO (05:18)
[2018-07-08 05:19] LABS: ANION GAP 7 mmol/L (7-16); BUN 19 mg/dL (7-18); CALCIUM 8.5 mg/dL (8.5-10.1); CHLORIDE 96 mmol/L (98-107); CO2 33 mmol/L (21-32); CREATININE 4.3 mg/dL (0.7-1.3); GLUCOSE 201 mg/dL (74-106); POTASSIUM 3.6 mmol/L (3.5-5.1); SODIUM 136 mmol/L (136-145)
[2018-07-08] MEDS ORDERED: SENSIPAR 30 MG30 M1 PO (05:20)
[2018-07-08] MEDS ORDERED: MINOXIDIL2.5 MG PO (05:21)
[2018-07-08 05:28] LABS: ALBUMIN 3.5 g/dL (3.4-5.0); SGOT 23 U/L (15-37); SGPT 23 U/L (30-65); TOTAL BILIRUBIN 0.3 mg/dL (<0.1-1.0); TOTAL PROTEIN 8.3 g/dL (6.4-8.2); TROPONIN-I <0.06 ng/mL (<0.06)
[2018-07-08 08:16] VITALS: BP 127/75
--- NOTE | 2018-07-08 09:24 | EKG ---
[place] [address] [facility] [address] [place] [address] ELECTROCARDIOGRAM REPORT Name: JOSEFA DAILY [id number] Admission: 07/08/18 Attend Phys: Discharge: 07/08/18 Date of : 75 Report #: [id number] THIS REPORT FOR: //name// [facility] ED Test Date: 2018-07-08 Test Time: 05:22:19 Pat Name: JOSEFA DAILY Department: Room: Gender: Telex Operator: quinton evans : 1975 Requested By: Elia Alcala Order Number: [id number] MD: Tejinder Graff Measurements Intervals [place] Rate: 80 P: 64 MT: 132 QRS: 56 QRSD: 95 T: 40 QT: 396 QTc: 457 Interpretive Statements Sinus rhythm Atrial premature complex Abnormal R-wave progression, late transition Baseline wander in lead(s) V6 Compared to ECG 10/20/2017 06:06:00 Atrial premature complex(es) now present ST and T wave abnormality less pronounced Electronically Signed On 07-08-2018 9:24:12 AUDOGRAPH OPERATOR by Tejinder Graff [email or web address] <ELECTRONICALLY SIGNED> By: Tejinder Graff MD, [facility] 07/08/18 0924 0522 Tejinder Graff MD, [facility] /EPI
== END 2018-07-08 08:51 | disposition home or self-care (01) ==
LOC: ER 04:54
PROVIDERS: Emergency Medicine
DX: R42 Dizziness and giddiness (principal); R53.1 Weakness; I12.0 Hypertensive chronic kidney disease with stage 5 chronic kidney disease or end stage renal disease; E11.22 Type 2 diabetes mellitus with diabetic chronic kidney disease; N18.6 End stage renal disease; Z90.49 Acquired absence of other specified parts of digestive tract; Z86.73 Personal history of transient ischemic attack (TIA), and cerebral infarction without residual deficits; Z87.01 Personal history of pneumonia (recurrent); Z79.4 Long term (current) use of insulin; Z91.041 Radiographic dye allergy status; Z91.013 Allergy to seafood

== ENCOUNTER → 2019-04-30 | Outpatient (CLI) | payer OTHER ==
[~2019-04-30] MED LIST changes: +MINOXIDIL2.5 MG PO; +REGLAN 5 MG TAB5 MG PO; +SENSIPAR 30 MG30 M1 PO; +TRESIBA FL100 UNIT/1 SUBQ
== END ==
LOC: MRI 10:07
DX: S14.2XXA Injury of nerve root of cervical spine, initial encounter (principal); X58.XXXA Exposure to other specified factors, initial encounter; Y93.89 Activity, other specified; Y92.89 Other specified places as the place of occurrence of the external cause; Y99.8 Other external cause status

== ENCOUNTER → 2019-07-31 | Outpatient (CLI) | payer OTHER ==
[~2019-07-31] MED LIST changes: +EDARBI40 MG PO; +LEVEMIR100 UNIT/1 SUBQ; +LIPITOR 20 MG T20 M1 PO; +NEURONTIN300 MG PO; +PAXIL40 MG PO; +VELPHORO500 MG PO; +VIAGRA25 MG PO
== END ==
LOC: SJCVC 15:19
DX: R94.31 Abnormal electrocardiogram [ECG] [EKG] (principal); I13.10 Hypertensive heart and chronic kidney disease without heart failure, with stage 1 through stage 4 chronic kidney disease, or unspecified chronic kidney disease; E11.22 Type 2 diabetes mellitus with diabetic chronic kidney disease; N18.9 Chronic kidney disease, unspecified; E78.5 Hyperlipidemia, unspecified; Z79.4 Long term (current) use of insulin; Z79.899 Other long term (current) drug therapy

== ENCOUNTER → 2019-08-27 | Outpatient (CLI) | payer OTHER | LOC: SJCVCIMAG 08:45 | DX: I10 Essential (primary) hypertension (principal); R06.00 Dyspnea, unspecified; E11.42 Type 2 diabetes mellitus with diabetic polyneuropathy; F17.200 Nicotine dependence, unspecified, uncomplicated ==

== ENCOUNTER → 2019-08-28 | Outpatient (CLI) | payer OTHER | LOC: SJCVCIMAG 09:34 | DX: R06.00 Dyspnea, unspecified (principal); I12.9 Hypertensive chronic kidney disease with stage 1 through stage 4 chronic kidney disease, or unspecified chronic kidney disease; N18.9 Chronic kidney disease, unspecified; E78.5 Hyperlipidemia, unspecified; E11.9 Type 2 diabetes mellitus without complications; Z79.4 Long term (current) use of insulin; Z87.891 Personal history of nicotine dependence; Z79.899 Other long term (current) drug therapy ==

== ENCOUNTER 2019-09-01 21:32 | Inpatient (IN) | payer OTHER ==
[~2019-09-01] VITALS: Ht 177.8 cm; Wt 143.3 kg
[~2019-09-01 21:32] MED LIST changes: -EDARBI40 MG PO; -LEVEMIR100 UNIT/1 SUBQ; -LIPITOR 20 MG T20 M1 PO; -NEURONTIN300 MG PO; -PAXIL40 MG PO; -VELPHORO500 MG PO; -VIAGRA25 MG PO
[2019-09-01 21:38] VITALS: BP 162/111
[2019-09-01] MEDS ORDERED: REGLAN 5 MG TAB5 MG PO ×2 (21:50)
[2019-09-01] MEDS ORDERED: LEVEMIR100 UNIT/1 SUBQ ×2 (21:50)
[2019-09-01] MEDS ORDERED: VELPHORO500 MG PO ×2 (21:52)
[2019-09-01] MEDS ORDERED: EDARBI40 MG PO ×2 (21:53)
[2019-09-01] MEDS ORDERED: PAXIL40 MG PO ×2 (21:53)
[2019-09-01] MEDS ORDERED: NEURONTIN300 MG PO ×2 (21:54)
[2019-09-01] MEDS ORDERED: LIPITOR 20 MG T20 M1 PO ×2 (21:55)
[2019-09-01] MEDS ORDERED: VIAGRA25 MG PO (21:55)
[2019-09-01 22:22] LABS: BE(vivo) 0.3 mmol/L (-2 to +3); HCO3 25.7 mmol/L (22.0-26.0); PCO2 VENOUS 44.9 mmHg (41.0-51.0)
[2019-09-01 22:35] LABS: HEMATOCRIT 32.7 % (42.0-52.0); HEMOGLOBIN 10.6 gm/dL (14.0-18.0); MCH 27.1 pg (26.0-34.0); MCHC 32.3 g/dL (28.0-37.0); MCV 83.9 fL (80.0-100.0); PLATELET COUNT 200 thou/uL (150-400); RBC 3.89 mil/uL (4.50-6.00); RDW 14.6 % (10.5-14.5)
[2019-09-01 22:45] LABS: ALBUMIN 3.1 g/dL (3.4-5.0); CALCIUM 7.9 mg/dL (8.5-10.1); CREATININE 6.9 mg/dL (0.7-1.3); POTASSIUM 3.4 mmol/L (3.5-5.1); TOTAL BILIRUBIN 0.6 mg/dL (<0.1-1.0); TOTAL PROTEIN 7.2 g/dL (6.4-8.2)
[2019-09-01 22:47] LABS: TROPONIN-I <0.06 ng/mL (<0.06)
[2019-09-01 23:15] LABS: ABSOLUTE NEUTROPHILS 3.6 thou/uL (1.4-8.2); ANISOCYTOSIS 1+; LARGE PLATELETS OCCASIONAL
[2019-09-02] VITALS (8 sets, daily range): BP systolic 134–215; BP diastolic 63–90
--- NOTE | 2019-09-02 05:59 | NUR ---
PT ARRIVED AT THE UNIT AROUND 0230, PT IS ALERT AND ORIENTEDX4, B/S AT 489, INSULIN GIVEN ORDERED, DENIES NAUSEA AND VOMITING, COMPLAINED OF EPIGASTRIC PAIN, TEMP AT 100.0, TYL GIVEN WITH PARTIAL RELIEF, PT ADMISSION ASSESSMENT COMPLETED AND CHARTED, B/S RECHECKED AT 0500, B/S 389, MECHANICAL FACILITIES TECHNICIAN CONTACTED AND AN ORDER OF ONETIME DOSE INSULIN RECEIVED AND GIVEN ORDERED, PT IS RESTING QUITELY IN BED WITH NO DISTRESS, WILL CONTINUE TO MONITOR
[2019-09-02 06:09] LABS: CALCIUM 7.4 mg/dL (8.5-10.1); CREATININE 7.4 mg/dL (0.7-1.3); POTASSIUM 3.1 mmol/L (3.5-5.1)
--- NOTE | 2019-09-02 08:16 | EKG ---
[facility] [place] [address] ELECTROCARDIOGRAM REPORT Name: ABIMBOLAJOSEFA LEE Room #: 218-P ADM IN M.R.#: [id number] Admission: 09/02/19 Attend Phys: Molina Méndez MD Discharge: Date of : 75 Report #: [id number] THIS REPORT FOR: cc: Farida Zendejas DNP, Mary E. DNP Couchonnal, Luis F. MD ~ THIS REPORT FOR: //name// [facility] ED Test Date: 2019-09-01 Test Time: 21:51:48 Pat Name: JOSEFA DAILY Department: Room: 218 Gender: M Locker Room Attendant: IESHA : 1975 Requested By: Leona Lemos Order Number: [id number] MD: Alvaro Hale Measurements Intervals [place] Rate: 87 P: 61 [place]: 136 QRS: 76 QRSD: 93 T: -85 QT: 365 QTc: 439 Interpretive Statements Sinus rhythm Probable left atrial enlargement Borderline repolarization abnormality No previous ECG available for comparison Electronically Signed On 09-02-2019 8:15:21 CDT by Alvaro Hale [email or web address] <ELECTRONICALLY SIGNED> By: Alvaro Hale MD 09/02/19 0815 50 50 Alvaro Hale MD /EPI
--- NOTE | 2019-09-02 17:03 | NUR ---
PT CARE ASSUMED APPROX 0700. PT DENIES SOA. REPORTS ABD PAIN THAT ALSO IS REPORTED TO BE ADEQUATELY MANAGED WITH CURRENT POC. WILL CONTINUE TO MANAGE PAIN PER PT REQUEST. BP ELEVATED ON HD. IMPROVED AFTER HD COMPLETED. PT CONTINUES TO HAVE LOW GRADE TEMPS. DR PIERRE AWARE OF ALL ABNORMALITIES. JAN CONTINUE TO TREAT AND MONITOR ORDERS ALLOW. PT DENIES QUESTIONS OR CONCERNS REGARDING POC. NO DISTRESS NOTED.
--- NOTE | 2019-09-02 17:17 | NUR ---
Case opened to follow for dc planning. [place] Operator visited with the pt at bedside. He is a&ox4 and indicates that [place] due to not returning his annual review on time. He has the paperwork started at home and will finish and submit it with his financial verifications as soon as possible. [place]. He lives with his and is indep with gait and adl's. He does nocturnal dialysis at [facility] nights. He has been using insulin at home and feels this is what got him in trouble. Charlie notified of [place]icaid issues and asked to see him to assist. The pt has medicare as his primary coverage for hospital and outpt f/u. He sees DRIVER Farida Zendejas as an outpt for pcp. Cm to follow and assist with vouchering his dc medications to allow time for his medicaid to get reactivated.
[2019-09-03 00:08] LABS: GLYCOHEMOGLOBIN (HGB A1C) 13.3 % (4.8-5.6)
[2019-09-03 03:23] VITALS: BP 182/71
--- NOTE | 2019-09-03 05:22 | NUR ---
PATIENTS CARES WERE ASSUMED AT SHIFT CHANGE. PATIENT WAS ASSESSED AND MEDS WERE PASSED. PATIENT DID GET 42 UNITS OF LANTUS LAST NIGHT WHILE THE SLIDE SCALE OF 3 UNITS WAS NOT RECIEVED. PATIENT WAS CONCERNED ABOUT GOING TO LOW. HOURLY ROUNDS WERE DONE. PATIENT DID SLEEP MOST OF THE SHIFT. THE BED IS IN A LOW AND LOCKED POSITION
[2019-09-03 07:00] VITALS: BP 184/86
[2019-09-03 07:09] LABS: HEP B SURFACE Ab(ANTI-HBS Reactive (()); HEPATITIS B SURFACE AG Negative (Negative)
--- NOTE | 2019-09-03 08:08 | HC ---
[facility] [place] [address] CONSULTATION Name: JOSEFA DAILY Room #: 218-P [facility] IN .R.#: [id number] Admission: 09/02/19 Attend Phys: Nilesh Marino MD Discharge: Date of : 75 Report #: [id number] THIS REPORT FOR: cc: Farida Zendejas DNP, Mary E. DNP Al-Mubaslat, Ahmad MD ~ CC: Nilesh Zendejas DATE OF SERVICE: 09/02/2019 ENDOCRINE CONSULTATION NOTE CONSULTING PHYSICIAN: Dr. Molina Méndez. REASON FOR CONSULTATION: Uncontrolled type 2 diabetes mellitus, severe hyperglycemia. HISTORY OF PRESENT ILLNESS: This is a 44-year-old male patient whose medical background is significant for multiple medical issues including longstanding type 2 diabetes mellitus, hypertension, hyperlipidemia, end-stage renal disease requiring hemodialysis 3 times a week as well as background issues of pancreatitis, chronic anemia, TIA, and morbid obesity. The patient presented yesterday to the ER with complaints of slowly progressive abdominal pain associated with nausea and vomiting at least on 1 occasion. On arrival, the patient was found to have severe hyperglycemia and was admitted for further care and monitoring. The patient was maintained on an insulin regimen of Levemir insulin 42 units daily in addition to Humalog insulin 20 units before meals, reports an adequate level of control on this regimen. Unfortunately, as his health insurance status changed, the patient could not access his usual insulin regimen and describes resorting to alternative insulins, although he could not be very specific on the brand or the dosages he had been using. The patient reports that his blood glucose values typically run in the low to mid 200 mg/dL range without issues of hypoglycemia. Again, the patient is known to have end-stage renal disease, but not retinopathy or peripheral neuropathy. REVIEW OF SYSTEMS: CONSTITUTIONAL: Fatigue, tiredness, but not fever or chills or body weight changes. HEENT: Negative for sore throat, sinus pain or ear drainage. PULMONARY: Occasional shortness of breath and cough, but no hemoptysis. CARDIAC: Negative for chest pain, palpitations, but noted for intermittent issues with lower extremity swelling. [facility] [address] [place] [address] CONSULTATION Name: JOSEFA DAILY Room #: 218-P [facility] IN ..#: [id number] Admission: 09/02/19 Attend Phys: Nilesh Marino MD Discharge: Date of : 75 Report #: [id number] GASTROINTESTINAL: Abdominal discomfort, nausea and vomiting. NEUROLOGY: Negative for loss of consciousness, seizure activity or severe frequent headaches. UROLOGY: Negative for dysuria or hematuria. MUSCULOSKELETAL: Noted for sporadic recurrent arthralgias, myalgias. Otherwise, review of systems noncontributory other than those mentioned in HPI. PAST MEDICAL HISTORY: 1. Type 2 diabetes mellitus. 2. Hyperlipidemia. 3. Hypertension. 4. End-stage renal disease, on hemodialysis 3 times a week. 5. History of transient ischemic attack. 6. Anemia. 7. History of pancreatitis. 8. History of diabetic ketoacidosis. OUTPATIENT MEDICATIONS: Include NovoLog 20 units before meals, Levemir 42 units at bedtime, aspirin 81 mg daily, Renvela 800 mg t.i.d., Lasix 80 mg daily, Sensipar 30 mg or 90 mg weekly, Loniten 2.5 mg b.i.d., Reglan 5 mg q. 8 hours, Edarbi 1 tab daily, Paxil 1 tab daily, gabapentin 300 mg at bedtime, Lipitor 20 mg at bedtime, sildenafil 25 mg daily. ALLERGIES: IODINE AND SHELLFISH. FAMILY HISTORY: Noncontributory. SOCIAL HISTORY: The patient drinks alcohol only seldom. He does not smoke. He is , has 3 children. PHYSICAL EXAMINATION: GENERAL: Pleasant -Citizen [place] male patient who is not in apparent pain or distress. VITAL SIGNS: Blood pressure is 162/85 mmHg, heart rate is 82 beats per minute, respirations 16 per minute, temperature 36.9 degrees. CONSTITUTIONAL: The patient is sitting up in bed, seems comfortable, not in apparent distress. HEENT: Anicteric sclerae. Intact extraocular motions. NECK: Supple, without JVD, carotid bruits or lymphadenopathy. I do not appreciate thyromegaly. CHEST: Noted for moderate air entry bilaterally with scattered rales. No wheeze or crackles. HEART: Regular rate and rhythm without murmurs or gallops. ABDOMEN: Soft, lax. No guarding. Active bowel sounds. EXTREMITIES: Lower extremity exam noted for +1 ankle edema bilaterally with stasis dermatitis. No skin breaks or ulcerations. Pedal pulses are [address] [address] CONSULTATION Name: JOSEFA DAILY ROBBIE Room #: 218-P ADM IN M.R.#: [id number] Admission: 09/02/19 Attend Phys: Nilesh Marino MD Discharge: Date of : 75 Report #: [id number]. NEUROLOGIC: Awake, alert and oriented to time, place and person. The remainder of his examination is nonfocal. PSYCHIATRIC: Pleasant, interactive. Normal mood and affect. LABORATORY DATA: Blood glucose values on arrival were over 500 and got to a maximum of 654 mg/dL, but had been since then progressively declined to as low as 218 mg/dL. Sodium 135, potassium 3.1, chloride 96, CO2 of 27, anion gap 12. Anion gap was 9 on presentation. BUN 34, creatinine 7.4, AST 18, lipase 35, total bilirubin 0.6, direct bilirubin less than 0.1, calcium 7.4, phosphorus 6.3, magnesium 2.3, alkaline phosphatase 293, ALT 14, total protein 7.2, albumin 3.1, EGFR 10. Lactic acid 1.7. White blood count 5.0, hemoglobin 10.6, hematocrit 32.7, platelets 200, hemoglobin A1c in December 2016 was 9.8, one from this admission is processing. ASSESSMENT AND PLAN: 1. Type 2 diabetes mellitus. The patient has a longstanding history of type 2 diabetes mellitus with major end-organ complications, mostly manifested in the form of end-stage renal disease. The patient has done well on his basal bolus regimen up until a month ago and access to this regimen had been complicated by changes in his insurance status. Subsequently, he presented in severe hyperglycemia, but fortunately without changes of diabetic ketoacidosis. The patient and I discussed the necessity of adhering to his insulin regimen and if not feasible working on finding an alternative that is accessible to him. In the immediate setting, I would resume his baseline insulin regimen in the form of Lantus 42 units at bedtime, Humalog supplemental scale 20 units t.i.d. a.c. in addition to support with Humalog supplemental scale, moderate intensity to be used as needed. Blood glucose monitoring will commence a.c. and at bedtime and further therapeutic changes will be made accordingly. A hemoglobin A1c is being measured to further assess his overall outlook over the past few months. 2. Hypertension. The patient's level of blood pressure control has been marginal. He is currently on carvedilol, minoxidil and I will defer further changes in this regard to Dr. Perez who is following him as well. 3. Peripheral diabetic neuropathy. The patient is maintained on gabapentin 300 mg at bedtime and reports adequate control with this regimen, he is to continue with the same. 4. Hyperlipidemia. The patient is maintained on atorvastatin therapy and tolerates it well, he is to continue with the same. I certainly appreciate this consultation by Dr. Méndez. I have reviewed the patient's clinical care notes, previous laboratory data, [address] [place] [address] CONSULTATION Name: JOSEFA DAILY Room #: 218-P [facility] IN ..#: [id number] Admission: 09/02/19 Attend Phys: Nilesh Marino MD Discharge: Date of : 75 Report #: [id number] radiologic data, and other pertinent clinical information of past and present for over 35 minutes. <ELECTRONICALLY SIGNED> By: Tin Solomon MD 09/03/19 0808 0848 0926 Tin Solomon MD /nt
[2019-09-03] MEDS ORDERED: LIPITOR 20 MG T20 M1 PO ×2 (10:30)
[2019-09-03] MEDS ORDERED: CARVEDILOL25 MG PO ×2 (10:31)
[2019-09-03] MEDS ORDERED: MINOXIDIL2.5 MG PO ×2 (10:31)
[2019-09-03] MEDS ORDERED: EDARBI40 MG PO ×2 (10:31)
[2019-09-03] MEDS ORDERED: RENVELA800 MG PO ×2 (10:32)
[2019-09-03] MEDS ORDERED: LASIX 80 MG TAB80 MG PO ×2 (10:32)
[2019-09-03] MEDS ORDERED: PAXIL40 MG PO ×2 (10:32)
[2019-09-03] MEDS ORDERED: NEURONTIN300 MG PO ×2 (10:32)
[2019-09-03] MEDS ORDERED: VELPHORO500 MG PO ×2 (10:32)
[2019-09-03] MEDS ORDERED: SENSIPAR 30 MG30 M1 PO ×2 (10:33)
[2019-09-03] MEDS ORDERED: LEVEMIR100 UNIT/1 SUBQ ×2 (10:33)
[2019-09-03] MEDS ORDERED: NOVOLOG100 UNIT/1 SUBQ ×2 (10:33)
[2019-09-03] MEDS ORDERED: REGLAN 5 MG TAB5 MG PO ×2 (10:33)
[2019-09-03 11:00] VITALS: BP 135/66
--- NOTE | 2019-09-03 13:26 | NUR ---
Pt dcing home this afternoon. Scripts taken to the outpt [facility] to be vouchered for one month. Pt and spouse to finalize their medicaid verification documents so his [place] medicaid can get reinstated soon. Pt was grateful for the assistance. No other needs noted. 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
--- NOTE | 2019-09-03 13:32 | NUR ---
PT DISCHARGED AT THIS TIME. EDUCATION AND PAPERWORK REVIEWED WITH PT AND SPOUSE. BOTH DENY QUESTIONS OR CONCERNS REGARDING POST HOSPITAL CARES. IV OUT, TELE BOX. HOSPITAL TRANSPORTATION ESCORTED PT OUT VIA WHEELCHAIR.
--- NOTE | 2019-09-03 14:56 | NUR ---
FAXED DC SUMMARY TO [facility] RECEIVED CONFIRMATION AND LEFT MSG WITH INTAKE.
--- NOTE | 2019-09-04 08:29 | HC ---
[facility] [place] [address] CONSULTATION Name: JOSEFA DAILY Room #: 218-P [facility] IN M.R.#: [id number] Admission: 09/02/19 Attend Phys: Nilesh Marino MD Discharge: 09/03/19 Date of : 75 Report #: [id number] THIS REPORT FOR: cc: Farida Zendejas DNP, Mary E. DNP Al-Absi, Ahmed I. MD ~ CC: Nilesh Zendejas DATE OF SERVICE: 09/02/2019 REASON FOR CONSULTATION: End-stage renal disease. REASON FOR PRESENTATION: Nausea and vomiting. HISTORY OF PRESENT ILLNESS: Very well-known patient to me. He is an end-stage renal disease patient due to diabetes mellitus and hypertension. He has extreme noncompliance with all of his medical care. He is a nocturnal dialysis patient who presented with some nausea and vomiting. He has not been taking his insulin due to insurance issues. He was found to have significantly elevated blood sugar on his presentation at 654. He was admitted to further evaluate. I am being asked to evaluate and assist with his end-stage renal disease. PAST MEDICAL HISTORY: 1. End-stage renal disease, maintained on hemodialysis every Saturday, Saturday and Saturday. 2. Diabetes mellitus. 3. Hypertension. 4. Laparoscopic cholecystectomy. 5. Anemia. 6. Repeated episodes of diabetic ketoacidosis. 7. Left upper extremity AV fistula. FAMILY HISTORY: Strong family history of diabetes mellitus and hypertension. REPORTED MEDICATIONS: 1. Aspirin. 2. Lasix. 3. Sensipar. 4. Edarbi. 5. Minoxidil. 6. Paroxetine. 7. Gabapentin. 8. Atorvastatin. REVIEW OF SYSTEMS: [facility] [address] [place] [address] CONSULTATION Name: JOSEFA DIALY Room #: 218-P [facility] IN M.R.#: [id number] Admission: 09/02/19 Attend Phys: Nilesh Marino MD Discharge: 09/03/19 Date of : 75 Report #: [id number] GENERAL: Significant for weakness. CARDIOVASCULAR: No chest pain or palpitation. PULMONARY: No cough or hemoptysis. GASTROINTESTINAL: As per the history of present illness. GENITOURINARY: Makes little urine. No frequency, no urgency ALLERGIES: IODINE. PHYSICAL EXAMINATION: VITAL SIGNS: Temperature 37.7, blood pressure on presentation ____ elevated at 215/90. HEAD AND NECK: No jugular venous distention. CHEST: No crackles. CARDIOVASCULAR: Regular with no rub detected. ABDOMEN: Soft, nontender. LOWER EXTREMITIES: No edema. LABORATORY VALUES: - Hemoglobin is 10.6 - Chemistry; sodium 135, potassium 3.1, BUN 34, creatinine 7.4. ASSESSMENT: 1. End-stage renal disease. 2. Noncompliance. 3. Diabetes mellitus. 4. Hypertension. 5. Ongoing gastrointestinal issues. PLAN: 1. Arrange for hemodialysis today. 2. Routine workup for his nausea and vomiting. 3. Blood sugar control. 4. Blood pressure control. 5. Continue to counselor at law about his compliance issues. <ELECTRONICALLY SIGNED> By: Santosh Perez MD 09/04/19 0829 0714 0751 Santosh Perez MD /nt
== END 2019-09-03 13:30 | DRG 637 ==
LOC: ER 21:32 → 2N 09-02 01:26 → EROBS 09-02 01:26 → 2N 09-02 02:18 → ENTRNSPT 09-03 13:14 → EDTRNSPTSTS 09-03 13:17 → 2N 09-03 13:30
PROVIDERS: Hospitalist; Nurse Practitioner Family; Physician Assistant; ADMIT Hospitalist
PROC: 5A1D70Z Performance of Urinary Filtration, Intermittent, Less than 6 Hours Per Day (ICD-10-PCS; principal; 2019-09-02)
DX: E11.65 Type 2 diabetes mellitus with hyperglycemia (principal); N18.6 End stage renal disease; I12.0 Hypertensive chronic kidney disease with stage 5 chronic kidney disease or end stage renal disease; E78.5 Hyperlipidemia, unspecified; D64.9 Anemia, unspecified; E11.42 Type 2 diabetes mellitus with diabetic polyneuropathy; E87.5 Hyperkalemia; E11.22 Type 2 diabetes mellitus with diabetic chronic kidney disease; Z90.49 Acquired absence of other specified parts of digestive tract; Z86.73 Personal history of transient ischemic attack (TIA), and cerebral infarction without residual deficits; Z91.041 Radiographic dye allergy status; Z91.013 Allergy to seafood; Z83.3 Family history of diabetes mellitus; Z82.49 Family history of ischemic heart disease and other diseases of the circulatory system; Z91.19 Patient's noncompliance with other medical treatment and regimen; Z79.82 Long term (current) use of aspirin; Z79.899 Other long term (current) drug therapy; Z99.2 Dependence on renal dialysis
CPT/HCPCS: 10081; 32100

== ENCOUNTER 2019-12-21 19:12 | Emergency (ER) | payer OTHER ==
[~2019-12-21] VITALS: Ht 182.9 cm; Wt 113.4 kg
[~2019-12-21 19:12] MED LIST changes: +EDARBI40 MG PO; +LEVEMIR100 UNIT/1 SUBQ; +LIPITOR 20 MG T20 M1 PO; +NEURONTIN300 MG PO; +PAXIL40 MG PO; +VELPHORO500 MG PO; +VIAGRA25 MG PO
[2019-12-21 20:40] LABS: BASOPHILS 1.3 % (0.0-2.0); EOSINOPHILS 7.8 % (0.0-3.0); HEMATOCRIT 35.5 % (42.0-52.0); HEMOGLOBIN 11.8 gm/dL (14.0-18.0); LYMPHOCYTES 22.9 % (24.0-44.0); MCH 27.4 pg (26.0-34.0); MCHC 33.1 g/dL (28.0-37.0); MCV 82.8 fL (80.0-100.0); PLATELET COUNT 196 thou/uL (150-400); RBC 4.29 mil/uL (4.50-6.00)
[2019-12-21 20:48] LABS: ANION GAP 14 mmol/L (7-16); BUN 81 mg/dL (7-18); CALCIUM 8.7 mg/dL (8.5-10.1); CHLORIDE 99 mmol/L (98-107); CO2 23 mmol/L (21-32); CREATININE 10.8 mg/dL (0.7-1.3); GLUCOSE 193 mg/dL (74-106); POTASSIUM 4.3 mmol/L (3.5-5.1); SODIUM 136 mmol/L (136-145)
[2019-12-21 20:58] LABS: ALBUMIN 3.1 g/dL (3.4-5.0); SGOT 15 U/L (15-37); SGPT 16 U/L (30-65); TOTAL BILIRUBIN 0.5 mg/dL (0.2-1.0); TOTAL PROTEIN 7.1 g/dL (6.4-8.2); TROPONIN-I <0.06 ng/mL (<0.06)
[2019-12-21 21:29] VITALS: BP 241/130
--- NOTE | 2019-12-22 08:11 | EKG ---
[facility] [place] [address] ELECTROCARDIOGRAM REPORT Name: ABIMBOLAJOSEFA LEE Room #: DEP [facility].#: [id number] Admission: 12/21/19 Attend Phys: Discharge: 12/21/19 Date of : 75 Report #: [id number] THIS REPORT FOR: cc: Farida Zendejas DNP, Mary E. DNP Lundgren, Craig H. MD [facility] ~ THIS REPORT FOR: //name// [facility] ED Test Date: 2019-12-21 Test Time: 19:43:14 Pat Name: JOSEFA DAILY Department: Room: Gender: Pet Sitting: IESHA : 1975 Requested By: Millie Somers Order Number: [id number] MD: Tejinder Graff Measurements Intervals [place] Rate: 70 P: 63 [place]: 142 QRS: 79 QRSD: 89 T: -30 QT: 423 QTc: 457 Interpretive Statements Sinus rhythm Poor R wave progression Nonspecific ST segment abnormality Compared to ECG 09/01/2019 21:51:48 No significant change was found Electronically Signed On 12-22-2019 8:10:36 CDT by Tejinder Graff [email or web address] <ELECTRONICALLY SIGNED> By: Tejinder Graff MD, FACC 12/22/19 0810 42 42 Tejinder Graff MD, [facility] /EPI
== END 2019-12-21 21:29 | disposition home or self-care (01) ==
LOC: ER 19:12
PROVIDERS: Physician Assistant
DX: R51 Headache (principal); I12.0 Hypertensive chronic kidney disease with stage 5 chronic kidney disease or end stage renal disease; E11.22 Type 2 diabetes mellitus with diabetic chronic kidney disease; N18.6 End stage renal disease; E78.5 Hyperlipidemia, unspecified; Z86.2 Personal history of diseases of the blood and blood-forming organs and certain disorders involving the immune mechanism; Z86.73 Personal history of transient ischemic attack (TIA), and cerebral infarction without residual deficits; Z79.82 Long term (current) use of aspirin; Z79.4 Long term (current) use of insulin; Z79.899 Other long term (current) drug therapy; Z91.013 Allergy to seafood; Z88.8 Allergy status to other drugs, medicaments and biological substances

== ENCOUNTER 2020-07-11 22:18 | Emergency (ER) | payer OTHER ==
[~2020-07-11] VITALS: Ht 175.3 cm; Wt 140.6 kg
[2020-07-11 23:09] LABS: ABSOLUTE NEUTROPHILS 3.4 thou/uL (1.4-8.2); BASOPHILS 1.3 % (0.0-2.0); EOSINOPHILS 6.3 % (0.0-3.0); HEMATOCRIT 36.8 % (42.0-52.0); HEMOGLOBIN 12.1 gm/dL (14.0-18.0); LYMPHOCYTES 22.2 % (24.0-44.0); MCH 28.1 pg (26.0-34.0); MCHC 32.8 g/dL (28.0-37.0); MCV 85.6 fL (80.0-100.0); MONOCYTES 10.3 % (1.0-8.0); PLATELET COUNT 262 thou/uL (150-400); POLYS 59.9 % (36.0-66.0); RBC 4.29 mil/uL (4.50-6.00); RDW 14.1 % (10.5-14.5); WBC 5.7 thou/uL (4.0-11.0)
[2020-07-11 23:10] LABS: CALCIUM 9.1 mg/dL (8.5-10.1); CREATININE 9.1 mg/dL (0.7-1.3); POTASSIUM 4.7 mmol/L (3.5-5.1)
[2020-07-11 23:17] LABS: ALBUMIN 3.7 g/dL (3.4-5.0); TOTAL BILIRUBIN 0.4 mg/dL (0.2-1.0); TOTAL PROTEIN 8.3 g/dL (6.4-8.2)
[2020-07-12] MEDS ORDERED: FLEXERIL PO (01:27)
[2020-07-12 02:13] VITALS: BP 189/88
== END 2020-07-12 02:14 | disposition home or self-care (01) ==
LOC: ER 22:18
PROVIDERS: Emergency Medicine
DX: M54.5 Low back pain (principal); R51.9 Headache, unspecified; E78.5 Hyperlipidemia, unspecified; E11.22 Type 2 diabetes mellitus with diabetic chronic kidney disease; I12.0 Hypertensive chronic kidney disease with stage 5 chronic kidney disease or end stage renal disease; N18.6 End stage renal disease; Z87.442 Personal history of urinary calculi; Z99.2 Dependence on renal dialysis; Z90.49 Acquired absence of other specified parts of digestive tract; Z86.73 Personal history of transient ischemic attack (TIA), and cerebral infarction without residual deficits; Z79.899 Other long term (current) drug therapy; Z79.4 Long term (current) use of insulin; Z79.82 Long term (current) use of aspirin; Z91.041 Radiographic dye allergy status; Z91.013 Allergy to seafood

== ENCOUNTER → 2020-08-18 | Outpatient (CLI) | payer OTHER ==
[~2020-08-18] MED LIST changes: +FLEXERIL PO; +NOVOLOG100 UNIT/M SUBQ; +SENSIPAR90 MG PO
== END ==
LOC: LAB 08-17 08:37
PROVIDERS: ATTEND Internal Medicine Gastroenterology
DX: Z01.812 Encounter for preprocedural laboratory examination (principal); Z20.822 Contact with and (suspected) exposure to COVID-19

== ENCOUNTER 2020-08-22 11:06 | Emergency (ER) | payer OTHER ==
[~2020-08-22] VITALS: Ht 175.3 cm; Wt 142.0 kg
[~2020-08-22 11:06] MED LIST changes: -ASA81BEC PO
[2020-08-22 11:59] LABS: ABSOLUTE NEUTROPHILS 3.4 thou/uL (1.4-8.2); BASOPHILS 1.9 % (0.0-2.0); EOSINOPHILS 8.6 % (0.0-3.0); HEMATOCRIT 31.1 % (42.0-52.0); HEMOGLOBIN 10.1 gm/dL (14.0-18.0); MCH 28.1 pg (26.0-34.0); MCHC 32.6 g/dL (28.0-37.0); MCV 86.1 fL (80.0-100.0); MONOCYTES 9.2 % (1.0-8.0); PLATELET COUNT 230 thou/uL (150-400); POLYS 58.3 % (36.0-66.0); RBC 3.61 mil/uL (4.50-6.00); RDW 13.9 % (10.5-14.5); WBC 5.8 thou/uL (4.0-11.0)
[2020-08-22 12:12] LABS: ALBUMIN 3.2 g/dL (3.4-5.0); CALCIUM 8.6 mg/dL (8.5-10.1); CREATININE 13.1 mg/dL (0.7-1.3); MAGNESIUM 2.2 mg/dL (1.8-2.4); POTASSIUM 4.7 mmol/L (3.5-5.1); TOTAL BILIRUBIN 0.4 mg/dL (0.2-1.0)
[2020-08-22 14:31] VITALS: BP 201/90
[2020-08-25] MEDS ORDERED: ASA81BEC PO (10:37)
== END 2020-08-22 14:40 | disposition home or self-care (01) ==
LOC: ER 11:06
PROVIDERS: Emergency Medicine
DX: E11.65 Type 2 diabetes mellitus with hyperglycemia (principal); E11.22 Type 2 diabetes mellitus with diabetic chronic kidney disease; I12.9 Hypertensive chronic kidney disease with stage 1 through stage 4 chronic kidney disease, or unspecified chronic kidney disease; N18.9 Chronic kidney disease, unspecified; Z79.82 Long term (current) use of aspirin; Z79.899 Other long term (current) drug therapy; Z79.4 Long term (current) use of insulin; Z91.013 Allergy to seafood; Z88.8 Allergy status to other drugs, medicaments and biological substances

== ENCOUNTER → 2020-08-22 | Outpatient (CLI) | payer OTHER ==
[~2020-08-22] VITALS: Ht 175.3 cm; Wt 142.0 kg
[~2020-08-22] MED LIST changes: +ASA81BEC PO
[2020-08-22 09:55] LABS: POTASSIUM 4.7 mmol/L (3.5-5.1)
[2020-08-22 10:26] LABS: CALCIUM 8.4 mg/dL (8.5-10.1); CREATININE 13.3 mg/dL (0.7-1.3)
[2020-08-22 10:29] LABS: ALBUMIN 3.2 g/dL (3.4-5.0); TOTAL BILIRUBIN 0.4 mg/dL (0.2-1.0); TOTAL PROTEIN 6.8 g/dL (6.4-8.2)
--- NOTE | 2020-08-22 13:14 | EKG ---
[address] [place] [address] ELECTROCARDIOGRAM REPORT Name: JOSEFA DAILY [id number] Admission: 08/22/20 Attend Phys: Alejandra Saunders Discharge: Date of : 75 Report #: [id number] [facility] Test Date: 2020-08-22 Test Time: 10:09:51 Pat Name: JOSEFA DAILY Department: Room: Gender: M Compass Operator: JAE : 1975 Requested By: Eileen Higuera Order Number: [id number] MD: Alvaro Hale Measurements Intervals [place] Rate: 84 P: 63 [place]: 142 QRS: 77 QRSD: 95 T: -33 QT: 407 QTc: 482 Interpretive Statements Sinus rhythm Atrial premature complex Probable left atrial enlargement Borderline T abnormalities, inferior leads Borderline prolonged QT interval Compared to ECG 12/21/2019 19:43:14 Electronically Signed On 08-22-2020 13:13:[address] HELPER by Alvaro Hale [email or web address] <ELECTRONICALLY SIGNED> By: Alvaro Hale MD 08/22/20 1313 1009 1009 Alvaro Hale MD /VONDA
== END | disposition home or self-care (01) ==
LOC: GI 09:08
PROVIDERS: ATTEND Internal Medicine Gastroenterology
DX: E11.65 Type 2 diabetes mellitus with hyperglycemia (principal); Z53.8 Procedure and treatment not carried out for other reasons; I12.0 Hypertensive chronic kidney disease with stage 5 chronic kidney disease or end stage renal disease; E11.22 Type 2 diabetes mellitus with diabetic chronic kidney disease; N18.9 Chronic kidney disease, unspecified; G47.30 Sleep apnea, unspecified; F17.210 Nicotine dependence, cigarettes, uncomplicated; E78.5 Hyperlipidemia, unspecified; Z98.890 Other specified postprocedural states; Z79.899 Other long term (current) drug therapy; Z86.73 Personal history of transient ischemic attack (TIA), and cerebral infarction without residual deficits; Z79.4 Long term (current) use of insulin; Z87.19 Personal history of other diseases of the digestive system

== ENCOUNTER → 2020-08-25 | Outpatient (CLI) | payer OTHER ==
[~2020-08-25] MED LIST changes: +ASA81BEC PO
== END ==
LOC: LAB 09:44
PROVIDERS: ATTEND Internal Medicine Gastroenterology
DX: Z01.812 Encounter for preprocedural laboratory examination (principal); Z20.822 Contact with and (suspected) exposure to COVID-19

== ENCOUNTER → 2020-08-29 | Outpatient (CLI) | payer OTHER ==
[~2020-08-29] VITALS: Ht 175.3 cm; Wt 142.0 kg
== END | disposition home or self-care (01) ==
LOC: GI 06:31
PROVIDERS: ATTEND Internal Medicine Gastroenterology
DX: Z01.818 Encounter for other preprocedural examination (principal); E66.01 Morbid (severe) obesity due to excess calories; I12.0 Hypertensive chronic kidney disease with stage 5 chronic kidney disease or end stage renal disease; E11.22 Type 2 diabetes mellitus with diabetic chronic kidney disease; N18.6 End stage renal disease; G47.30 Sleep apnea, unspecified; F17.210 Nicotine dependence, cigarettes, uncomplicated; E78.00 Pure hypercholesterolemia, unspecified; Z98.890 Other specified postprocedural states; Z79.899 Other long term (current) drug therapy; Z86.73 Personal history of transient ischemic attack (TIA), and cerebral infarction without residual deficits; Z90.49 Acquired absence of other specified parts of digestive tract; Z79.4 Long term (current) use of insulin; Z87.19 Personal history of other diseases of the digestive system; Z68.42 Body mass index [BMI] 45.0-49.9, adult
CPT/HCPCS: 62110; 62900

== ENCOUNTER → 2020-11-22 | Outpatient (CLI) | payer OTHER | LOC: SJCVCIMAG 08:43 | PROVIDERS: ATTEND Internal Medicine Cardiovascular Disease | DX: Z01.818 Encounter for other preprocedural examination (principal); R94.31 Abnormal electrocardiogram [ECG] [EKG]; I49.3 Ventricular premature depolarization; R06.09 Other forms of dyspnea; E11.22 Type 2 diabetes mellitus with diabetic chronic kidney disease; I13.11 Hypertensive heart and chronic kidney disease without heart failure, with stage 5 chronic kidney disease, or end stage renal disease; N18.6 End stage renal disease; E78.5 Hyperlipidemia, unspecified; E78.00 Pure hypercholesterolemia, unspecified; E66.01 Morbid (severe) obesity due to excess calories; J44.9 Chronic obstructive pulmonary disease, unspecified; E11.40 Type 2 diabetes mellitus with diabetic neuropathy, unspecified; F17.200 Nicotine dependence, unspecified, uncomplicated; F32.9 Major depressive disorder, single episode, unspecified; Z99.2 Dependence on renal dialysis; Z86.73 Personal history of transient ischemic attack (TIA), and cerebral infarction without residual deficits; Z79.899 Other long term (current) drug therapy; Z79.82 Long term (current) use of aspirin; Z72.89 Other problems related to lifestyle; Z79.4 Long term (current) use of insulin ==

== ENCOUNTER 2020-12-29 09:07 | Inpatient (IN) | payer OTHER ==
[~2020-12-29] VITALS: Ht 152.4 cm; Wt 144.3 kg
--- NOTE | ~2020-12-29 | O ---
[facility] [place] [address] OPERATIVE REPORT Name: ABIMBOLAJOSEFA ROBBIE Room #: 453-P [facility] IN .R.#: [id number] Admission: 12/29/20 Attend Phys: Shoaib Telles MD Discharge: Date of : 75 Report #: [id number] THIS REPORT FOR: cc: Farida Zendejas DNP, Mary E. DNP Joseph, Sigi P. MD ~ DOC #: [id number] cc: QUIQUE Batres MD DATE OF SERVICE: 12/29/2020 PREOPERATIVE DIAGNOSIS: 1. Morbid obesity. 2. Type 2 diabetes. 3. Hypertension. 4. Hyperlipidemia. 5. Chronic renal failure. POSTOPERATIVE DIAGNOSES: 1. Morbid obesity. 2. Type 2 diabetes. 3. Hypertension. 4. Hyperlipidemia. 5. Chronic renal failure. OPERATIVE PROCEDURE: 1. Laparoscopic Anh-en-Y gastric bypass. 2. Upper GI endoscopy. SURGEON: Dr. Shoaib Telles INDICATIONS FOR PROCEDURE: The patient is a 45-year-old male who presented with features of morbid obesity. He was noted to have a weight of 145 kilograms with a BMI of 47 with the above listed comorbidities. The patient was advised laparoscopic vertical sleeve gastrectomy and possible hiatal hernia repair. The patient showed understanding and agreed to proceed. PROCEDURE IN DETAIL: After explaining to the patient in detail and informed consent was obtained, the patient was identified in the preoperative holding area. The patient was transferred to the operating room and was placed in supine position. Sequential compressive devices were placed for DVT prophylaxis. Preoperative antibiotics were given. After induction of anesthesia, the abdomen was prepped and draped in a sterile fashion. Through a left upper quadrant, 1 cm incision and using Optiview technique, peritoneal cavity was entered and pneumoperitoneum was created. Thereafter, under direct [address] [address] OPERATIVE REPORT Name: JOSEFA DAILY Room #: 453-P [facility] IN .R.#: [id number] Admission: 12/29/20 Attend Phys: Shoaib Telles MD Discharge: Date of : 75 Report #: [id number] vision, another 5 mm trocar was placed in the left mid abdomen. Another 12 mm trocar was placed in the right mid abdomen. Another 5 mm trocar was placed in the right subcostal region and through a 1 cm incision in the epigastrium a Joanne retractor was introduced and the left lobe of the liver was retracted. Upon initial inspection, I did not see any obvious evidence of a hiatal hernia. I divided the gastrohepatic omentum using EnSeal and then divided the fatty tissues and small blood vessels along the lesser curve of the stomach. Using an Endo-LESVIA white load stapler with Robyn-Strip, I then fired a single green load stapler with Robyn-Strips in a transverse fashion. The posterior attachments of the stomach and the pancreas were released. I then mobilized the angle of His by dividing the gastrophrenic ligament. I then continued to create the pouch by dividing the stomach in a vertical fashion up to the angle of His using Endo-LESVIA green load stapler with Robyn-Strips. Once this was completed, I then divided the omentum in the middle using EnSeal. I then identified the small bowel at the ligament of Treitz and measured downstream for about 50 cm. An enterotomy was made at this point. Posterior gastrojejunostomy was made to create a 3 cm sized lumen and anastomosis. The common gastroenterotomy was closed in layers using 2-0 V-Loc continuous sutures in 2 layers. I then divided the biliary limb just proximal to the anastomosis using an Endo-LESVIA blue load stapler with Robyn-Strips. The small bowel was then measured downstream for about 125 cm. An enterotomy was made at this point. Another enterotomy was made on the biliary limb and a [id number] jejunojejunostomy was made. The common enterotomy was closed using another blue load stapler with Robyn-Strips. The mesenteric defect was closed with 2-0 silk continuous sutures. I then proceeded with upper GI endoscopy. After clamping the Anh limb, I then introduced the scope into the stomach. I entered the Anh limb without difficulty and an air leak test was performed by insufflation of the stomach and by irrigation of fluid along the staple line. There was no leak that was noted. Absolute hemostasis was ensured. Thorough saline irrigation was given. The Joanne retractor was removed. The 12 mm port site incision was closed with 0 Vicryl for the fascia. Skin was closed with 4-0 Monocryl for all the incisions. Dermabond was applied. The patient was stable at the end of the procedure. The patient was awoken from anesthesia and was transferred to the recovery room in stable condition. Estimated blood loss was approximately 20 mL CONDITION: The patient is stable. Fluids given per anesthesia notes. SPECIMEN SENT: None. COMPLICATIONS: None. ANESTHESIA: General anesthesia. [facility] [address] [place] [address] OPERATIVE REPORT Name: JOSEFA DAILY Room #: 453-P ADM IN M.R.#: [id number] Admission: 12/29/20 Attend Phys: Shoaib Telles MD Discharge: Date of : 75 Report #: [id number] MD GAVINO Rayo/DAVIS/TAJ By: 1322 1510 Shoaib Telles MD /nt
[~2020-12-29 09:07] MED LIST changes: +DIALYVITE TABL1 EACH PO; +GABAPENTIN 100100 MG PO; +LIPITOR40 MG PO; +OLMESARTAN MEDO40 MG PO
[2020-12-29 10:21] VITALS: BP 146/70
--- NOTE | 2020-12-29 19:23 | NUR ---
Patient admitted to floor post laparoscopic gastric bypass. at bedside. Assessment completed. 9/10 pain noted in abdomen and nausea. Patient became comfortable during the admission questions and was able to answer. Morphine and zofran given. 2 hours later patient was dry heaving for 5 mins and it resolved. Toradol given for pain. Vital signs stable. SCDS applied. Comfortable now and resting in bed.
[2020-12-29 19:34] VITALS: BP 190/85
--- NOTE | 2020-12-30 02:34 | NUR ---
PT CARE ASSUMED WITH AT BEDSIDE OF THE BED WITH PT SLEEPING.PT IS A/O X4.PT C/O PAIN AND PAIN MANAGED WITH MORPHINE.PT WAS WALKED IN THE HALLWAY WITH NO ISSUES NOTED.DIALYSIS ACCESS AV FISTULA ON JEREMIAH.WILL CONTINUE TO MONITOR PER POC
[2020-12-30 04:53] VITALS: BP 141/59
[2020-12-30 05:31] LABS: ABSOLUTE NEUTROPHILS 8.1 thou/uL (1.4-8.2); BASOPHILS 0.2 % (0.0-2.0); EOSINOPHILS 0.2 % (0.0-3.0); HEMATOCRIT 35.7 % (42.0-52.0); HEMOGLOBIN 11.8 gm/dL (14.0-18.0); LYMPHOCYTES 8.5 % (24.0-44.0); MCH 27.9 pg (26.0-34.0); MCHC 33.1 g/dL (28.0-37.0); MCV 84.5 fL (80.0-100.0); MONOCYTES 7.8 % (1.0-8.0); PLATELET COUNT 185 thou/uL (150-400); POLYS 83.3 % (36.0-66.0); RBC 4.23 mil/uL (4.50-6.00); RDW 15.9 % (10.5-14.5); WBC 9.7 thou/uL (4.0-11.0)
[2020-12-30 05:52] LABS: ALBUMIN 3.1 g/dL (3.4-5.0); CALCIUM 7.8 mg/dL (8.5-10.1); POTASSIUM 4.4 mmol/L (3.5-5.1); TOTAL BILIRUBIN 0.5 mg/dL (0.2-1.0); TOTAL PROTEIN 6.9 g/dL (6.4-8.2)
[2020-12-30 06:13] LABS: CREATININE 8.5 mg/dL (0.7-1.3)
[2020-12-30 07:35] VITALS: BP 147/84
[2020-12-30 15:45] VITALS: BP 108/60
--- NOTE | 2020-12-30 16:47 | NUR ---
PT ADMITTED RELATED TO GASTRIC BYPASS. CM REVIEWED CHART AND SPOKE WITH CARE TEAM. CM MET WITH PT AT BEDSIDE THIS DAY. PT APPEARED OT BE A&OX4. CM ROLE INTRODUCED. PT INDICATED HE RESIDES [employer] WITH HIS SPOUSE AND TWO KIDS. HE INDICATED 5 STEPS TO ENTER THEN ALL NEEDS ON 1 LEVEL. 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 PT INDICATED HE HAS A CPAP FOR HOME USE. 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 PT INDICATED HE PLANS TO RETURN HOME ONCE MEDICALLY STABLE. NO OTHER CM INTERVENTION INDICATED. CASE CLOSED.
--- NOTE | 2020-12-30 17:48 | NUR ---
Patient felt nausea after eating. HD completed, tolerated well. chair rest now. no complaint.
[2020-12-30 19:24] VITALS: BP 123/67
[2020-12-31 05:33] VITALS: BP 135/65
--- NOTE | 2020-12-31 05:34 | NUR ---
Assumed pt care at 1900. VSS. Denies N/V. C/o abd pain LOP 10/01,medicated with Morphine with relief reported. Pt chose to remain on the chair for the night encouraged to keep feet elevated and doing so. Also encouraged to use incentive spirometer [place] and doing so. NSR on telemetry,resting quietly w/o distress will continue to monitor pt.
[2020-12-31 07:35] VITALS: BP 138/74
[2020-12-31] MEDS ORDERED: PROTONIX 20 MG20 M1 PO (14:42)
[2020-12-31] MEDS ORDERED: VITAMIN B12-FO1 EAC1 PO (14:46)
[2020-12-31 14:59] VITALS: BP 138/74
== END 2020-12-31 16:30 | disposition home or self-care (01) | DRG 619 ==
LOC: TBA 09:07 → 4W 09:07 → PRE 09:54 → 4W 15:30 → PRE 15:58 → 4W 12-31 16:30
PROVIDERS: ADMIT Surgery; ATTEND Surgery
PROC: 0D164ZA Bypass Stomach to Jejunum, Percutaneous Endoscopic Approach (ICD-10-PCS; principal; 2020-12-29)
PROC: 0DJ08ZZ Inspection of Upper Intestinal Tract, Via Natural or Artificial Opening Endoscopic (ICD-10-PCS; 2020-12-29)
PROC: 5A1D70Z Performance of Urinary Filtration, Intermittent, Less than 6 Hours Per Day (ICD-10-PCS; 2020-12-30)
DX: E66.01 Morbid (severe) obesity due to excess calories (principal); N18.6 End stage renal disease; I12.0 Hypertensive chronic kidney disease with stage 5 chronic kidney disease or end stage renal disease; E78.00 Pure hypercholesterolemia, unspecified; E78.5 Hyperlipidemia, unspecified; F32.9 Major depressive disorder, single episode, unspecified; F41.9 Anxiety disorder, unspecified; F17.210 Nicotine dependence, cigarettes, uncomplicated; G47.33 Obstructive sleep apnea (adult) (pediatric); E11.40 Type 2 diabetes mellitus with diabetic neuropathy, unspecified; E11.22 Type 2 diabetes mellitus with diabetic chronic kidney disease; Z79.4 Long term (current) use of insulin; Z79.82 Long term (current) use of aspirin; Z68.44 Body mass index [BMI] 60.0-69.9, adult; Z79.899 Other long term (current) drug therapy; Z90.49 Acquired absence of other specified parts of digestive tract; Z86.73 Personal history of transient ischemic attack (TIA), and cerebral infarction without residual deficits; Z99.2 Dependence on renal dialysis; Z72.89 Other problems related to lifestyle; Z88.8 Allergy status to other drugs, medicaments and biological substances; Z91.013 Allergy to seafood
CPT/HCPCS: 10047; 32100; 50010; 50101; 50222; 50386; 50555; 50558; 50739; 51489; 52265; 52266; 53307; 54022; 54118; 56462; 56525; 56526; 57092; 58574; 58587; 58870; 58872; 58873; 62110; 62900; 65131; 70005

== ENCOUNTER → 2021-06-06 | Outpatient (CLI) | payer OTHER ==
[~2021-06-06] MED LIST changes: +COLACE100 MG PO; +ELIQUIS5 MG PO; +KEPPRA XR500 MG PO; +LANTUS SUBQ; +LIPITOR 10 MG10 M1 PO; +MIDODRINE HCL 55 M1 PO; +PROTONIX 20 MG20 M1 PO; +RENVELA0.8 GM PO; +TUMS ULTRA400 MG PO; +VITAMIN B12-FO1 EAC1 PO
== END | disposition home or self-care (01) ==
LOC: SJCVC 14:28
PROVIDERS: ATTEND Internal Medicine Cardiovascular Disease
DX: R00.0 Tachycardia, unspecified (principal); E78.5 Hyperlipidemia, unspecified; N18.6 End stage renal disease; E08.00 Diabetes mellitus due to underlying condition with hyperosmolarity without nonketotic hyperglycemic-hyperosmolar coma (NKHHC); J44.9 Chronic obstructive pulmonary disease, unspecified; I63.9 Cerebral infarction, unspecified; F32.A Depression, unspecified; E66.9 Obesity, unspecified; R94.31 Abnormal electrocardiogram [ECG] [EKG]; Z86.73 Personal history of transient ischemic attack (TIA), and cerebral infarction without residual deficits; Z98.84 Bariatric surgery status; R06.00 Dyspnea, unspecified; Z79.82 Long term (current) use of aspirin; Z79.4 Long term (current) use of insulin; Z90.49 Acquired absence of other specified parts of digestive tract; Z98.890 Other specified postprocedural states; Z99.2 Dependence on renal dialysis; Z79.899 Other long term (current) drug therapy; Z88.8 Allergy status to other drugs, medicaments and biological substances

== ENCOUNTER 2021-08-20 13:27 | Emergency (ER) | payer OTHER ==
[~2021-08-20] VITALS: Ht 175.3 cm; Wt 89.8 kg
[2021-08-20 14:49] VITALS: BP 183/98
== END 2021-08-20 14:58 | disposition home or self-care (01) ==
LOC: ER 13:27
DX: S09.90XA Unspecified injury of head, initial encounter (principal); E78.00 Pure hypercholesterolemia, unspecified; I12.0 Hypertensive chronic kidney disease with stage 5 chronic kidney disease or end stage renal disease; E11.22 Type 2 diabetes mellitus with diabetic chronic kidney disease; N18.6 End stage renal disease; F41.9 Anxiety disorder, unspecified; F32.9 Major depressive disorder, single episode, unspecified; Z99.2 Dependence on renal dialysis; Z90.49 Acquired absence of other specified parts of digestive tract; Z79.4 Long term (current) use of insulin; Z79.82 Long term (current) use of aspirin; Z79.899 Other long term (current) drug therapy; Z91.041 Radiographic dye allergy status; Z91.013 Allergy to seafood; W18.30XA Fall on same level, unspecified, initial encounter; Y93.89 Activity, other specified; Y92.89 Other specified places as the place of occurrence of the external cause; Y99.8 Other external cause status